=== PATIENT | male | born 1955 | race Caucasian/White ===

== ENCOUNTER 2016-06-17 19:45 | Emergency (ER) | payer BC, OTHER ==
[~2016-06-17] VITALS: Ht 172.7 cm; Wt 79.2 kg
[~2016-06-17 19:45] MED LIST: FENT25DI10 TP; FOLI1TAB7 PO; IBUP-103 PO; NXM/40 PO; OXYC1CAP5 PO; vitamin B12 INJ
[2016-06-17 19:53] VITALS: TEMP 36.6; Ht 172.7 cm; Wt 79.2 kg
[2016-06-17] MEDS ORDERED: PROMETHAZINE HCL INJ 25 MG/ML 1 ML VIAL IV STA (20:02)
[2016-06-17] MEDS ORDERED: SODIUM CHLORIDE 0.9% 1000ML 500 ML IV STA (20:02)
[2016-06-17] MEDS ORDERED: SODIUM CHLORIDE 0.9% 1000ML 1,000 ML IV STA (20:02)
[2016-06-17] MEDS ORDERED: ONDANSETRON 8 MG/54 ML D5W IV STA (20:02)
[2016-06-17] MEDS ORDERED: SENN8.6T36 PO (20:16)
[2016-06-17] MEDS ORDERED: DRGTP50 TD (20:16)
[2016-06-17] MEDS: MoRPHine SULFATE 4 MG/ML 1 ML CARP\\VIAL IV PRN ×2 (20:35→21:33)
[2016-06-17] MEDS ORDERED: FENTANYL CITRATE INJ 50 MCG/1 ML 2 ML VIAL IV PRN (20:45)
[2016-06-17 20:52] LABS: BUN/CREATININE RATIO 19.4 (10-20); CALCIUM 8.6 mg/dl (8.5-10.1); CREATININE 1.1 mg/dl (0.60-1.40); POTASSIUM 3.2 mmol/L (3.5-5.1)
[2016-06-17 20:54] LABS: ALB/GLOB RATIO 0.7 (0.9-2)
[2016-06-17 21:06] LABS: BASO % 0.1 %; BASO ABS # 0.01 K/uL (0-0.2); COMPLETE YES; DOHLE BODIES OCCASIONAL; EOS % 3.2 %; HYPERSEGMENTED POLYS 1+; IG% 0.3 %; LYMPH % 6.3 %; LYMPH ABS # 0.45 K/uL (1.2-3.4); MEAN CELL VOLUME 90.7 fL (80-100); MEAN CORPUSCULAR HGB CONC 34.2 g/dl (32-36); NEUT % 84.1 %; PLATELET COUNT 54 K/uL (130-400); PLT ESTIMATE DECREASED; RED BLOOD COUNT 4.19 M/uL (4.7-6.1); WHITE BLOOD COUNT 7.18 K/uL (4.8-10.8)
[2016-06-17] MEDS ORDERED: PROMETHAZINE HCL INJ 25 MG in SODIUM CHLORIDE 0.9% 50ML 50 ML IV STA (21:20)
--- NOTE | 2016-06-17 21:31 | DIAGNOSTIC IMAGING REPORT ---
ABDOMEN AND PELVIS CT WITHOUT CONTRAST CT DOSE: 432.92 mGy.cm HISTORY: Prostate cancer. Generalized abdominal pain. TECHNIQUE: Multiaxial CT images of the abdomen and pelvis were performed without contrast. COMPARISON STUDY: Abdomen and pelvis CT 10/29/2012. FINDINGS: Small left pleural effusion. Mild nodular thickening within the right pleural space. This may be due to a combination of postoperative change and pleural metastatic disease. There is a right basilar pleural catheter and a small right hydropneumothorax. Multiple bilateral pulmonary nodules identified which likely represents metastatic disease. There is a 4.3 cm round density within the base of the right lower lobe. This may represent a metastatic nodule rather than round atelectasis. No pneumoperitoneum. No pneumatosis. No suspicious lytic or blastic osseous lesions. There are right sixth through ninth lateral rib fractures. There are 2 stable hypodense lesions within the liver with the largest in the right hepatic lobe measuring 9 mm. These are technically too small to characterize but favor cysts. No new hepatic or splenic lesions. The gallbladder, pancreas, adrenal glands, and kidneys are unremarkable. No hydronephrosis. No retroperitoneal lymphadenopathy. The prostate gland is surgically absent. The latter is unremarkable. Suboptimal evaluation for bowel pathology due to the lack of intravenous and oral contrast. However, there is no definite bowel wall thickening or obstruction. Normal appendix. IMPRESSION: 1. No bowel wall thickening or obstruction. 2. Normal appendix. 3. Metastatic disease within the lung bases as described above. 3. There is a right basilar pleural catheter with a small right hydropneumothorax. 5. Small left pleural effusion. 6. Right lateral sixth through ninth rib fractures. Electronically signed by: Maximo Ely M.D. 06/17/2016 9:29 PM Dictated Date/Time: 06/17/2016 9:17 PM
--- NOTE | 2016-06-17 21:38 | EMERGENCY ROOM VISIT NOTE ---
History Report prepared by Kimmy: Sammy Hickey Under the Supervision of: Dr. Doyle Cutler M.D. First contact with patient: 19:59 Chief Complaint: ABDOMINAL PAIN Stated Complaint: PT DOES HAVE CANCER;VOMITING,ABD PAIN History of Present Illness The patient is a 60 year old male who presents to the Emergency Room with complaints of constant "sharp" RUQ abdominal pain beginning today. 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 His most recent chemotherapy treatment was a little over a week ago. The patient currently has a pleural effusion on the right side. He has a drain in place. The patient's notes that the patient has been constipated recently. She states that he is has been taking laxatives to help with the constipation. The patient has associated vomiting. He states that his constipation began first , followed by his abdominal pain, and then his vomiting. He has no history of abdominal surgeries besides a biopsy. Source of History: patient, spouse/significant other () Onset: Today Position: abdomen (RUQ) Quality: sharp Timing: constant Associated Symptoms: + vomiting Note: The patient has associated constipation. Review of Systems See HPI for pertinent positives & negatives. A total of 10 systems reviewed and were otherwise negative. Past Medical & Surgical Medical Problems: (1) Hx-Prostatic Malignancy (2) Lumbago (3) Reflux Esophagitis (4) Sarcomatoid carcinoma of lung Surgical Problems: (1) History of decompression of ulnar nerve (2) History of lumbosacral spine surgery (3) History of prostatectomy Family History No pertinent family history stated. Social History Smoking Status: Current Every Day Smoker Alcohol Use: occasionally Marital Status: Housing Status: lives with family Occupation Status: employed Current/Historical Medications Scheduled Esomeprazole Magnesium (Nexium), 40 MG PO Q2D Fentanyl (Fentanyl), 50 MCG TD [id number] Folic Acid (Folvite), 1 TAB PO DAILY Sennosides-Docusate Sodium (Docusate Sodium/Senna), 2 TAB PO DAILY [vitamin B12], INJ EVERY 90 DAYS Scheduled PRN Ibuprofen Tab (Advil), 200-600 MG PO Q4H PRN for Pain Oxycodone Hcl (Oxycodone Hcl), 5 MG PO Q6 PRN for Pain Promethazine Hcl (Phenergan), 25 MG PO Q6H PRN for Nausea Allergies Coded Allergies: Adhesives (Verified Allergy, Intermediate, rash blisters, 06/17/16) Hydromorphone (Unverified Adverse Reaction, Unknown, VOMITING, 06/17/16) HIS FAMILY DOES NOT WANT HIM TO GET DILAUDID BECAUSE IT MAKES HIM VOMIT Physical Exam Vital Signs Date Time Temp Pulse Resp B/P Pulse Ox O2 Delivery O2 Flow Rate FiO2 06/17/16 22:30 68 15 131/78 93 Room Air 06/17/16 21:38 56 16 137/84 95 Room Air 06/17/16 19:53 36.6 90 20 121/74 93 Room Air Physical Exam GENERAL: Patient is in no acute distress. HEENT: No acute trauma, normocephalic atraumatic, mucous membranes moist, no nasal congestion, no scleral icterus. NECK: No stridor, no adenopathy, no meningismus, trachea is midline. LUNGS: Decreased breath sounds on the right with some crackles on the left. No wheezing. HEART: Without murmurs gallops or rubs, regular rate and rhythm. CHEST: Bandage to the right lateral chest wall consistent with his pleural drain. ABDOMEN: Moderate RUQ tenderness to palpation. Soft, bowel sounds positive, no hernias, no peritonitis. EXTREMITIES: No cyanosis or edema, full range of motion of all the joints without pain or difficulty, no signs for acute trauma. NEUROLOGIC: Oriented x 3, no acute motor or sensory deficits, no focal weakness. SKIN: No rash, no jaundice, no diaphoresis. Medical Decision & Procedures ER Provider Diagnostic Interpretation: X ray results and stated below per my interpretation and radiologist interpretation. Other radiology results and stated below per my review and radiologist interpretation: ABDOMINAL ULTRASOUND, RIGHT UPPER QUADRANT FINDINGS: Pancreas: The pancreatic tail is obscured by overlying bowel gas. The remaining portions of the pancreas are within normal limits. Liver: No hepatic masses. Trace perihepatic fluid. Gallbladder: Gallbladder sludge. No gallbladder wall thickening. A few small gallbladder polyps are again noted. These are subcentimeter in size. CBD: 3 mm. Right kidney: No hydronephrosis. IMPRESSION: 1. Gallbladder sludge with a few subcentimeter gallbladder polyps. No gallbladder wall thickening. 2. Trace perihepatic fluid. Electronically signed by: Maximo Ely M.D. ABDOMEN AND PELVIS CT WITHOUT CONTRAST FINDINGS: Small left pleural effusion. Mild nodular thickening within the right pleural space. This may be due to a combination of postoperative change and pleural metastatic disease. There is a right basilar pleural catheter and a small right hydropneumothorax. Multiple bilateral pulmonary nodules identified which likely represents metastatic disease. There is a 4.3 cm round density within the base of the right lower lobe. This may represent a metastatic nodule rather than round atelectasis. No pneumoperitoneum. No pneumatosis. No suspicious lytic or blastic osseous lesions. There are right sixth through ninth lateral rib fractures. There are 2 stable hypodense lesions within the liver with the largest in the right hepatic lobe measuring 9 mm. These are technically too small to characterize but favor cysts. No new hepatic or splenic lesions. The gallbladder, pancreas, adrenal glands, and kidneys are unremarkable. No hydronephrosis. No retroperitoneal lymphadenopathy. The prostate gland is surgically absent. The latter is unremarkable. Suboptimal evaluation for bowel pathology due to the lack of intravenous and oral contrast. However, there is no definite bowel wall thickening or obstruction. Normal appendix. IMPRESSION: 1. No bowel wall thickening or obstruction. 2. Normal appendix. 3. Metastatic disease within the lung bases as described above. 3. There is a right basilar pleural catheter with a small right hydropneumothorax. 5. Small left pleural effusion. 6. Right lateral sixth through ninth rib fractures. Electronically signed by: Maximo Ely M.D. CHEST ONE VIEW PORTABLE FINDINGS: Left subclavian Port-A-Cath terminates in the distal SVC. Right basilar pleural catheter is not significant changed in position. There is again noted a right-sided hydropneumothorax. The fluid component remains the same. However, the pneumothorax component has progressed. This demonstrates a lateral pleural gap of 1.8 cm. Previously, this was no significant lateral pleural gap. Trace left pleural effusion. The heart is normal in size. Right pleural thickening is again noted. IMPRESSION: 1. There is again noted a right-sided hydropneumothorax. The pneumothorax component has increased in size in the interval. However, the right basilar chest tube is unchanged in position. 2. Trace left pleural effusion. 3. Right nodular pleural thickening persists. Electronically signed by: Maximo Ely M.D. Laboratory Results 06/17/16 20:23 Red Blood Count 4.19, Mean Corpuscular Volume 90.7, Mean Corpuscular Hemoglobin 31.0, Mean Corpuscular Hemoglobin Concent 34.2, Mean Platelet Volume 10.0, Neutrophils (%) (Auto) 84.1, Lymphocytes (%) (Auto) 6.3, Monocytes (%) (Auto) 6.0, Eosinophils (%) (Auto) 3.2, Basophils (%) (Auto) 0.1, Neutrophils # (Auto) 6.04, Lymphocytes # (Auto) 0.45, Monocytes # (Auto) 0.43, Eosinophils # (Auto) 0.23, Basophils # (Auto) 0.01 06/17/16 20:23 Test 06/17/16 20:23 White Blood Count 7.18 K/uL (4.8-10.8) Red Blood Count 4.19 M/uL (4.7-6.1) Hemoglobin 13.0 g/dL (14.0-18.0) Hematocrit 38.0 % (42-52) Mean Corpuscular Volume 90.7 fL (80-100) Mean Corpuscular Hemoglobin 31.0 pg (25-34) Mean Corpuscular Hemoglobin Concent 34.2 g/dl (32-36) Platelet Count 54 K/uL (130-400) Mean Platelet Volume 10.0 fL (7.4-10.4) Neutrophils (%) (Auto) 84.1 % Lymphocytes (%) (Auto) 6.3 % Monocytes (%) (Auto) 6.0 % Eosinophils (%) (Auto) 3.2 % Basophils (%) (Auto) 0.1 % Neutrophils # (Auto) 6.04 K/uL (1.4-6.5) Lymphocytes # (Auto) 0.45 K/uL (1.2-3.4) Monocytes # (Auto) 0.43 K/uL (0.11-0.59) Eosinophils # (Auto) 0.23 K/uL (0-0.5) Basophils # (Auto) 0.01 K/uL (0-0.2) RDW Standard Deviation 47.5 fL (36.4-46.3) RDW Coefficient of Variation 14.4 % (11.5-14.5) Immature Granulocyte % (Auto) 0.3 % Immature Granulocyte # (Auto) 0.02 K/uL (0.00-0.02) Hypersegmented Polys 1+ Dohle Bodies OCCASIONAL Platelet Estimate DECREASED Anion Gap 11.0 mmol/L (3-11) Est Creatinine Clear Calc Drug Dose 67.3 ml/min Estimated GFR () 82.9 Estimated GFR (Non- 71.6 BUN/Creatinine Ratio 19.4 (10-20) Calcium Level 8.6 mg/dl (8.5-10.1) Total Bilirubin 0.7 mg/dl (0.2-1) Aspartate Amino Transf (AST/SGOT) 13 U/L (15-37) Alanine Aminotransferase (ALT/SGPT) 26 U/L (12-78) Alkaline Phosphatase 105 U/L (45-117) Total Protein 7.2 gm/dl (6.4-8.2) Albumin 2.9 gm/dl (3.4-5.0) Globulin 4.3 gm/dl (2.5-4.0) Albumin/Globulin Ratio 0.7 (0.9-2) Lipase 79 U/L (73-393) Laboratory results reviewed by me. Medications Administered Medications (Trade) Dose Ordered Sig/Chao Route Start Time Stop Time Status Last Admin Dose Admin Sodium Chloride (Nss 1000ml) 500 ml @ 999 mls/hr Q31M STAT IV 06/17/16 20:02 06/17/16 20:32 DC 06/17/16 20:02 999 MLS/HR Promethazine HCl (Phenergan Inj) 6.25 mg NOW STAT IV 06/17/16 20:02 06/17/16 20:06 DC 06/17/16 20:34 6.25 MG Ondansetron HCl 8 mg 8 mg NOW STAT IV 06/17/16 20:02 06/17/16 20:06 DC 06/17/16 20:34 8 MG Sodium Chloride (Nss 1000ml) 1,000 ml @ 200 mls/hr Q5H STAT IV 06/17/16 20:02 06/18/16 01:01 06/17/16 20:36 200 MLS/HR Morphine Sulfate (MoRPHine SULFATE INJ) 4 mg Q30M PRN IV 06/17/16 20:15 07/01/16 20:14 06/17/16 21:33 4 MG Fentanyl Citrate (Fentanyl Inj) 100 mcg Q15M PRN IV 06/17/16 20:45 07/01/16 20:44 06/17/16 20:52 100 MCG ED Course 1958: The patient was evaluated in room C8. A complete history and physical exam was performed. 2001: Ordered NSS 1000 mL @ 200 mL/hr IV, Zofran 8 mg IV, Phenergan Inj 6.25 mg IV, NSS 500 mL @ 999 mL/hr IV. 2014: The patient would like something more for his pain. Ordered Morphine Sulfate 4 mg IV. 2044: Ordered Fentanyl Inj 100 mcg IV. 2116: I checked in on the patient. He just returned from CT, and is dry heaving. His pain has not improved. 2119: Ordered Promethazine HCl 25 mg/NSS 51 mL @ 204 mL/hr IV. 2208: I reassessed the patient. He is more comfortable. I updated him of his imaging results. He was previously unaware of the rib fractures. 2301: Reevaluated the patient. He would like to go home. Discussed results and discharge instructions: he verbalized understanding and agreement. Ordered Phenergan Supp 50 mg IN. The patient is ready for discharge. Medical Decision The patient is a 60 year old male who presents to the ED with complaints of RUQ abdominal pain. Differential diagnoses considered include viral illness, bowel obstruction, dehydration, bowel rupture, biliary colic, appendicitis, and pancreatitis. There is no leukocytosis or concerning anemia. No significant electrolyte abnormality, kidney failure, hepatitis or pancreatitis. Chest x-ray shows chronic findings on the right, there was no new pneumonia, no free air. Gallbladder ultrasound shows sludge, no acute cholecystitis. Abdominal and pelvis CT shows 3 rib fractures on the right, chronic findings of the right lung , there was no acute bowel obstruction. CT scan showed a normal appendix. The patient presents with vomiting, right upper quadrant abdominal pain. He has a known malignancy to the right lung. He is on chemotherapy. The patient received IV saline, IV morphine and IV Zofran. He required IV Phenergan and IV fentanyl for better symptom control. I talked the patient about staying in the hospital versus going home, he does not want to stay, his family does not want him to stay. I do think his pain appears to be from his right rib fractures. The fractures could be from his coughing. Certainly, a viral illness or biliary colic is also a consideration. The patient is going to be discharged with nausea medication, he already has Zofran and another type of nausea medication at home. I will add some Phenergan. He has pain medication to use as needed. He will rest and slowly advance his diet. If worsening, he will return. Impression Primary Impression: Vomiting Additional Impressions: Upper abdominal pain, Fracture of rib of right side Scribe Attestation The scribe's documentation has been prepared under my direction and personally reviewed by me in its entirety. I confirm that the note above accurately reflects all work, treatment, procedures, and medical decision making performed by me. Departure Information Dispostion Home / Self-Care Prescriptions Promethazine Hcl (Phenergan) 25 Mg Tab 25 MG PO Q6H Y for Nausea, #12 TAB Prov: Doyle Cutler M.D. 06/17/16 Referrals Leny Rehman M.D. (PCP) Forms HOME CARE DOCUMENTATION FORM, IMPORTANT VISIT INFORMATION, My [facility] Patient Instructions A Signature Page Additional Instructions phenergan 1 tab orally for nausea as needed may try phenergan suppositories also if needed bland diet--crackers, soup, toast, gatorade return if worsening see lian pimentel this week for a recheck continue the meds for constipation as before
--- NOTE | 2016-06-17 22:25 | DIAGNOSTIC IMAGING REPORT ---
ABDOMINAL ULTRASOUND, RIGHT UPPER QUADRANT HISTORY: Right upper quadrant abdominal pain.. COMPARISON: Abdominal ultrasound 06/17/2016. FINDINGS: Pancreas: The pancreatic tail is obscured by overlying bowel gas. The remaining portions of the pancreas are within normal limits. Liver: No hepatic masses. Trace perihepatic fluid. Gallbladder: Gallbladder sludge. No gallbladder wall thickening. A few small gallbladder polyps are again noted. These are subcentimeter in size. CBD: 3 mm. Right kidney: No hydronephrosis. IMPRESSION: 1. Gallbladder sludge with a few subcentimeter gallbladder polyps. No gallbladder wall thickening. 2. Trace perihepatic fluid. Electronically signed by: Maximo Ely M.D. 06/17/2016 10:24 PM Dictated Date/Time: 06/17/2016 10:21 PM
[2016-06-17] MEDS ORDERED: PROMETHAZINE HCL 25 MG SUPP PR STA (23:02)
[2016-06-17] MEDS ORDERED: PROM25TA9 PO (23:08)
[2016-06-17 23:20] VITALS: BP 131/78; PULSE 68; O2SAT 93
[2016-07-20] MEDS ORDERED: DRGTP100 TD (08:51)
[2016-07-20] MEDS ORDERED: MGNO400 PO (13:18)
[2016-07-27] MEDS ORDERED: ATV/1 PO (10:55)
[2016-07-27] MEDS ORDERED: DRGTP100 TOP (10:55)
== END 2016-06-17 23:20 | disposition home or self-care (01) ==
LOC: C.EDB 19:48 → C.EDC 23:20
DX: S22.41XA Multiple fractures of ribs, right side, initial encounter for closed fracture (principal); X58.XXXA Exposure to other specified factors, initial encounter; R10.10 Upper abdominal pain, unspecified; R11.2 Nausea with vomiting, unspecified; C34.91 Malignant neoplasm of unspecified part of right bronchus or lung; J90 Pleural effusion, not elsewhere classified; R91.8 Other nonspecific abnormal finding of lung field; J94.8 Other specified pleural conditions; K21.0 Gastro-esophageal reflux disease with esophagitis; F17.200 Nicotine dependence, unspecified, uncomplicated; Z85.118 Personal history of other malignant neoplasm of bronchus and lung; Z85.46 Personal history of malignant neoplasm of prostate; Z98.890 Other specified postprocedural states; Z79.899 Other long term (current) drug therapy; Z88.2 Allergy status to sulfonamides; Z91.09 Other allergy status, other than to drugs and biological substances

== ENCOUNTER → 2016-06-28 | Outpatient (CLI) | payer BC ==
[~2016-06-28] MED LIST changes: +ATRINS INH; +ATV/1 PO; +CYAN1DRO; +CYAN1KIT3 INJ; +DRGTP100 TD; +DRGTP100 TOP; +DRGTP12 TD; +DRGTP50 TD; -FENT25DI10 TP; +FENT75DI2 TD; +GUAI1TAB68 PO; +LDDP5 TD; +LEVO1TAB35 PO; +MGNO400 PO; +MRLP17X PO; +NCY50 PO; +NRN100 PO; +PRD10 PO; +PRD20 PO; +PROM25TA9 PO; +SENN8.6T36 PO; +XPNINS1255 INH
[2016-06-28 14:35] VITALS: BP 107/68; PULSE 109; TEMP 37.1; O2SAT 92
--- NOTE | 2016-06-28 16:03 | Radiation Oncology Follow-Up ---
Radiation Oncology Follow-Up Date of Visit Jun 28, 2016. 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 Biopsy - 04/07/2016 2 status post completion of radiation therapy 05/24/2016 received 4000 cGy 3. Systemic chemotherapy Last Edited By: Brenda Parra on Jun 28, 2016 15: 53 (Brenda Parra PA-C) History of Present Illness Mr. Johnston is a 60 year old male with a significant smoking history who recently complained of right-sided chest pain and increased shortness of breath over several week period. He did have a CT thorax completed in 03/13/2016 which revealed "IMPRESSION: 1. There is no evidence of pulmonary embolus in the main, lobar, or segmental pulmonary arteries. 2. Emphysema. 3. There is a 5.7 cm right lower lobe mass. This should be considered lung cancer until proven otherwise. 4. There is evidence of right-sided pleural metastatic disease within associated pleural effusion. 5. No left-sided pulmonary lesions are seen. 6. There are prominent right hilar lymph nodes, likely representing kareem involvement." The patient then subsequently went to [facility] for further workup and care. He was seen at the multidisciplinary prospective thoracic clinic at the [facility]. The patient had a bronchoscopy with EBUS guided biopsy as well as a diagnostic thoracentesis on 03/22/2016. Pathology was negative for malignancy and cytology of the pleural fluid as well as the biopsies of the mediastinal lymph node stations (pathology report unavailable at the time of consultation, as per patient). The patient subsequently had a PET/CT scan on 03/24/2016 which revealed "a intensely FDG avid right lower lobe necrotic mass measuring 5.4 cm in the greatest dimension with avid pleural thickening involving the right lung and mediastinal pleura. Additionally, there was an intensely FDG avid right axillary lymph node suspicious for metastatic disease. Also noted were mildly FDG mediastinal lymph nodes. Focal round intense FDG activity within the left erector spinae muscle posterior to the left posterior 11th rib without CT correlate concerning for intramuscular metastatic deposit. 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 Non-FDG avid loculated small right pleural effusion. 2 mm noncalcified nodule in the left upper lobe. Diffuse increased FDG uptake within the axial and proximal appendicular skeletal bone marrow which may represent reactive marrow." The patient subsequently underwent a right sided medial thoracoscopy, pleural biopsy, Pleurx catheter placement and talc pleurodesis by Dr. Giorgi Arizmendi ( Thoracic Surgery) and Dr. Grossman (interventional pulmonology). Pathology revealed sarcomatoid epithelial spindled neoplasm of the pleura. The pathology was sent down for second opinion consultation at [facility] which help to make a final diagnosis. Ultimately, the recommendation was made for no surgical intervention by Dr. Arizmendi. The patient was also seen by medical oncology during his course at [facility] by Dr. Mireles who recommended consideration for palliative radiation therapy for his areas of chest wall tenderness as well as full dose systemic chemotherapy with carboplatin and pemetrexed. We are now seeing the patient in consultation discussed the role of palliative radiation therapy. Currently, the patient is having significant chest wall tenderness and pain along the region of where his Pleurx catheter is. Otherwise, he has no significant complaints. Status post completion of radiation therapy at the right chest wall completed received 4000 cGy (Brenda Parra PA-C) Interim History He has had improvement in pain of the right anterior chest wall. He now gives us a pain level of 6. He has fentanyl patches and also uses oxycodone every 4 hours. Intermittently he'll use Advil. He now has started chemotherapy. He does have some side effects of nausea and vomiting. He does have some discomfort in the lower back. He has a discomfort of the anterior thighs. He does have a problem with anxiety. At times he'll feel short of breath and become anxious. After relaxing for 5 minutes this will resolve. His next treatment will be 06/29/2016. It is planned that he'll have 4 cycles before imaging. (Brenda Parra PA-C) Allergies Coded Allergies: Adhesives (Verified Allergy, Intermediate, rash blisters, 06/17/16) Hydromorphone (Unverified Adverse Reaction, Unknown, VOMITING, 06/17/16) HIS FAMILY DOES NOT WANT HIM TO GET DILAUDID BECAUSE IT MAKES HIM VOMIT Home Medications Scheduled Esomeprazole Magnesium (Nexium), 40 MG PO Q2D Fentanyl (Fentanyl), 50 MCG TD CQ72HR Folic Acid (Folvite), 1 TAB PO DAILY Oxycodone Hcl (Oxycodone Hcl), 5 MG PO Q4H Sennosides-Docusate Sodium (Docusate Sodium/Senna), 2 TAB PO DAILY [vitamin B12], INJ EVERY 90 DAYS Scheduled PRN Ibuprofen Tab (Advil), 200-600 MG PO Q4H PRN for Pain Promethazine Hcl (Phenergan), 25 MG PO Q6H PRN for Nausea Review of Systems Gastrointestinal: Symptoms: WNL GI Comments: Post chemo n/v Oral: Symptoms: Scant Saliva/Dry Mouth Other Oral Symptoms: Dry mouth Respiratory: Symptoms: WNL Sputum Character: productive cough at times of thick clear sputum Other Respiratory: MENDOZA, no worsening of SOB per patient Urinary: Symptoms: WNL Skin: Symptoms: No Problems Additional Notes: He completed a distress management report and answered "no" to all questions. (Brenda Parra PA-C) Physical Exam Vital Signs Date Time Temp Pulse Resp B/P Pulse Ox O2 Delivery O2 Flow Rate FiO2 06/28/16 14:35 37.1 109 20 107/68 92 Fatigue: Mild General Appearance: no apparent distress Eyes: normal inspection, EOMI ENT: normal ENT inspection, hearing grossly normal Respiratory/Chest: lungs clear, no respiratory distress, no accessory muscle use, + pertinent finding (dry desquamation in the right anterior, lateral, posterior thorax. Catheter in place.) Cardiovascular: regular rate, rhythm, no gallop, no murmur Extremities: no pedal edema Neurologic/Psychiatric: no motor/sensory deficits, alert, normal mood/affect Skin: warm/dry Lymphatic: no adenopathy (Brenda Parra PA-C) Laboratory Studies Test 04/25/16 16:12 06/17/16 20:23 Prostate Specific Antigen < 0.010 ng/ml (0.000-4.000) White Blood Count 7.18 K/uL (4.8-10.8) Red Blood Count 4.19 M/uL (4.7-6.1) Hemoglobin 13.0 g/dL (14.0-18.0) Hematocrit 38.0 % (42-52) Mean Corpuscular Volume 90.7 fL (80-100) Mean Corpuscular Hemoglobin 31.0 pg (25-34) Mean Corpuscular Hemoglobin Concent 34.2 g/dl (32-36) Platelet Count 54 K/uL (130-400) Mean Platelet Volume 10.0 fL (7.4-10.4) Neutrophils (%) (Auto) 84.1 % Lymphocytes (%) (Auto) 6.3 % Monocytes (%) (Auto) 6.0 % Eosinophils (%) (Auto) 3.2 % Basophils (%) (Auto) 0.1 % Neutrophils # (Auto) 6.04 K/uL (1.4-6.5) Lymphocytes # (Auto) 0.45 K/uL (1.2-3.4) Monocytes # (Auto) 0.43 K/uL (0.11-0.59) Eosinophils # (Auto) 0.23 K/uL (0-0.5) Basophils # (Auto) 0.01 K/uL (0-0.2) RDW Standard Deviation 47.5 fL (36.4-46.3) RDW Coefficient of Variation 14.4 % (11.5-14.5) Immature Granulocyte % (Auto) 0.3 % Immature Granulocyte # (Auto) 0.02 K/uL (0.00-0.02) Hypersegmented Polys 1+ Dohle Bodies OCCASIONAL Platelet Estimate DECREASED Sodium Level 136 mmol/L (136-145) Potassium Level 3.2 mmol/L (3.5-5.1) Chloride Level 95 mmol/L (98-107) Carbon Dioxide Level 30 mmol/L (21-32) Anion Gap 11.0 mmol/L (3-11) Blood Urea Nitrogen 21 mg/dl (7-18) Creatinine 1.10 mg/dl (0.60-1.40) Est Creatinine Clear Calc Drug Dose 67.3 ml/min Estimated GFR () 82.9 Estimated GFR (Non- 71.6 BUN/Creatinine Ratio 19.4 (10-20) Random Glucose 145 mg/dl (70-99) Calcium Level 8.6 mg/dl (8.5-10.1) Total Bilirubin 0.7 mg/dl (0.2-1) Aspartate Amino Transferase (AST) 13 U/L (15-37) Alanine Aminotransferase (ALT) 26 U/L (12-78) Alkaline Phosphatase 105 U/L (45-117) Total Protein 7.2 gm/dl (6.4-8.2) Albumin 2.9 gm/dl (3.4-5.0) Globulin 4.3 gm/dl (2.5-4.0) Albumin/Globulin Ratio 0.7 (0.9-2) Lipase 79 U/L (73-393) (Brenda Parra PA-C) Assessment & Plan Plan: Patient was also seen and examined by Dr. Jensen. His images were reviewed. He'll continue systemic chemotherapy. Dr. Castellano plans to reimage after 4 cycles per the patient. I've asked him to call Dr. Hernandez office in regards to the issue he has had with anxiety. He may benefit from a daily medication rather than something on a when necessary basis. A follow-up appointment with our office was not given. He may call if he has any questions or concerns we would be happy to see him. (Brenda Parra PA-C) I agree with note created by Brenda Parra PA-C. I reviewed the patient's chart and information with her. I have examined and evaluated the patient. I reviewed relevant clinical information and answered the patient's and/or family' s questions. (Veeral. Jensen MD) Total Time In Follow-Up I spent 15 minutes speaking to the patient and performing examination. I spent 15 minutes reviewing information and completing this note (Brenda Parra PA-C) I spent 15 minutes examining and counseling the patient. (Veeral. Jensen MD) Copy To Leny Rehman M.D.; Tuan Castellano MD Problem Qualifiers (1) Sarcomatoid carcinoma of lung: Laterality: right Qualified Codes: C34.91 - Malignant neoplasm of unspecified part of right bronchus or lung
== END | disposition home or self-care (01) ==
LOC: C.ONC 14:15
PROVIDERS: ATTEND Radiology Radiation Oncology
DX: Z08 Encounter for follow-up examination after completed treatment for malignant neoplasm (principal); Z92.3 Personal history of irradiation; Z85.118 Personal history of other malignant neoplasm of bronchus and lung

== ENCOUNTER 2016-07-18 08:55 | Inpatient (IN) | payer BC ==
[~2016-07-18] VITALS: Ht 172.7 cm; Wt 75.0 kg
[~2016-07-18 08:55] MED LIST changes: -ATRINS INH; -ATV/1 PO; -CYAN1DRO; -CYAN1KIT3 INJ; -DRGTP100 TD; -DRGTP100 TOP; -DRGTP12 TD; -FENT75DI2 TD; -GUAI1TAB68 PO; -LDDP5 TD; -LEVO1TAB35 PO; -MGNO400 PO; -MRLP17X PO; -NCY50 PO; -NRN100 PO; -PRD10 PO; -PRD20 PO; -XPNINS1255 INH
[2016-07-18] MEDS ORDERED: MRLP17X PO (09:32)
[2016-07-18] MEDS ORDERED: FENT75DI2 TD (09:32)
[2016-07-18] MEDS ORDERED: CYAN1DRO (09:32)
[2016-07-18] MEDS ORDERED: CYAN1KIT3 INJ (09:34)
--- NOTE | 2016-07-18 10:16 | EMERGENCY ROOM VISIT NOTE ---
History Report prepared by Kimmy: Jose Servin Under the Supervision of: Dr. Anahi Briceno M.D. First contact with patient: 09:48 Chief Complaint: PAIN (GENERALIZED) Stated Complaint: SEVERE PAIN FROM PLURAL TUBE/MESOTHELIOMA History of Present Illness The patient is a 60 year old male with a history of mesothelioma who presents to the Emergency Room with complaints of persistent pain associated with a right pleural tube for the past six days. The patient has had the pain since his last tube drainage. The pain is rated 6/10 in severity. The patient has the tube drained 1-2 times per week. The patient usually experiences pain when being drained, which typically resolves afterwards. The pain did not resolved since his last drainage. 75-100 ccs of clear-yellowish fluid is typically drained. The patient follows up with Oncology at [facility]. They called his Oncologist, who told them that he may need to have the tube removed. The patient takes Oxycodone and a 75 mcg Fentanyl patch for pain. The tube was placed this past March. The patient's notes that he is unable to sleep due to the pain. The patient denies any fevers. Source of History: patient, spouse/significant other Onset: six days Position: other (right pleural tube) Symptom Intensity: 6/10 Timing: other (persistent) Associated Symptoms: No fevers Review of Systems See HPI for pertinent positives & negatives. A total of 10 systems reviewed and were otherwise negative. Past Medical & Surgical Medical Problems: (1) Hx-Prostatic Malignancy (2) Hydropneumothorax (3) Lumbago (4) Mesothelioma (5) Reflux Esophagitis (6) Sarcomatoid carcinoma of lung Surgical Problems: (1) History of decompression of ulnar nerve (2) History of lumbosacral spine surgery (3) History of prostatectomy Family History Diabetes mellitus Gallbladder disease Social History Smoking Status: Never Smoker Alcohol Use: occasionally Marital Status: Housing Status: lives with family Occupation Status: employed Current/Historical Medications Scheduled Cyanocobalamin (B-12 Compliance Injection), 1,000 MCG INJ UD Esomeprazole Magnesium (Nexium), 40 MG PO DAILY Fentanyl (Fentanyl), 75 MCG TD CQ72HR Folic Acid (Folvite), 1 MG PO DAILY Oxycodone Hcl (Oxycodone Hcl), 10 MG PO Q4H Polyethylene (Miralax), 17 GM PO DAILY Sennosides-Docusate Sodium (Docusate Sodium/Senna), 2 TAB PO DAILY Scheduled PRN Ibuprofen Tab (Advil), 200-600 MG PO Q4H PRN for Pain Promethazine Hcl (Phenergan), 25 MG PO Q6H PRN for Nausea Allergies Coded Allergies: Adhesives (Verified Allergy, Intermediate, rash blisters, 07/18/16) Hydromorphone (Verified Adverse Reaction, Intermediate, Severe N/V, 07/19/16 ) HIS FAMILY DOES NOT WANT HIM TO GET DILAUDID BECAUSE IT MAKES HIM VOMIT Physical Exam Vital Signs Date Time Temp Pulse Resp B/P Pulse Ox O2 Delivery O2 Flow Rate FiO2 07/18/16 14:39 94 21 101/72 92 Room Air 07/18/16 13:30 94 13 106/74 98 Room Air 07/18/16 13:02 95 07/18/16 12:01 93 16 96/66 98 Nasal Cannula 1.0 07/18/16 11:15 95 Nasal Cannula 2.0 07/18/16 11:14 87 Room Air 07/18/16 11:05 95 18 98/71 92 Room Air 07/18/16 09:47 104 21 99/69 90 Room Air 07/18/16 09:15 105 24 106/69 90 07/18/16 09:13 102 07/18/16 09:13 90 Room Air 07/18/16 08:59 36.8 155 19 87/68 93 Room Air Physical Exam Vital signs reviewed. General: Chronically ill appearing, in no significant distress. HEENT: No scleral icterus, PERRLA, neck supple. Atraumatic. Cardiovascular: Regular rate and rhythm, no extra sounds. Pulmonary: Clear to auscultation bilaterally, normal work of breathing. Right pleural tube in place, no cellulitis, draining straw colored fluid. Abdomen: Soft, nontender, nondistended, positive bowel sounds. Musculoskeletal: Atraumatic, no peripheral edema. Neurologic: Patient awake alert and oriented x 3 Skin: Warm, dry, no rash Medical Decision & Procedures ER Provider Diagnostic Interpretation: X-ray results as stated below per interpretation by me and the radiologist: CHEST 2 VIEWS ROUTINE CLINICAL HISTORY: Wheezing ileum. Hydropneumothorax. COMPARISON STUDY: 06/17/2016 FINDINGS: There is a left-sided A-Port catheter present. There is a right-sided pleural drain present. There is a persistent small loculated right-sided hydropneumothorax. There is persistent right-sided pleural thickening. There is mild interstitial thickening right greater than left. There is no lobar consolidation. There is minor blunting of the left lateral costophrenic angle.[ IMPRESSION: Slight interval decrease in the size of the loculated right-sided hydropneumothorax. There is a right-sided pleural drain. There is persistent right-sided pleural thickening. Electronically signed by: Mati Merritt M.D. 07/18/2016 11:40 AM Dictated Date/Time: 07/18/2016 11:38 AM Laboratory Results Test 07/18/16 11:00 Immature Granulocyte % (Auto) 0.4 % White Blood Count 5.61 K/uL (4.8-10.8) Red Blood Count 2.87 M/uL (4.7-6.1) Hemoglobin 9.0 g/dL (14.0-18.0) Hematocrit 26.2 % (42-52) Mean Corpuscular Volume 91.3 fL (80-100) Mean Corpuscular Hemoglobin 31.4 pg (25-34) Mean Corpuscular Hemoglobin Concent 34.4 g/dl (32-36) Platelet Count 90 K/uL (130-400) Mean Platelet Volume 9.2 fL (7.4-10.4) Neutrophils (%) (Auto) 67.1 % Lymphocytes (%) (Auto) 4.3 % Monocytes (%) (Auto) 17.8 % Eosinophils (%) (Auto) 10.2 % Basophils (%) (Auto) 0.2 % Neutrophils # (Auto) 3.77 K/uL (1.4-6.5) Lymphocytes # (Auto) 0.24 K/uL (1.2-3.4) Monocytes # (Auto) 1.00 K/uL (0.11-0.59) Eosinophils # (Auto) 0.57 K/uL (0-0.5) Basophils # (Auto) 0.01 K/uL (0-0.2) Immature Granulocyte # (Auto) 0.02 K/uL (0.00-0.02) Dohle Bodies 1+ Platelet Estimate DECREASED Total Bilirubin 0.5 mg/dl (0.2-1) Direct Bilirubin 0.2 mg/dl (0-0.2) Aspartate Amino Transf (AST/SGOT) 13 U/L (15-37) Alanine Aminotransferase (ALT/SGPT) 16 U/L (12-78) Alkaline Phosphatase 111 U/L (45-117) Total Protein 6.6 gm/dl (6.4-8.2) Albumin 2.4 gm/dl (3.4-5.0) Laboratory results per my review. Medications Administered Medications (Trade) Dose Ordered Sig/Chao Route Start Time Stop Time Status Last Admin Dose Admin Sodium Chloride 500 ml @ 999 mls/hr Q31M STAT IV 07/18/16 10:38 07/18/16 11:08 DC 07/18/16 11:04 999 MLS/HR Sodium Chloride (Nss 1000ml) 1,000 ml @ 125 mls/hr Q8H STAT IV 07/18/16 10:38 07/18/16 18:37 DC 07/18/16 11:03 125 MLS/HR Fentanyl Citrate (Fentanyl Inj) 75 mcg NOW STAT IV 07/18/16 10:38 07/18/16 10:43 DC 07/18/16 11:04 75 MCG Tramadol HCl (Ultram Tab) 50 mg Q6H PRN PO 07/18/16 16:45 08/17/16 16:44 07/18/16 17:27 50 MG ECG Indication: chest pain Rate (beats per minute): 94 Rhythm: normal sinus Findings: no acute ischemic change, no ectopy ED Course 1010: Past medical records reviewed. The patient was evaluated in room A12b. A complete history and physical examination was performed. 1038: Fentanyl 75 mcg IV, NSS 1000 ml @ 125 mls/hr, NSS 500 ml @ 999 mls/hr. 1300 Discussed the case with Dr. Castellano (Oncologist). 1600: Discussed the case with Dr. Owen, [facility] Hospitalist. The patient will be evaluated. Medical Decision Differential diagnosis: Pleurisy, pleural effusion, pneumothorax, malignancy, radiculopathy, pneumonia, PE. This pt was evaluated and appeared to be in some discomfort. IV access was obtained and lab work was drawn. Pt was medicated with IV fentanyl and hydrated with NSS. CXR was performed and is read as above. Pt was discussed with the oncologist Dr Castellano who suggests evaluation by Dr Thompson of thoracic surgery for potential removal of the pleural catheter. Pt lab work is fairly unrevealing. He has a chronic anemia. Pt seems happy with plan for admission for pain control and thoracic surgery evaluation. The hospitalist was consulted. Consults Time Called: 1250 Consulting Physician: Dr. Castellano (Oncologist). Returned Call: 1300 1300: Discussed the case with Dr. Castellano (Oncologist). Additional Consults: Time Called: 1550 Consulted Physician: Dr. Owen, [facility] Hospitalist Returned Call: 1600 Additional Comments: 1600: Discussed the case with Dr. Owen [facility]. The patient will be evaluated. Impression Primary Impression: Pleuritic chest pain Additional Impression: Mesothelioma Scribe Attestation The scribe's documentation has been prepared under my direction and personally reviewed by me in its entirety. I confirm that the note above accurately reflects all work, treatment, procedures, and medical decision making performed by me. Departure Information Dispostion Being Evaluated By Hospitalist Referrals Leny Rehman M.D. (PCP) Patient Instructions My [facility] Problem Qualifiers
[2016-07-18] MEDS ORDERED: FENTANYL CITRATE INJ 50 MCG/1 ML 2 ML VIAL IV STA (10:38)
[2016-07-18] MEDS ORDERED: SODIUM CHLORIDE 0.9% 500ML 500 ML IV STA (10:38)
[2016-07-18] MEDS ORDERED: SODIUM CHLORIDE 0.9% 1000ML 1,000 ML IV STA (10:38)
[2016-07-18 11:29] LABS: HEMATOCRIT 26.2 % (42-52); MEAN CELL VOLUME 91.3 fL (80-100); MEAN CORPUSCULAR HEMOGLOBIN 31.4 pg (25-34); MEAN CORPUSCULAR HGB CONC 34.4 g/dl (32-36); RED BLOOD COUNT 2.87 M/uL (4.7-6.1); WHITE BLOOD COUNT 5.61 K/uL (4.8-10.8)
[2016-07-18 11:33] LABS: MEAN PLATELET VOLUME 9.2 fL (7.4-10.4); PLATELET COUNT 90 K/uL (130-400)
--- NOTE | 2016-07-18 11:41 | DIAGNOSTIC IMAGING REPORT ---
CHEST 2 VIEWS ROUTINE CLINICAL HISTORY: Wheezing ileum. Hydropneumothorax. COMPARISON STUDY: 06/17/2016 FINDINGS: There is a left-sided A-Port catheter present. There is a right-sided pleural drain present. There is a persistent small loculated right-sided hydropneumothorax. There is persistent right-sided pleural thickening. There is mild interstitial thickening right greater than left. There is no lobar consolidation. There is minor blunting of the left lateral costophrenic angle.[ IMPRESSION: Slight interval decrease in the size of the loculated right-sided hydropneumothorax. There is a right-sided pleural drain. There is persistent right-sided pleural thickening. Electronically signed by: Mati Merritt M.D. 07/18/2016 11:40 AM Dictated Date/Time: 07/18/2016 11:38 AM
[2016-07-18 11:46] LABS: BUN/CREATININE RATIO 15.3 (10-20); CALCIUM 8.7 mg/dl (8.5-10.1); CREATININE 0.81 mg/dl (0.60-1.40); POTASSIUM 3.9 mmol/L (3.5-5.1)
[2016-07-18 12:05] LABS: BASO % 0.2 %; BASO ABS # 0.01 K/uL (0-0.2); COMPLETE YES; DOHLE BODIES 1+; EOS % 10.2 %; IG% 0.4 %; LYMPH % 4.3 %; LYMPH ABS # 0.24 K/uL (1.2-3.4); MONO % 17.8 %; NEUT % 67.1 %; PLT ESTIMATE DECREASED
[2016-07-18] MEDS ORDERED: TRAMADOL HCL 50 MG TAB PO PRN (16:45)
[2016-07-18] MEDS ORDERED: ACETAMINOPHEN 325 MG TAB PO PRN (17:00)
[2016-07-18] MEDS ORDERED: MAGNESIUM HYDROXIDE SUSP 30 ML UDC PO PRN (17:00)
[2016-07-18] MEDS ORDERED: POLYETHYLENE (MIRALAX) 17 GM PACK PO PRN (17:00)
--- NOTE | 2016-07-18 17:02 | History and Physical ---
History & Physical Date & Time of Service: Jul 18, 2016 at 16:50 Chief Complaint: Severe Pain From Plural Tube/Mesothelioma Primary Care Physician: Leny Rehman M.D. History of Present Illness Source: patient 60 y/o M with PMH of mesothelioma , prostate cancer, GERD here with c/o right sided chest pain near his pleural drain which started about 6 days ago. the pain is intermittent, 6/10 and worse on deep breathing , radiates to front of the chest or back . denies any SOB/palpitations or respiratory distress. His pleural drain was placed in March 2016 and drains it 1-2 times/week. He is currently receiving chemotherapy under the care of Dr. Yip and is scheduled for another session tomorrow. 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 Biopsy - 04/07/2016 2 status post completion of radiation therapy 05/24/2016 received 4000 cGy 3. Systemic chemotherapy Status: Chronic Surgical Problems: (1) History of decompression of ulnar nerve Status: Resolved (2) History of lumbosacral spine surgery Status: Resolved (3) History of prostatectomy Status: Resolved Family History Diabetes mellitus Gallbladder disease Social History Smoking Status: Never Smoker Marital Status: Occupational Status: employed Multi-Drug Resistant Organisms History of MDRO: No Allergies Coded Allergies: Adhesives (Verified Allergy, Intermediate, rash blisters, 07/18/16) Hydromorphone (Unverified Adverse Reaction, Severe, Severe N/V, 07/18/16) HIS FAMILY DOES NOT WANT HIM TO GET DILAUDID BECAUSE IT MAKES HIM VOMIT Home Medications Scheduled Cyanocobalamin (B-12 Compliance Injection), 1,000 MCG INJ UD Esomeprazole Magnesium (Nexium), 40 MG PO DAILY Fentanyl (Fentanyl), 75 MCG TD [id number] Folic Acid (Folvite), 1 MG PO DAILY Oxycodone Hcl (Oxycodone Hcl), 10 MG PO Q4H Polyethylene (Miralax), 17 GM PO DAILY Sennosides-Docusate Sodium (Docusate Sodium/Senna), 2 TAB PO DAILY Scheduled PRN Ibuprofen Tab (Advil), 200-600 MG PO Q4H PRN for Pain Promethazine Hcl (Phenergan), 25 MG PO Q6H PRN for Nausea Review of Systems Constitutional: No chills, No fever Eyes: No worsening of vision ENT: No hearing loss Respiratory: No cough, No shortness of breath, No sputum Cardiovascular: + chest pain (Right sided chest pain near pleural drain) Abdomen: No nausea, No pain, No vomiting Musculoskeletal: No joint pain Genitourinary - Male: No dysuria, No hematuria Physical Exam Vital Signs Date Time Temp Pulse Resp B/P Pulse Ox O2 Delivery O2 Flow Rate FiO2 07/18/16 14:39 94 21 101/72 92 Room Air 07/18/16 13:30 94 13 106/74 98 Room Air 07/18/16 13:02 95 07/18/16 12:01 93 16 96/66 98 Nasal Cannula 1.0 07/18/16 11:15 95 Nasal Cannula 2.0 07/18/16 11:14 87 Room Air 07/18/16 11:05 95 18 98/71 92 Room Air 07/18/16 09:47 104 21 99/69 90 Room Air 07/18/16 09:15 105 24 106/69 90 07/18/16 09:13 102 07/18/16 09:13 90 Room Air 07/18/16 08:59 36.8 155 19 87/68 93 Room Air General Appearance: WD/WN, no apparent distress Head: normocephalic Eyes: normal inspection ENT: normal ENT inspection, hearing grossly normal Neck: supple Respiratory/Chest: chest non-tender, lungs clear, no respiratory distress, + decreased breath sounds Cardiovascular: regular rate, rhythm Abdomen/GI: normal bowel sounds, non tender, soft Extremities/Musculoskelatal: no pedal edema Neurologic/Psych: alert, normal mood/affect, oriented x 3 Diagnostics Laboratory Results Results Past 24 Hours Test 07/18/16 11:00 Range/Units White Blood Count 5.61 4.8-10.8 K/uL Red Blood Count 2.87 4.7-6.1 M/uL Hemoglobin 9.0 14.0-18.0 g/dL Hematocrit 26.2 42-52 % Mean Corpuscular Volume 91.3 80-100 fL Mean Corpuscular Hemoglobin 31.4 25-34 pg Mean Corpuscular Hemoglobin Concent 34.4 32-36 g/dl Platelet Count 90 130-400 K/uL Mean Platelet Volume 9.2 7.4-10.4 fL Neutrophils (%) (Auto) 67.1 % Lymphocytes (%) (Auto) 4.3 % Monocytes (%) (Auto) 17.8 % Eosinophils (%) (Auto) 10.2 % Basophils (%) (Auto) 0.2 % Neutrophils # (Auto) 3.77 1.4-6.5 K/uL Lymphocytes # (Auto) 0.24 1.2-3.4 K/uL Monocytes # (Auto) 1.00 0.11-0.59 K/uL Eosinophils # (Auto) 0.57 0-0.5 K/uL Basophils # (Auto) 0.01 0-0.2 K/uL RDW Standard Deviation 49.9 36.4-46.3 fL RDW Coefficient of Variation 16.2 11.5-14.5 % Immature Granulocyte % (Auto) 0.4 % Immature Granulocyte # (Auto) 0.02 0.00-0.02 K/uL Dohle Bodies 1+ Platelet Estimate DECREASED Sodium Level 136 136-145 mmol/L Potassium Level 3.9 3.5-5.1 mmol/L Chloride Level 94 98-107 mmol/L Carbon Dioxide Level 34 21-32 mmol/L Anion Gap 8.0 3-11 mmol/L Blood Urea Nitrogen 12 7-18 mg/dl Creatinine 0.81 0.60-1.40 mg/dl Est Creatinine Clear Calc Drug Dose 91.5 ml/min Estimated GFR () 110.4 Estimated GFR (Non- 95.3 BUN/Creatinine Ratio 15.3 10-20 Random Glucose 101 70-99 mg/dl Calcium Level 8.7 8.5-10.1 mg/dl Total Bilirubin 0.5 0.2-1 mg/dl Direct Bilirubin 0.2 0-0.2 mg/dl Aspartate Amino Transf (AST/SGOT) 13 15-37 U/L Alanine Aminotransferase (ALT/SGPT) 16 12-78 U/L Alkaline Phosphatase 111 45-117 U/L Total Protein 6.6 6.4-8.2 gm/dl Albumin 2.4 3.4-5.0 gm/dl Diagnostic Radiology [~ rep ct add3]] CHEST 2 VIEWS ROUTINE CLINICAL HISTORY: Wheezing ileum. Hydropneumothorax. COMPARISON STUDY: 06/17/2016 FINDINGS: There is a left-sided A-Port catheter present. There is a right-sided pleural drain present. There is a persistent small loculated right-sided hydropneumothorax. There is persistent right-sided pleural thickening. There is mild interstitial thickening right greater than left. There is no lobar consolidation. There is minor blunting of the left lateral costophrenic angle.[ IMPRESSION: Slight interval decrease in the size of the loculated right-sided hydropneumothorax. There is a right-sided pleural drain. There is persistent right-sided pleural thickening. EKG Normal sinus rhythm Normal ECG When compared with ECG of 13-MAR-2016 13:36, Impression Assessment and Plan 60 y/o M with PMH of mesothelioma , prostate cancer, GERD here with c/o right sided chest pain near his pleural drain which started about 6 days ago. Right sided Hydropneumothorax with pain at the pleural drain site : - No signs of infection locally - CXR: Slight interval decrease in the size of the loculated right-sided hydropneumothorax. There is a right-sided pleural drain. There is persistent right-sided pleural thickening. - Pain control with fentanyl patch 100 mcg and tramadol 50 mg q6h as needed - Consult thoracic surgery for possible pleurodesis - Consult Oncology Anemia and thrombocytopenia: Hgb at 9, platelets at 90 likely sec to BMS - monitor DVT prophylaxis: SCDs DNR Level of Care Med/Surg Advanced Directives Existing Living Will: Yes Resuscitation Status DO NOT RESUSCITATE VTE Prophylaxis VTE Risk Assessment Done? Y/N: Yes Risk Level: Moderate Given or contraindicated: SCD's Note Total Time: Critical Care 30 - 74 minutes Reviewed: Pt Seen/Exam by Me, RN Notes, HO Notes, Prior Records, Labs, RAD History Resident Physician Supervision Note: I was present with Dr. Albarado during the history and exam. I discussed the case with the resident and agree with the findings and plan as documented in the note. Any exceptions or clarifications are listed here: 60 y/o M with PMH of mesothelioma , prostate cancer, GERD here with c/o right sided chest pain near his pleural drain which started about 6 days ago. Documented By: Kush Owen Constitutional: denies: chills EENTM: denies: tearing Respiratory: positive: short of breath Cardiovascular: denies chest pain Genitourinary: negative discharge Neurological/Psych: negative: anxiety Hematologic/Lymphatic: negative: anemia General Appearance: WD/WN Eye Exam: bilateral eye PERRL, bilateral eye normal inspection Neck: full range of motion Respiratory: decreased breath sounds (right side), other (right side pleural catheter in place) Cardiovascular: normal peripheral pulses, no gallop Gastrointestinal: soft Extremities: non-tender Neurologic/Psychiatric: alert Assessment/Plan 60 y/o M with PMH of mesothelioma , prostate cancer, GERD here with c/o right sided chest pain near his pleural drain which started about 6 days ago. Right sided Hydropneumothorax with pain at the pleural drain site : CXR: Slight interval decrease in the size of the loculated right-sided hydropneumothorax. There is a right-sided pleural drain. There is persistent right-sided pleural thickening. Pain control with fentanyl patch 100 mcg and tramadol 50 mg q6h as needed Consult thoracic surgery for possible pleurodesis Consult Oncology Anemia and thrombocytopenia: Hgb at 9, platelets at 90 likely sec to BMS continue to monitor DVT prophylaxis: SCDs DNR time spent 50 min
[2016-07-18 17:45] VITALS: BP 148/77; PULSE 53; TEMP 36.4; O2SAT 97; Ht 172.7 cm; Wt 75.0 kg
[2016-07-18] MEDS ORDERED: FENTANYL PATCH REMOVE & WASTE SCH (17:59)
[2016-07-18] MEDS ORDERED: FENTANYL 100 MCG/HR TDSY TD SCH (18:00)
[2016-07-18] MEDS: ONDANSETRON INJ 2 MG/ML 2 ML VIAL IV PRN (19:28)
[2016-07-18 23:21] VITALS: BP 107/71; PULSE 102; TEMP 36.8; O2SAT 91
[2016-07-19] MEDS ORDERED: FENTANYL PATCH REMOVE & WASTE SCH
[2016-07-19] MEDS ORDERED: FENTANYL 100 MCG/HR TDSY TD SCH
[2016-07-19] MEDS: IBUPROFEN 200 MG TAB PO PRN (00:47)
[2016-07-19] MEDS: CHECK FENTANYL PATCH PLACEMENT SCH ×3 (00:56→16:13)
[2016-07-19 07:17] VITALS: BP 101/66; PULSE 83; TEMP 36.5; O2SAT 90
[2016-07-19 08:03] LABS: HEMATOCRIT 25.5 % (42-52); MEAN CELL VOLUME 91.7 fL (80-100); MEAN CORPUSCULAR HEMOGLOBIN 31.7 pg (25-34); MEAN CORPUSCULAR HGB CONC 34.5 g/dl (32-36); RED BLOOD COUNT 2.78 M/uL (4.7-6.1); WHITE BLOOD COUNT 5.02 K/uL (4.8-10.8)
[2016-07-19 08:33] LABS: BUN/CREATININE RATIO 15.1 (10-20); CALCIUM 8.6 mg/dl (8.5-10.1); CREATININE 0.74 mg/dl (0.60-1.40); POTASSIUM 3.4 mmol/L (3.5-5.1)
[2016-07-19] MEDS ORDERED: LIDOCAINE HCL 1% 20 ML VIAL ONE (08:53)
--- NOTE | 2016-07-19 08:55 | Progress Note ---
Subjective Date of Service: Jul 19, 2016. Subjective Pt evaluation today including: conversation w/ patient, conversation w/ family , physical exam, chart review, lab review, review of studies, conversation w/ information consultant, review of inpatient medication list Pain is better controlled in the right chest wall, no difficulty breathing, 4 days no bowel movement, Problem List Medical Problems: (1) Lumbago Status: Chronic (2) Mesothelioma Status: Chronic (3) Pleuritic chest pain Status: Acute (4) Reflux Esophagitis Status: Chronic (5) Right lower lobe lung mass Status: Acute Review of Systems Constitutional: + fatigue, + weakness, No chills, No fever, No problem reported , No sweats, No weight loss Eyes: No diplopia, No discharge, No eye pain, No redness, No worsening of vision ENT: No dental problems, No hearing loss, No nasal symptoms, No sore throat, No tinnitus, No trouble swallowing, No unusual epistaxis Respiratory: No cough, No dyspnea at rest, No dyspnea on exertion, No hemoptysis, No shortness of breath, No sputum, No wheezing Cardiac: + chest pain, No PND, No claudication, No edema, No orthopnea, No palpitations Abdomen: No constipation, No diarrhea, No nausea, No pain, No vomiting Musculoskeletal: No calf pain, No joint pain, No muscle pain, No swelling Male : No dysuria, No hematuria, No incontinence, No nocturia more than once/ night, No slowing stream, No urinary frequency Neurologic: No balance problems, No memory loss, No numbness/tingling, No paralysis, No vertigo, No weakness Psychiatric: No anhedonism, No anxiety, No depression symptoms, No insomnia, No substance abuse Heme: No abnormal bleeding/bruising, No clotting problems, No night sweats, No swollen lymph nodes Endo: No excessive thirst, No excessive urination, No fatigue Skin: No bleeding, No color change, No itch, No new/changing skin lesions, No rash Objective Vital Signs Date Time Temp Pulse Resp B/P Pulse Ox O2 Delivery O2 Flow Rate FiO2 07/19/16 07:17 36.5 83 16 101/66 90 Room Air 07/19/16 00:10 Room Air 07/18/16 23:21 36.8 102 16 107/71 91 Room Air 07/18/16 17:45 36.4 53 16 148/77 97 Room Air 07/18/16 17:17 112/65 07/18/16 17:15 102 16 91/62 99 Room Air 07/18/16 17:02 96 07/18/16 14:39 94 21 101/72 92 Room Air 07/18/16 13:30 94 13 106/74 98 Room Air 07/18/16 13:02 95 07/18/16 12:01 93 16 96/66 98 Nasal Cannula 1.0 07/18/16 11:15 95 Nasal Cannula 2.0 07/18/16 11:14 87 Room Air 07/18/16 11:05 95 18 98/71 92 Room Air 07/18/16 09:47 104 21 99/69 90 Room Air 07/18/16 09:15 105 24 106/69 90 07/18/16 09:13 102 07/18/16 09:13 90 Room Air 07/18/16 08:59 36.8 155 19 87/68 93 Room Air Physical Exam General Appearance: WD/WN, no apparent distress, + thin, + pertinent finding ( chronic ill-looking, frail) Eyes: normal inspection, PERRL, EOMI, sclerae normal ENT: normal ENT inspection, hearing grossly normal, pharynx normal Neck: supple, no adenopathy, thyroid normal, no JVD, no carotid bruits, trachea midline Respiratory/Chest: chest non-tender, normal breath sounds, no respiratory distress, no accessory muscle use, + decreased breath sounds, + pertinent finding (right chest has chest tube in place) Cardiovascular: regular rate, rhythm, no edema, no gallop, no JVD, no murmur Abdomen: normal bowel sounds, non tender, soft, no organomegaly, no pulsatile mass Extremities: normal range of motion, non-tender, normal inspection, no pedal edema, no calf tenderness, normal capillary refill, pelvis stable Neurologic/Psychiatric: [employer] sports [employer] II-XII nml as tested, no motor/sensory deficits, alert, normal mood/affect, oriented x 3 Skin: normal color, warm/dry, no rash Lymphatic: no adenopathy Laboratory Results Last 24 Hours Test 07/18/16 11:00 07/19/16 07:13 White Blood Count 5.61 K/uL 5.02 K/uL Red Blood Count 2.87 M/uL 2.78 M/uL Hemoglobin 9.0 g/dL 8.8 g/dL Hematocrit 26.2 % 25.5 % Mean Corpuscular Volume 91.3 fL 91.7 fL Mean Corpuscular Hemoglobin 31.4 pg 31.7 pg Mean Corpuscular Hemoglobin Concent 34.4 g/dl 34.5 g/dl Platelet Count 90 K/uL Mean Platelet Volume 9.2 fL Neutrophils (%) (Auto) 67.1 % Lymphocytes (%) (Auto) 4.3 % Monocytes (%) (Auto) 17.8 % Eosinophils (%) (Auto) 10.2 % Basophils (%) (Auto) 0.2 % Neutrophils # (Auto) 3.77 K/uL Lymphocytes # (Auto) 0.24 K/uL Monocytes # (Auto) 1.00 K/uL Eosinophils # (Auto) 0.57 K/uL Basophils # (Auto) 0.01 K/uL RDW Standard Deviation 49.9 fL 50.0 fL RDW Coefficient of Variation 16.2 % 16.4 % Immature Granulocyte % (Auto) 0.4 % Immature Granulocyte # (Auto) 0.02 K/uL Dohle Bodies 1+ Platelet Estimate DECREASED Sodium Level 136 mmol/L 137 mmol/L Potassium Level 3.9 mmol/L 3.4 mmol/L Chloride Level 94 mmol/L 96 mmol/L Carbon Dioxide Level 34 mmol/L 31 mmol/L Anion Gap 8.0 mmol/L 10.0 mmol/L Blood Urea Nitrogen 12 mg/dl 11 mg/dl Creatinine 0.81 mg/dl 0.74 mg/dl Est Creatinine Clear Calc Drug Dose 91.5 ml/min 100.1 ml/min Estimated GFR () 110.4 114.6 Estimated GFR (Non- 95.3 98.9 BUN/Creatinine Ratio 15.3 15.1 Random Glucose 101 mg/dl 83 mg/dl Calcium Level 8.7 mg/dl 8.6 mg/dl Total Bilirubin 0.5 mg/dl Direct Bilirubin 0.2 mg/dl Aspartate Amino Transf (AST/SGOT) 13 U/L Alanine Aminotransferase (ALT/SGPT) 16 U/L Alkaline Phosphatase 111 U/L Total Protein 6.6 gm/dl Albumin 2.4 gm/dl Assessment and Plan 60 y/o M with PMH of mesothelioma , prostate cancer, GERD admitted on 2016 with c/o right sided chest pain near his pleural drain which started about 6 days prior to admission, stable Right sided Hydropneumothorax with pain at the pleural drain site : Stable Sarcomatoid carcinoma of lung, had Biopsy - 04/07/2016, status post completion of radiation therapy 05/24/2016 received 4000 cGy, Systemic chemotherapy CXR: Slight interval decrease in the size of the loculated right-sided hydropneumothorax. There is a right-sided pleural drain. There is persistent right-sided pleural thickening. His pleural drain was placed in March 2016 and drains it 1-2 times/week. He is currently receiving chemotherapy under the care of Dr. Yip and is scheduled for another session today Right-sided chest pain from hydropneumothorax M chest tube control with fentanyl patch 100 mcg and tramadol 50 mg q6h as needed Anemia and thrombocytopenia: Hgb at 9, platelets at 90 likely sec to BMS continue to monitor Constipation continue Dulcolax and will give 1 dose of MOM today plan: As above Consulted thoracic surgery for possible pleurodesis Consulted Oncology DVT prophylaxis: SCDs DNR time spent 31 min include talked with the confirm he is do not resuscitation Continued [facility] stay due to: multiple IV medications needed Discharge planning: home
[2016-07-19 09:00] LABS: MEAN PLATELET VOLUME 9.9 fL (7.4-10.4); PLATELET COUNT 98 K/uL (130-400)
[2016-07-19] MEDS ORDERED: LIDOCAINE HCL 1% 20 ML VIAL INFIL ONE (09:00)
[2016-07-19] MEDS: PANTOprazole SOD 40 MG TAB PO SCH (09:05)
[2016-07-19] MEDS: DOCUSATE SODIUM/SENNA 50/8.6MG TAB PO SCH (09:06)
[2016-07-19] MEDS: ONDANSETRON INJ 2 MG/ML 2 ML VIAL IV PRN ×2 (09:11→18:45)
[2016-07-19] MEDS ORDERED: NURSING VERBAL MED ORDER ONE (09:45)
--- NOTE | 2016-07-19 09:56 | DIAGNOSTIC IMAGING REPORT ---
CT SCAN OF THE CHEST WITHOUT IV CONTRAST CLINICAL HISTORY: Hydropneumothorax. COMPARISON STUDY: Chest radiographs dated . Chest CT scan dated 03/13/2016. TECHNIQUE: CT scan of the thorax was performed from the thoracic inlet to the upper abdomen. Images are reviewed in the axial, sagittal, and coronal planes. IV contrast was not administered for this examination as per the referring clinician. CT DOSE: 297.24 mGy.cm FINDINGS: Thyroid: Atrophic. Thoracic aorta: There is mild atherosclerotic calcification of the thoracic aorta, which is normal in caliber and demonstrates standard 3-vessel arch anatomy. A left subclavian central venous infusion port is in place. Heart: The heart is normal in size and without pericardial effusion. The coronary arteries are densely calcified. Lungs and pleural spaces: Emphysema is again noted. A pleural drain is present the right lung base entering laterally between the fifth and sixth ribs. There are small bilateral pleural effusions with associated atelectasis. Hyperdense material and marked pleural thickening is seen at the right lung base and suggests previous pleurodesis. There is a small right-sided pneumothorax. No left pneumothorax is seen. There has been significant progression of multifocal pulmonary metastatic disease as compared to 03/13/2016. There are numerous (greater than 30) discrete pulmonary lesions identified. A mass lesion in the right lower lobe is difficult to delineate secondary to surrounding pleural effusion but measures at least 3.5 x 6.5 cm as seen on image #149 (previously measuring at least 5.5 cm). A right middle lobe lesion on image #172 measures 3.6 x 2.5 cm, and a right anterior pleural based lesion seen on image #136 extends in the mediastinum and measures 3.0 x 3.6 cm. Both of these lesions are new from previous. Additional pleural-based lesions are seen throughout the right lung and at the right apex. Secretions are present within the right mainstem bronchus. The trachea appears clear. Mediastinum: There are scattered subcentimeter mediastinal lymph nodes. These are not pathologically enlarged by size criteria. Mayr: Not well assessed without IV contrast. Axillae: There is no axillary lymphadenopathy. Upper abdomen: There is a 3.7 cm low-attenuation lesion in the dome of the liver identified on image #216. The appearance is highly concerning for metastatic disease. A 12 mm cyst is noted adjacent the IVC on image #259. The partially imaged kidneys demonstrate cortical atrophy. No adrenal lesion is identified. Skeletal structures: The skeletal structures are osteopenic. There are numerous osteolytic rib lesions. A large destructive lesion is seen posteriorly in the sixth rib with pathologic fracture. Numerous additional rib lesions are seen. There are additional healed right-sided rib fractures. IMPRESSION: 1. There is a pleural drain at the right lung base with evidence of previous right-sided pleurodesis. 2. Small right-sided hydropneumothorax as detailed above. 3. Small left pleural effusion. 4. A dominant mass lesion is again seen in the right lower lobe. 5. There is been marked progression of multifocal bilateral pulmonary and pleural-based metastatic disease as compared to 03/13/2016. 6. There are numerous osteolytic rib lesions identified with interval pathologic fractures on the right. These are new from 03/13/2016. 7. There is a 3.7 cm low-attenuation lesion seen in the dome of the liver consistent with hepatic metastatic disease. 8. There is no airspace consolidation typical for pneumonia. 9. Emphysema. 10. Additional findings as above. Electronically signed by: Doyle Ramires M.D. 07/19/2016 9:54 AM Dictated Date/Time: 07/19/2016 9:38 AM
[2016-07-19] MEDS ORDERED: PNEUMOCOCCAL POLYSACCHARIDES 25 MCG/0.5 ML VIAL/SYR IM. ONE (14:00)
[2016-07-19] MEDS ORDERED: PNEUMOCOCCAL ADMINISTRATION CHARGE ONE (14:00)
--- NOTE | 2016-07-19 15:45 | Oncology Consultation ---
Oncology/Heme Consultation Date of Consultation: Jul 19, 2016. Attending Physician: Stanislav Weber MD, PhD Reason for Consultation: Malignant mesothelioma History of Present Illness Mr. Johnston has been treated in our clinic for ligament mesothelioma with klamath- based therapy and pemetrexed on 2 occasions. He has had progressive refractory right chest discomfort. He has had up until today a Pleurx catheter that was just removed today. As I understand it really was not draining very much recently. He denies any fever or chills. Denies any nausea or vomiting. He denies worsening shortness of breath Past Medical/Surgical History Medical Problems: (1) Lumbago Status: Chronic (2) Mesothelioma Status: Chronic (3) Pleuritic chest pain Status: Acute (4) Reflux Esophagitis Status: Chronic (5) Right lower lobe lung mass Status: Acute Family History Diabetes mellitus Gallbladder disease Social History Smoking Status: Never Smoker Marital Status: Housing Status: lives with family Occupation Status: employed Allergies Coded Allergies: Adhesives (Verified Allergy, Intermediate, rash blisters, 07/18/16) Hydromorphone (Verified Adverse Reaction, Intermediate, Severe N/V, 07/19/16 ) HIS FAMILY DOES NOT WANT HIM TO GET DILAUDID BECAUSE IT MAKES HIM VOMIT Home Medications Scheduled Cyanocobalamin (B-12 Compliance Injection), 1,000 MCG INJ UD Esomeprazole Magnesium (Nexium), 40 MG PO DAILY Fentanyl (Fentanyl), 75 MCG TD CQ72HR Folic Acid (Folvite), 1 MG PO DAILY Oxycodone Hcl (Oxycodone Hcl), 10 MG PO Q4H Polyethylene (Miralax), 17 GM PO DAILY Sennosides-Docusate Sodium (Docusate Sodium/Senna), 2 TAB PO DAILY Scheduled PRN Ibuprofen Tab (Advil), 200-600 MG PO Q4H PRN for Pain Promethazine Hcl (Phenergan), 25 MG PO Q6H PRN for Nausea Current Inpatient Medications Current Inpatient Medications Medications (Trade) Dose Ordered Sig/Chao Route Start Time Stop Time Status Last Admin Dose Admin Miscellaneous Information (Check Fentanyl Patch Placement) 1 ea QS N/A 07/19/16 00:00 08/18/16 00:00 07/19/16 09:06 1 EA Tramadol HCl (Ultram Tab) 50 mg Q6H PRN PO 07/18/16 16:45 08/17/16 16:44 07/18/16 17:27 50 MG Acetaminophen (Tylenol Tab) 650 mg Q4H PRN PO 07/18/16 17:00 08/17/16 16:59 Magnesium Hydroxide (Milk Of Magnesia Susp) 30 ml Q6H PRN PO 07/18/16 17:00 08/17/16 16:59 07/19/16 09:05 30 ML Polyethylene (Miralax Powder Packet) 17 gm DAILY PRN PO 07/18/16 17:00 08/17/16 16:59 Ondansetron HCl (Zofran Inj) 4 mg Q6H PRN IV 07/18/16 17:00 08/17/16 16:59 07/19/16 09:11 4 MG Folic Acid (Folvite Tab) 1 mg DAILY PO 07/19/16 09:00 08/18/16 08:59 07/19/16 09:05 1 MG Ibuprofen (Advil Tab) 400 mg Q4H PRN PO 07/18/16 17:00 08/17/16 16:59 07/19/16 00:47 400 MG Senna/Docusate Sodium (Senokot S Tab) 2 tab DAILY PO 07/19/16 09:00 08/18/16 08:59 07/19/16 09:06 2 TAB Pantoprazole Sodium (Protonix Tab) 40 mg QAM PO 07/19/16 09:00 08/18/16 08:59 07/19/16 09:05 40 MG Ketorolac Tromethamine (Toradol Inj) 30 mg Q6H PRN IV 07/18/16 21:15 07/23/16 21:14 Heparin Sodium (Porcine) (Heparin 100 Unit/ml 5ml Flush) 5 ml PRN PRN IV 07/18/16 22:30 08/17/16 22:29 07/19/16 05:24 5 ML Fentanyl (Duragesic Patch) 100 mcg Q72H TD 07/19/16 00:00 08/02/16 00:00 07/19/16 00:56 100 MCG Miscellaneous (Fentanyl Patch Remove & Waste) 1 ea Q3D N/A 07/19/16 00:00 08/18/16 00:00 07/19/16 00:00 1 EA Review of Systems Constitutional: Negative for weight loss, night sweats, or fever Eyes: Negative for event change of vision ENT: Negative for epistaxis, nasal discharge, sore throat, or deafness Cardiovascular: Negative for palpitations, dizziness, diaphoresis Respiratory: Negative for new shortness of breath,hemoptysis, or purulent cough. He has had right lateral chest wall discomfort that has been rather significant. Gastrointestinal: Negative for diarrhea, hematemesis, melena, nausea, vomiting , or dyspepsia Integumentary (skin): Negative for rash or jaundice discoloration Genitourinary: Negative for urinary frequency, hematuria, or dysuria Neurological: Negative for weakness, seizure activity, headache, or dizziness Lymphatic/Hematologic: Negative for petechiae, bleeding or new adenopathy Musculoskeletal: Negative for new joint or back pain Allergic/Immunologic: Negative for unusual rash or pruritis. Physical Exam Date Time Temp Pulse Resp B/P Pulse Ox O2 Delivery O2 Flow Rate FiO2 07/19/16 07:30 Room Air 07/19/16 07:17 36.5 83 16 101/66 90 Room Air 07/19/16 00:10 Room Air 07/18/16 23:21 36.8 102 16 107/71 91 Room Air 07/18/16 17:45 36.4 53 16 148/77 97 Room Air 07/18/16 17:17 112/65 07/18/16 17:15 102 16 91/62 99 Room Air 07/18/16 17:02 96 Constitutional: vitals are stable. Eyes: Eyes are KENIA EOMI without conjuctival erythema or icterus. ENT: External examination was negative for masses. Neck: Negative for masses or palpable thyromegaly Respiratory: Lung sounds were decreased on the right. There is a bandage over the right chest wall. Cardiovascular: Heart was RRR without significant murmur, gallops aoe rubs Gastrointestinal: No palpable hepatic or splenomegaly. The abdomen was soft with normal bowel sounds. Lymphatic system: there was no palpable peripheral lymphadenopathy Musculoskeletal System: The musculoskeletal system seemed concordant with age. Skin: The skin was negative for jaundice. Neurologic exam: The exam was negative for any focal findings. Deep tendon reflexes were equal and symmetrical. Psychiatric exam: Was essentially negative with normal mood and effect. Extremities: Negative for edema or erythema Laboratory Results Last 24 Hours Test 07/19/16 07:13 White Blood Count 5.02 K/uL Red Blood Count 2.78 M/uL Hemoglobin 8.8 g/dL Hematocrit 25.5 % Mean Corpuscular Volume 91.7 fL Mean Corpuscular Hemoglobin 31.7 pg Mean Corpuscular Hemoglobin Concent 34.5 g/dl RDW Standard Deviation 50.0 fL RDW Coefficient of Variation 16.4 % Platelet Count 98 K/uL Mean Platelet Volume 9.9 fL Sodium Level 137 mmol/L Potassium Level 3.4 mmol/L Chloride Level 96 mmol/L Carbon Dioxide Level 31 mmol/L Anion Gap 10.0 mmol/L Blood Urea Nitrogen 11 mg/dl Creatinine 0.74 mg/dl Est Creatinine Clear Calc Drug Dose 100.1 ml/min Estimated GFR () 114.6 Estimated GFR (Non- 98.9 BUN/Creatinine Ratio 15.1 Random Glucose 83 mg/dl Calcium Level 8.6 mg/dl Assessment & Plan Ligament mesothelioma is now status post 2 cycles of chemotherapy. He has mild cytopenias that are residual from the last chemotherapy. Review of his CT scans that were just done of his chest do demonstrate areas that do appear to have progressive disease compared to April scan. His fentanyl patch has been increased in dose. He was to have therapy this week but this will be delayed until next week. He'll have a follow-up at that point. I have informed he and his of my concerns that his disease has progressed. We will discuss amongst ourselves in clinic but another treatment alternative could be radiation therapy to the right lung is for palliation as his therapy goes forward.
[2016-07-19 16:02] VITALS: BP 97/63; PULSE 104; TEMP 36.5; O2SAT 86
--- NOTE | 2016-07-19 16:13 | OPERATIVE REPORT ---
DATE OF OPERATION: 07/19/2016 PROCEDURE: Removal of right PleurX catheter. SURGEON: Dr. Thompson. PRODUCTION LINE WELDER: Azeem Payne PA-C. ANESTHESIA: Local. SPECIFICS OF PROCEDURE: At the patient's bedside, the PleurX catheter was inspected. It is not draining very much. He has a history of malignant mesothelioma. We prepped him with alcohol and anesthetized with a long 25-gauge needle. I then used a pair of scissors and forceps to go along the catheter until we got to the fibrous cuff which unfortunately was probably 4-5 cm away from the skin insertion site. Finally, dissected this out and removed the catheter without difficulty. We will check a chest x-ray on him tomorrow. I am much happier with him as he had less pain. I attest to the content of the Intraoperative Record and any orders documented therein. Any exceptio ns are noted below.
--- NOTE | 2016-07-19 16:27 | SURGICAL CONSULTATION ---
DATE OF CONSULTATION: 07/19/2016 REASON FOR CONSULTATION: Management of indwelling right pleural catheter for malignant pleural effusion. HISTORY OF PRESENT ILLNESS: Troy Johnston is an unfortunate 60-year-old male, who was diagnosed with a malignant mesothelioma 4 months ago. He was diagnosed via thoracoscopy with biopsy and talc pleurodesis at [facility]. He had a PleurX placed at that time and has been drained a large amount of fluid. The patient has an unknown amount of pain and about 5 days prior to admission his drained his PleurX catheter, which had been draining very little and he had a tremendous amount of pain, which did not virginie over a several-day period. He was admitted for pain control and I was asked to evaluate him. I actually spoke to him about him with Dr. Tuan Castellano. Dr. Castellano had arranged for the patient to see me in the office, however, he had such pain he had to be admitted. I had a long talk with the patient, his , his son and his daughter at the bedside this morning. They have a good understanding of mesothelioma. They understand what this diagnosis entails and expected course from this terminal malignancy. He is having a great deal of pain, although he states here in the hospital it has gotten a bit better. I was asked to comment on this tube and to help manage it. PAST MEDICAL HISTORY: 1. Malignant pleural mesothelioma, right hemithorax. 2. Reflux esophagitis. 3. History of prostate carcinoma. PAST SURGICAL HISTORY: 1. Right thoracoscopy. 2. History of lumbosacral spine surgery. 3. Prostatectomy. 4. Decompression of right ulnar nerve. MEDICATIONS: 1. Oxycodone. 2. MiraLax. 3. Senokot. 4. Folic acid. 5. Nexium. 6. Fentanyl patch. 7. B12 injections. ALLERGIES: 1. Adhesions causing an irritation. 2. Hydromorphone (nausea and vomiting). 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 He has never smoked cigarettes. He lives with his , who is extremely supportive. He was employed up until the time of this diagnosis. FAMILY MEDICAL HISTORY: Significant for cholelithiasis and diabetes mellitus (adult onset). REVIEW OF SYSTEMS: The patient has been complaining of pleuritic-type chest pain. He denies fevers, chills. He states he has been eating. He is moving his bowels. He has no difficulty with urination. He has had no skin breakdown except for the irritation around the tube from the tape. He denies any visual or auditory symptoms. He has had no neurologic symptoms. PHYSICAL EXAMINATION: GENERAL: This is a 5 feet 8 inch, 165 pound male who wears glasses. HEENT: His extraocular movements are intact. His pupils are equal, round and reactive. Sclerae anicteric. His teeth are in good repair. His tongue is midline. He has no oral mucosal lesions. NECK: Supple. I detect no supraclavicular or cervical lymphadenopathy, neck vein distention or thyromegaly. He has decreased breath sounds on the right. His PleurX site is clean. He has a well-healed right elbow incision at the site of his ulnar nerve transposition. He has regular rate and rhythm of his heart. ABDOMEN: Soft, nontender. No evidence of abdominal aortic aneurysm or ascites. EXTREMITIES: He has no peripheral edema. He has excellent peripheral pulses and no joint effusions. NEUROLOGIC: He is awake, alert and oriented, no focal deficits. ASSESSMENT AND PLAN: Indwelling right PleurX catheter with pain. I had a long discussion with the patient's family and explained that pain is a part of having mesothelioma and his pain may not be due to his PleurX catheter at all. Having said that, the fact it is really not draining is a reason to pull it anyway. I am going to check a CT scan on him without contrast this morning and make a determination about whether to proceed with removal or not. He is currently on room air and certainly he has no respiratory problems.
[2016-07-19] MEDS: KETOROLAC TROMETHAMINE 30 MG/ML VIAL IV PRN (19:32)
[2016-07-19 19:39] VITALS: O2SAT 94
[2016-07-19 23:38] VITALS: BP 112/70; PULSE 84; TEMP 36.5; O2SAT 93
[2016-07-20] MEDS: CHECK FENTANYL PATCH PLACEMENT SCH ×2 (00:07→08:12)
[2016-07-20] MEDS: KETOROLAC TROMETHAMINE 30 MG/ML VIAL IV PRN (06:29)
--- NOTE | 2016-07-20 07:19 | DIAGNOSTIC IMAGING REPORT ---
CHEST ONE VIEW PORTABLE CLINICAL HISTORY: pleural effusion catheter position COMPARISON STUDY: 07/18/2016 FINDINGS: Unchanging right basilar focal hydropneumothorax. Pulmonary vasculature remains prominent bilaterally. Central catheter remains this. Vena cava. Trace blunting left lateral costophrenic angles unchanged. IMPRESSION: Unchanged study radiographically. Small stable hydropneumothorax right base. Electronically signed by: Luigi Sesay M.D. 07/20/2016 7:18 AM Dictated Date/Time: 07/20/2016 7:17 AM
[2016-07-20 07:29] VITALS: BP 94/57; PULSE 106; TEMP 36.7; O2SAT 90
[2016-07-20] MEDS: ONDANSETRON INJ 2 MG/ML 2 ML VIAL IV PRN (07:38)
[2016-07-20 07:47] VITALS: BP 94/57; PULSE 106; TEMP 36.7; O2SAT 90
[2016-07-20 08:24] LABS: BUN/CREATININE RATIO 17.1 (10-20); CALCIUM 8.9 mg/dl (8.5-10.1); CREATININE 0.95 mg/dl (0.60-1.40); MAGNESIUM 1.7 mg/dl (1.8-2.4); POTASSIUM 3.6 mmol/L (3.5-5.1)
[2016-07-20] MEDS ORDERED: DRGTP100 TD (08:51)
--- NOTE | 2016-07-20 08:52 | SURGERY PROGRESS NOTE ---
DATE: 07/20/2016 DATE: 07/20/2016. Mr. Johnston was seen today. His x-ray is about the same. He had some drainage from his PleurX site after we pulled the catheter but then really none overnight. He is being discharged today. We will be glad to see him back in the office in 3 weeks with a chest x-ray. I have told the patient and his this morning that I will be glad to be of any service if they need it. Dr. Castellano will call if necessary.
--- NOTE | 2016-07-20 08:54 | Discharge Instructions ---
Discharge Instructions Admission Reason for Admission: Hydropneumothorax Discharge Discharge Diagnosis / Problem: Right sided Hydropneumothorax with pain Discharge Goals Goal(s): Decrease discomfort, Improve function, Increase independence, Improve disease control, Improve nutritional status, Learn about illness, Diagnostic testing, Therapeutic intervention, Prevent Disease Progression, Specific goals Activity Recommendations Activity Limitations: resume your previous activity Lifting Limitations: none Exercise/Sports Limitations: none May Resume Sexual Activity: when tolerated Shower/Bathe: no limitations Driving or Machine Use: no limitations . 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 Owens as instructed you need to follow up with Dr. Pedro as instructed - you need to follow up with your primary care physician in 1 week, - take medication as instructed, never overdose or any misuse, or take with alcohol, because misuse of medicine may cause organ damage or , call your primary care physician if have questions of medicaitons. - call your primary care physician OR go to local emergency room if has any fever/chill, chest pain, shortness of breathing, nausea/vomiting/abdominal pain , facial droop/slurry speech/local weakness, or if has any questions. - fall precaution - diet as instructed - you need to follow up with your subspecialists - you should understand that it is important to follow up the above instruction , and "not following the above instruction" may cause delayed or missed care of your medical conditions which may cause permanent organ damage and even . Current Hospital Diet Patient's current hospital diet: Regular Diet Discharge Diet Recommended Diet: Regular Diet Pending Studies Studies pending at discharge: no Medical Emergencies . Who to Call and When: Medical Emergencies: If at any time you feel your situation is an emergency, please call 911 immediately. . Non-Emergent Contact Non-Emergency issues call your: Primary Care Provider, Oncologist, Surgeon . Past History Medical & Surgical History: (1) Hydropneumothorax (2) Mesothelioma (3) Sarcomatoid carcinoma of lung . "Provider Documentation" section prepared by Stanislav Weber. VTE Core Measure Inpt VTE Proph given/why not?: SCD's
[2016-07-20] MEDS: DOCUSATE SODIUM/SENNA 50/8.6MG TAB PO SCH (09:00)
[2016-07-20] MEDS: PANTOprazole SOD 40 MG TAB PO SCH (09:00)
[2016-07-20] MEDS: IBUPROFEN 200 MG TAB PO PRN (10:32)
[2016-07-20 10:34] VITALS: BP 94/57; PULSE 106; TEMP 36.7; O2SAT 90
--- NOTE | 2016-07-20 13:16 | Discharge Summary ---
Discharge Summary Admission Date: Jul 18, 2016 at 16:49 Discharge Date: Jul 20, 2016 Discharge Disposition: Home Principal Diagnosis: Right sided Hydropneumothorax Problems/Secondary Diagnoses: Sarcomatoid carcinoma of lung, (1) Lumbago Status: Chronic (2) Mesothelioma Status: Chronic (3) Reflux Esophagitis Status: Chronic Procedures: Removal of pleural chest tube Consultations: Oncologist and chest surgeon Medication Reconciliation New Medications: Fentanyl (Fentanyl) 100 Mcg Tdsy 100 MCG TD Q72H for 12 Days, #4 Continued Medications: Cyanocobalamin (B-12 Compliance Injection) 1,000 Mcg/Ml Kit 1000 MCG INJ UD GETS EVERY 90 DAYS Esomeprazole Magnesium (Nexium) 40 Mg Capcr 40 MG PO DAILY, CAP Folic Acid (Folvite) 1 Mg Tab 1 MG PO DAILY Ibuprofen Tab (Advil) 200 Mg Tab 200-600 MG PO Q4H PRN for Pain, TAB Oxycodone Hcl (Oxycodone Hcl) 5 Mg Cap 10 MG PO Q4H Polyethylene (Miralax) 17 Gm Pow 17 GM PO DAILY Promethazine Hcl (Phenergan) 25 Mg Tab 25 MG PO Q6H PRN for Nausea, #12 TAB Sennosides-Docusate Sodium (Docusate Sodium/Senna) 1 Tab Tab 2 TAB PO DAILY Discontinued Medications: Fentanyl (Fentanyl) 75 Mcg/Hr Dis 75 MCG TD CQ72HR Discharge Exam Out of bed to chair, smiling conversational, pain in the right chest fair control Review of Systems: Constitutional: No chills, No fatigue, No fever, No problem reported, No sweats, No weakness, No weight loss Eyes: No diplopia, No discharge, No eye pain, No problem reported, No redness, No worsening of vision ENT: No dental problems, No hearing loss, No nasal symptoms, No problem reported, No sore throat, No tinnitus, No trouble swallowing, No unusual epistaxis Respiratory: + cough, + dyspnea on exertion, + shortness of breath Cardiovascular: No PND, No chest pain, No claudication, No edema, No orthopnea, No palpitations, No problem reported Abdomen: No GI bleeding, No constipation, No diarrhea, No nausea, No pain, No problem reported, No vomiting Musculoskeletal: No calf pain, No joint pain, No muscle pain, No problem reported, No swelling Genitourinary - Male: No dysuria, No hematuria, No impotence, No lesions, No penile discharge, No problem reported, No urinary frequency, No urinary hesitancy, No urinary incontinence, No urinary retention, No urinary urgency Neurologic: No balance problems, No memory loss, No numbness/tingling, No paralysis, No problem reported, No vertigo, No weakness Psychiatric: No anhedonism, No anxiety, No depression symptoms, No insomnia , No problem reported, No substance abuse Endocrine: No excessive thirst, No excessive urination, No fatigue, No problem reported Integumentary: No bleeding, No color change, No itch, No new/changing skin lesions, No problem reported, No rash Physical Exam: General Appearance: no apparent distress, + cachetic, + thin, + pertinent finding (chronic ill-looking, out of bed to the chair) Eyes: normal inspection, PERRL, EOMI ENT: normal ENT inspection, hearing grossly normal, TMs normal Neck: supple, no adenopathy, thyroid normal Respiratory/Chest: chest non-tender, normal breath sounds, no respiratory distress, no accessory muscle use, + decreased breath sounds Cardiovascular: regular rate, rhythm, no edema, no gallop, no JVD Abdomen / GI: normal bowel sounds, non tender, soft, no organomegaly, no pulsatile mass Extremities: normal inspection, no calf tenderness, normal capillary refill Neurologic/Psychiatric: tire setter II-XII nml as tested, no motor/sensory deficits , alert, normal mood/affect, normal reflexes, oriented x 3 Skin: normal color, warm/dry, no rash Hospital Course 60 y/o M with PMH of mesothelioma , prostate cancer, GERD admitted on 2016 with c/o right sided chest pain near his pleural drain which started about 6 days prior to admission, stable Right sided Hydropneumothorax with pain at the pleural drain site upon admission Pleural fluid drainage tube removed by chest surgeon, repeated chest x-ray patient is stable Chest surgeon feels he can go home 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 There is a right-sided pleural drain. There is persistent right-sided pleural thickening. His pleural drain was placed in March 2016 and drains it 1-2 times/week. He is currently receiving chemotherapy under the care of Dr. Yip and is scheduled for another session today Right-sided chest pain from hydropneumothorax M chest tube control with fentanyl patch 100 mcg and tramadol 50 mg q6h as needed Anemia and thrombocytopenia: Hgb at 9 to 8.8 today minimal decreased, I told patient and to follow-up with PCP, platelets at 90 to 98 today, which is stable likely sec to BMS continue to monitor Magnesium 1.7, will replace Constipation continue Dulcolax and will give 1 dose of MOM today plan: As above Okay to discharge home with instruction in below Magnesium is low, mag oxide prescription was faxed to his pharmacy, has called to patient, he was notified DVT prophylaxis: SCDs DNR time spent 35 min include talked with the confirm he is do not resuscitation Instructions / Follow-Up you have Right sided Hydropneumothorax with pain at the pleural drain site : 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 Owens as instructed you need to follow up with Dr. Pedro as instructed - you need to follow up with your primary care physician in 1 week, - take medication as instructed, never overdose or any misuse, or take with alcohol, because misuse of medicine may cause organ damage or , call your primary care physician if have questions of medicaitons. - call your primary care physician OR go to local emergency room if has any fever/chill, chest pain, shortness of breathing, nausea/vomiting/abdominal pain , facial droop/slurry speech/local weakness, or if has any questions. - fall precaution - diet as instructed - you need to follow up with your subspecialists - you should understand that it is important to follow up the above instruction , and "not following the above instruction" may cause delayed or missed care of your medical conditions which may cause permanent organ damage and even . Total Time Spent: Greater than 30 minutes This includes examination of the patient, discharge planning, medication reconciliation, and communication with other providers. Discharge Instructions Please refer to the electronic Patient Visit Report (Discharge Instructions) for additional information. Additional Copies To Leny Rehman M.D.; Tuan Castellano MD; Mariann Pedro, DO
[2016-07-20] MEDS ORDERED: MGNO400 PO (13:18)
[2016-07-27] MEDS ORDERED: DRGTP100 TOP (10:55)
[2016-07-27] MEDS ORDERED: ATV/1 PO (10:55)
[2016-08-07] MEDS ORDERED: DRGTP50 TD (11:49)
[2016-08-07] MEDS ORDERED: ATRINS INH (11:49)
[2016-08-07] MEDS ORDERED: NCY50 PO (11:49)
[2016-08-07] MEDS ORDERED: GUAI1TAB68 PO (11:49)
[2016-08-07] MEDS ORDERED: PRD10 PO (11:49)
[2016-08-07] MEDS ORDERED: PRD20 PO (11:49)
[2016-08-07] MEDS ORDERED: NRN100 PO (11:49)
[2016-08-07] MEDS ORDERED: XPNINS1255 INH (11:49)
[2016-08-07] MEDS ORDERED: DRGTP100 TD (11:49)
[2016-08-07] MEDS ORDERED: DRGTP12 TD (11:49)
[2016-08-07] MEDS ORDERED: LDDP5 TD (12:00)
[2016-08-07] MEDS ORDERED: LEVO1TAB35 PO (12:00)
== END 2016-07-20 11:07 | disposition home health service (06) | DRG 187 ==
LOC: ENRESERVTM → ENRESERVDT → C.EDB 08:56 → C.MSN 16:49
PROVIDERS: ADMIT Family Medicine; ATTEND Hospitalist
PROC: 0WP9X0Z Removal of Drainage Device from Right Pleural Cavity, External Approach (ICD-10-PCS; principal; 2016-07-19)
DX: J94.8 Other specified pleural conditions (principal); C78.7 Secondary malignant neoplasm of liver and intrahepatic bile duct; J91.0 Malignant pleural effusion; C45.7 Mesothelioma of other sites; Z85.46 Personal history of malignant neoplasm of prostate; Z83.3 Family history of diabetes mellitus; K21.9 Gastro-esophageal reflux disease without esophagitis; Z92.3 Personal history of irradiation; D64.9 Anemia, unspecified; M54.5 Low back pain; D69.6 Thrombocytopenia, unspecified; Z66 Do not resuscitate; K59.00 Constipation, unspecified

== ENCOUNTER 2016-07-30 13:59 | Inpatient (IN) | payer BC ==
[~2016-07-30] VITALS: Ht 172.7 cm; Wt 73.3 kg
[~2016-07-30 13:59] MED LIST changes: +ATV/1 PO; +CYAN1KIT3 INJ; +DRGTP100 TD; +DRGTP100 TOP; -DRGTP50 TD; +MGNO400 PO; +MRLP17X PO; -vitamin B12 INJ
[2016-07-30 15:05] LABS: BASO % 0.2 %; BASO ABS # 0.03 K/uL (0-0.2); EOS % 4.3 %; HEMATOCRIT 28.5 % (42-52); IG% 0.5 %; LYMPH % 6.9 %; LYMPH ABS # 1.26 K/uL (1.2-3.4); MEAN CELL VOLUME 94.1 fL (80-100); MEAN CORPUSCULAR HEMOGLOBIN 32.3 pg (25-34); MEAN CORPUSCULAR HGB CONC 34.4 g/dl (32-36); MEAN PLATELET VOLUME 9.9 fL (7.4-10.4); MONO % 10.1 %; PLATELET COUNT 239 K/uL (130-400); RED BLOOD COUNT 3.03 M/uL (4.7-6.1); WHITE BLOOD COUNT 18.22 K/uL (4.8-10.8)
[2016-07-30] MEDS ORDERED: LEVALBUTEROL 1.25MG/3ML NEB INH STA (15:05)
[2016-07-30] MEDS ORDERED: FENTANYL CITRATE INJ 50 MCG/1 ML 2 ML VIAL IV STA ×2 (15:05→18:35)
[2016-07-30 15:26] LABS: ANISOCYTOSIS PRESENT; COMPLETE YES
[2016-07-30 15:29] LABS: MANUAL MICROSCOPIC REQUIRED? NO; REVIEW REQ? NO; URINE APPEARANCE CLEAR (CLEAR); URINE BILIRUBIN NEG (NEG); URINE COLOR DK YELLOW; URINE EPITHELIAL CELL AUTO >30 /lpf (0-5); URINE NITRITE NEG (NEG); URINE SPECIFIC GRAVITY 1.021 (1.000-1.030); UROBILINOGEN NEG (NEG)
[2016-07-30 15:32] LABS: ALB/GLOB RATIO 0.4 (0.9-2); ALKALINE PHOSPHATASE 115 U/L (45-117); ALT/SGPT 23 U/L (12-78); BLOOD UREA NITROGEN 18 mg/dl (7-18); CALCIUM 8.7 mg/dl (8.5-10.1); CARBON DIOXIDE 29 mmol/L (21-32); CHLORIDE 94 mmol/L (98-107); CREATININE 0.92 mg/dl (0.60-1.40); GLUCOSE 105 mg/dl (70-99); SODIUM 133 mmol/L (136-145)
--- NOTE | 2016-07-30 15:32 | DIAGNOSTIC IMAGING REPORT ---
CHEST ONE VIEW PORTABLE CLINICAL HISTORY: EVALUATE RESPIRATORY DISTRESS. DYSPNEA COMPARISON STUDY: 07/20/2016 FINDINGS: Congestive heart failure superimposed upon pre-existing chronic change. Interval development of small bilateral pleural effusions. Central catheter in the superior vena cava the juncture with the right atrium. IMPRESSION: Congestive failure superimposed upon chronic and postoperative change Electronically signed by: Luigi Sesay M.D. 07/30/2016 3:30 PM Dictated Date/Time: 07/30/2016 3:30 PM
[2016-07-30 15:43] VITALS: PULSE 112; O2SAT 95
[2016-07-30] MEDS ORDERED: VANCOMYCIN INJ 1,500 MG in SODIUM CHLORIDE 0.9% 500ML 500 ML IV STA (16:18)
[2016-07-30] MEDS ORDERED: LEVAQUIN 750MG / 150ML D5W IV STA (16:18)
[2016-07-30] MEDS ORDERED: PIPERACILLIN/TAZOBACTAM 4.5 GM/100ML D5W IV STA (16:18)
[2016-07-30 16:40] LABS: POTASSIUM 4.2 mmol/L (3.5-5.1)
[2016-07-30 16:42] LABS: INR 1.2 (0.9-1.1); PARTIAL THROMBOPLASTIN RATIO 1.1; PROTHROMBIN TIME (PATIENT) 12.8 SECONDS (9.0-12.0)
[2016-07-30] MEDS ORDERED: OPTIRAY 320 IV PRN (16:45)
[2016-07-30] MEDS ORDERED: SODIUM CHLORIDE 0.9% 1000ML 1,000 ML IV STA (17:23)
[2016-07-30] MEDS ORDERED: SODIUM CHLORIDE 0.9% 500ML 500 ML IV STA (17:23)
--- NOTE | 2016-07-30 17:51 | DIAGNOSTIC IMAGING REPORT ---
CHEST CTA for PULMONARY ARTERIES CT DOSE: 303.86 mGy.cm HISTORY: Chest pain metastatic disease TECHNIQUE: Multiaxial CT images of the chest were performed following the intravenous administration of contrast to evaluate the pulmonary arteries. Maximal intensity projection images were also obtained. COMPARISON STUDY: 07/19/2016 FINDINGS: The right basilar drainage catheter has been removed. Small residual hydropneumothorax. Somewhat progressive right pleural effusion. Some of progressive left pleural effusion. Masslike changes in the lung bases with multiple chest wall lesions. These lesions involve associated soft tissue components. Pathologic fracture with at least one posterior rib. This has been present previously and is not an acute finding. Multiple parenchymal nodules are again noted. It is similar to perhaps slightly progressive. Anterior mediastinal mass extending to the anterior chest wall and right parasternal region is similar. Thoracic aorta is unremarkable with minimal atherosclerotic change. There is calcification of the coronary arterial vasculature. Note is made of a transverse fracture of the mid sternum. IMPRESSION: 1. Moderately progressive bilateral pleural effusions. 2. Slight decrease in volume of right-sided hydropneumothorax. 3. Slightly progressive metastatic disease involving both hemithoraces, chest wall regions bilaterally, as well as anterior right parasternal lesion. 4. Pathologic fracture of a least one posterior rib and the right which is unchanged. 5. Slightly progressive pulmonary nodularity. 6. The study is considered negative for major pulmonary embolus Electronically signed by: Liugi Sesay M.D. 07/30/2016 5:49 PM Dictated Date/Time: 07/30/2016 5:43 PM
[2016-07-30] MEDS ORDERED: VANCOMYCIN INJ 1,000 MG in SODIUM CHLORIDE 0.9% 250ML 250 ML IV STA (18:47)
[2016-07-30] MEDS ORDERED: ACETAMINOPHEN 325 MG TAB PO PRN (19:00)
[2016-07-30] MEDS ORDERED: ZOLPIDEM TARTRATE 5 MG TAB PO PRN (19:00)
[2016-07-30] MEDS ORDERED: PROMETHAZINE HCL INJ 12.5 MG in SODIUM CHLORIDE 0.9% 50ML 50 ML IV PRN (19:00)
[2016-07-30] MEDS ORDERED: PROMETHAZINE HCL 25 MG TAB PO PRN (19:00)
[2016-07-30] MEDS ORDERED: ALUMINUM/MAGNESIUM/SIMETH (MAALOX MAX) 30 ML UDC PO PRN (19:00)
[2016-07-30] MEDS ORDERED: OXYCODONE HCL IR 5 MG TAB (IMMEDIATE RELEASE) PO PRN ×2 (19:00→23:00)
[2016-07-30] MEDS ORDERED: ONDANSETRON INJ 2 MG/ML 2 ML VIAL IV PRN (19:00)
[2016-07-30] MEDS ORDERED: DiphenhydrAMINE HCL 50 MG/ML VIAL IV PRN (19:00)
[2016-07-30] MEDS ORDERED: MAGNESIUM HYDROXIDE SUSP 30 ML UDC PO PRN (19:00)
[2016-07-30] MEDS ORDERED: LORAZEPAM 2 MG/ML 1 ML VIAL IV PRN (19:00)
[2016-07-30 20:00] VITALS: Ht 172.7 cm; Wt 73.3 kg
--- NOTE | 2016-07-30 20:48 | EMERGENCY ROOM VISIT NOTE ---
History Report prepared by Cindiibe: Jacque Azar Under the Supervision of: Dr. Clif Almazan M.D. First contact with patient: 14:53 Chief Complaint: SHORTNESS OF BREATH Stated Complaint: SHORTNESS OF BREATH Nursing Triage Summary: Patient arrived via ALS with complains of SOB from home. EMS arrived and O2 sats were in 80's, ems placed 4L O2 and increased to 97% NC. Patient has PMH of mesothelioma. Had pleurx drain removed last week. Patient is having ongoing rib pain on right side, describes as "tight" feeling. EMS noticed that old pain patch that was on right ribcage area that fell off on way to ER. History of Present Illness The patient is a 60 year old male who presents to the Emergency Room with complaints of worsening shortness of breath for the past 1 week. He was brought to the ED via ALS from home and is accompanied by his . His Oxygen saturation in the field was in the 80s, so EMS placed him on 4 Liters of Oxygen , which provided good relief. The patient has a history of mesothelioma. He recent had a "Pleurx" drain removed, approximately 1 week ago, by Dr. Thompson of [facility] [place] [facility]. His states the drain was removed because he was having increasing pain, and the drain had been in place for approximately "3 months". The patient currently complains of feeling increasingly short of breath and states he has been experiencing back pain and right sided rib pain, but his states "he always complains about this". He last had Oxycodone around 0930 this morning. His also states his heart rate has been elevated and she noticed his legs were swollen this morning. She notes "he also seems to be "totally out of it". The patient denies LOC, headache, fevers, chills, diaphoresis, visual changes, neck pain, chest pain, nausea, vomiting, abdominal pain, melena, hematochezia, urinary symptoms, numbness, weakness, lymphadenopathy, rash, or other complaints. Source of History: patient, spouse/significant other () Onset: 1 week SPECIAL SERVICES DIRECT[employer] Position: chest Timing: worsening Modifying Factors (Relieving): oxygen Associated Symptoms: + back pain, + fatigue, + weakness Review of Systems See HPI for pertinent positives and negatives. A total of ten systems were reviewed and were otherwise negative. 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 Surgical Problems: (1) H/O lumbar discectomy (2) History of decompression of ulnar nerve (3) History of lumbosacral spine surgery (4) History of prostatectomy Family History Diabetes mellitus Gallbladder disease Social History Smoking Status: Former Smoker Alcohol Use: occasionally Drug Use: none Marital Status: Housing Status: lives with family Occupation Status: retired Current/Historical Medications Scheduled Cyanocobalamin (B-12 Compliance Injection), 1,000 MCG INJ UD Esomeprazole Magnesium (Nexium), 40 MG PO DAILY Fentanyl (Fentanyl), 100 MCG TD Q72H Folic Acid (Folvite), 1 MG PO DAILY Lorazepam (Ativan), 1 MG PO HS Magnesium Oxide (Magnesium-Oxide), 400 MG PO Q12 Oxycodone Hcl (Oxycodone Hcl), 10 MG PO Q4H Polyethylene (Miralax), 17 GM PO DAILY Sennosides-Docusate Sodium (Docusate Sodium/Senna), 2 TAB PO DAILY Scheduled PRN Ibuprofen Tab (Advil), 200-600 MG PO Q4H PRN for Pain Promethazine Hcl (Phenergan), 25 MG PO Q6H PRN for Nausea Allergies Coded Allergies: Adhesives (Verified Allergy, Intermediate, rash blisters, 07/30/16) Hydromorphone (Verified Adverse Reaction, Intermediate, Severe N/V, ) HIS FAMILY DOES NOT WANT HIM TO GET DILAUDID BECAUSE IT MAKES HIM VOMIT Physical Exam Vital Signs Date Time Temp Pulse Resp B/P Pulse Ox O2 Delivery O2 Flow Rate FiO2 07/30/16 18:36 112 20 93/60 94 Nasal Cannula 4.0 07/30/16 17:02 117 18 102/66 97 Nasal Cannula 4.0 07/30/16 15:43 112 20 95 Nasal Cannula 4.0 07/30/16 15:30 109 20 114/73 99 Nasal Cannula 4.0 07/30/16 14:56 99 Nasal Cannula 4.0 07/30/16 14:23 95 Nasal Cannula 4.0 07/30/16 14:12 95 Nasal Cannula 4.0 07/30/16 14:12 95 Nasal Cannula 4.0 07/30/16 14:12 37.0 116 22 101/68 85 Room Air Physical Exam GENERAL: Awake, alert, well-appearing, in no distress HENT: Normocephalic, atraumatic. Oropharynx unremarkable. EYES: Normal conjunctiva. Sclera non-icteric. NECK: Supple. No nuchal rigidity. FROM. No JVD. RESPIRATORY: Clear to auscultation. CARDIAC: Regular rate, normal rhythm. Extremities warm and well perfused. Pulses equal. ABDOMEN: Soft, non-distended. No tenderness to palpation. No rebound or guarding. No masses. RECTAL: Deferred. MUSCULOSKELETAL: Some right posterior axillary line rib tenderness. The back is symmetrical on inspection without obvious abnormality. There is no CVA tenderness to palpation. No joint edema. LOWER EXTREMITIES: Calves are equal size bilaterally and non-tender. 1+ edema on the right. No discoloration. NEURO: Normal sensorium. No sensory or motor deficits noted. SKIN: No rash or jaundice noted. Medical Decision & Procedures ER Provider Diagnostic Interpretation: This X-Ray was reviewed and interpreted by myself and the radiologist. CHEST ONE VIEW PORTABLE CLINICAL HISTORY: EVALUATE RESPIRATORY DISTRESS. DYSPNEA COMPARISON STUDY: 07/20/2016 FINDINGS: Congestive heart failure superimposed upon pre-existing chronic change. Interval development of small bilateral pleural effusions. Central catheter in the superior vena cava the juncture with the right atrium. IMPRESSION: Congestive failure superimposed upon chronic and postoperative change Electronically signed by: Luigi Sesay M.D. 07/30/2016 3:[address] scan was reviewed and interpreted by the radiologist and reviewed by myself. CHEST CTA for PULMONARY ARTERIES CT DOSE: 303.86 mGy.cm HISTORY: Chest pain metastatic disease TECHNIQUE: Multiaxial CT images of the chest were performed following the intravenous administration of contrast to evaluate the pulmonary arteries. Maximal intensity projection images were also obtained. COMPARISON STUDY: 07/19/2016 FINDINGS: The right basilar drainage catheter has been removed. Small residual hydropneumothorax. Somewhat progressive right pleural effusion. Some of progressive left pleural effusion. Masslike changes in the lung bases with multiple chest wall lesions. These lesions involve associated soft tissue components. Pathologic fracture with at least one posterior rib. This has been present previously and is not an acute finding. Multiple parenchymal nodules are again noted. It is similar to perhaps slightly progressive. Anterior mediastinal mass extending to the anterior chest wall and right parasternal region is similar. Thoracic aorta is unremarkable with minimal atherosclerotic change. There is calcification of the coronary arterial vasculature. Note is made of a transverse fracture of the mid sternum. IMPRESSION: 1. Moderately progressive bilateral pleural effusions. 2. Slight decrease in volume of right-sided hydropneumothorax. 3. Slightly progressive metastatic disease involving both hemithoraces, chest wall regions bilaterally, as well as anterior right parasternal lesion. 4. Pathologic fracture of a least one posterior rib and the right which is unchanged. 5. Slightly progressive pulmonary nodularity. 6. The study is considered negative for major pulmonary embolus Electronically signed by: Luigi Sesay M.D. 07/30/2016 5:49 PM Laboratory Results 07/30/16 14:26 Red Blood Count 3.03, Mean Corpuscular Volume 94.1, Mean Corpuscular Hemoglobin 32.3, Mean Corpuscular Hemoglobin Concent 34.4, Mean Platelet Volume 9.9, Neutrophils (%) (Auto) 78.0, Lymphocytes (%) (Auto) 6.9, Monocytes (%) (Auto) 10.1, Eosinophils (%) (Auto) 4.3, Basophils (%) (Auto) 0.2, Neutrophils # (Auto ) 14.20, Lymphocytes # (Auto) 1.26, Monocytes # (Auto) 1.84, Eosinophils # (Auto ) 0.79, Basophils # (Auto) 0.03 07/30/16 14:26 07/30/16 16:11 Test 07/30/16 14:26 07/30/16 14:57 07/30/16 15:15 07/30/16 16:06 White Blood Count 18.22 K/uL (4.8-10.8) Red Blood Count 3.03 M/uL (4.7-6.1) Hemoglobin 9.8 g/dL (14.0-18.0) Hematocrit 28.5 % (42-52) Mean Corpuscular Volume 94.1 fL (80-100) Mean Corpuscular Hemoglobin 32.3 pg (25-34) Mean Corpuscular Hemoglobin Concent 34.4 g/dl (32-36) Platelet Count 239 K/uL (130-400) Mean Platelet Volume 9.9 fL (7.4-10.4) Neutrophils (%) (Auto) 78.0 % Lymphocytes (%) (Auto) 6.9 % Monocytes (%) (Auto) 10.1 % Eosinophils (%) (Auto) 4.3 % Basophils (%) (Auto) 0.2 % Neutrophils # (Auto) 14.20 K/uL (1.4-6.5) Lymphocytes # (Auto) 1.26 K/uL (1.2-3.4) Monocytes # (Auto) 1.84 K/uL (0.11-0.59) Eosinophils # (Auto) 0.79 K/uL (0-0.5) Basophils # (Auto) 0.03 K/uL (0-0.2) RDW Standard Deviation 68.4 fL (36.4-46.3) RDW Coefficient of Variation 20.6 % (11.5-14.5) Immature Granulocyte % (Auto) 0.5 % Immature Granulocyte # (Auto) 0.10 K/uL (0.00-0.02) Anisocytosis PRESENT Anion Gap 10.0 mmol/L (3-11) Est Creatinine Clear Calc Drug Dose 80.5 ml/min Estimated GFR () 102.9 Estimated GFR (Non- 88.8 BUN/Creatinine Ratio 19.0 (10-20) Calcium Level 8.7 mg/dl (8.5-10.1) Total Bilirubin 0.6 mg/dl (0.2-1) Alanine Aminotransferase (ALT/SGPT) 23 U/L (12-78) Alkaline Phosphatase 115 U/L (45-117) Creatine Kinase MB 1.8 ng/ml (0.5-3.6) Creatine Kinase MB Ratio (0-3.0) Troponin I 0.026 ng/ml (0-0.045) Pro-B-Type Natriuretic Peptide 931 pg/ml (0-900) Total Protein 7.2 gm/dl (6.4-8.2) Albumin 2.2 gm/dl (3.4-5.0) Globulin 5.0 gm/dl (2.5-4.0) Albumin/Globulin Ratio 0.4 (0.9-2) Influenza Type A Antigen Neg for Influ A (NEG) Influenza Type B Antigen Neg for Influ B (NEG) Urine Color DK YELLOW Urine Appearance CLEAR (CLEAR) Urine pH 5.0 (4.5-7.5) Urine Specific Alexis 1.021 (1.000-1.030) Urine Protein TRACE (NEG) Urine Glucose (UA) NEG (NEG) Urine Ketones TRACE (NEG) Urine Occult Blood NEG (NEG) Urine Nitrite NEG (NEG) Urine Bilirubin NEG (NEG) Urine Urobilinogen NEG (NEG) Urine Leukocyte Esterase NEG (NEG) Urine WBC (Auto) 1-5 /hpf (0-5) Urine RBC (Auto) 0-4 /hpf (0-4) Urine Hyaline Casts (Auto) 1-5 /lpf (0-5) Urine Epithelial Cells (Auto) >30 /lpf (0-5) Urine Bacteria (Auto) NEG (NEG) Bedside Lactic Acid Venous 3.62 mmol/L (0.90-1.70) Test 07/30/16 16:11 Prothrombin Time 12.8 SECONDS (9.0-12.0) Prothromb Time International Ratio 1.2 (0.9-1.1) Activated Partial Thromboplast Time 27.5 SECONDS (21.0-31.0) Partial Thromboplastin Ratio 1.1 Aspartate Amino Transf (AST/SGOT) 19 U/L (15-37) Total Creatine Kinase 177 U/L (39-308) Laboratory results reviewed by me Medications Administered Medications (Trade) Dose Ordered Sig/Chao Route Start Time Stop Time Status Last Admin Dose Admin Fentanyl Citrate (Fentanyl Inj) 50 mcg NOW STAT IV 07/30/16 15:05 07/30/16 15:07 DC 07/30/16 15:29 50 MCG Levalbuterol (Xopenex 1.25MG/ 3ML Neb) 1.25 mg NOW STAT INH 07/30/16 15:05 07/30/16 15:07 DC 07/30/16 15:05 1.25 MG Piperacillin Sod/ Tazobactam Sod 4.5 gm 4.5 gm NOW STAT IV 07/30/16 16:18 07/30/16 16:22 DC 07/30/16 17:00 4.5 GM Vancomycin HCl/ Sodium Chloride (Vancomycin Inj/ Nss 500ml) 530 ml @ 200 mls/hr ONE STAT IV 07/30/16 16:18 07/30/16 18:56 DC 07/30/16 17:45 200 MLS/HR Levofloxacin 750 mg 750 mg NOW STAT IV 07/30/16 16:18 07/30/16 16:22 DC 07/30/16 17:45 750 MG Sodium Chloride 1,000 ml @ 125 mls/hr Q8H STAT IV 07/30/16 17:23 07/31/16 01:22 07/30/16 18:49 125 MLS/HR Sodium Chloride (Nss 500ml) 500 ml @ 999 mls/hr Q31M STAT IV 07/30/16 17:23 07/30/16 17:53 DC 07/30/16 18:04 999 MLS/HR Fentanyl Citrate (Fentanyl Inj) 50 mcg NOW STAT IV 07/30/16 18:35 07/30/16 18:37 DC 07/30/16 18:49 50 MCG ECG Indication: SOB/dyspnea Rate (beats per minute): 111 Rhythm: sinus tachycardia Findings: no acute ischemic change, no ectopy ED Course 1459: The patient was evaluated in room A2. A complete history and physical exam was performed. 1505: Levalbuterol 1.25 mg INH, Fentanyl Citrate 50 mcg IV. 1618: Levaquin 750 mg IV, Vancomycin HCl 1500 mg/NSS 530 ml @ 200 mls/hr IV, Zosyn 4.5 gm IV. 1723: NSS 500 ml @ 999 mls/hr IV, NSS 1000 ml @ 125 mls/hr IV. 1751: I discussed the patients case with Dr. Beckwith, [facility] Hospitalist. The patient will be further evaluated. 1800: I reevaluated the patient. I had a long talk with the patient and discussed my recommendation that he remain in the hospital for further evaluation and management. He and his verbalized complete understanding and agreement. Medical Decision Triage Nursing notes reviewed. The patient's presentation and history were concerning for hypoxia and history of mesothelioma. Etiologies such as pneumonia, COPD, reactive airway disease, CHF, cardiac ischemia, pulmonary embolism, pneumothorax, musculoskeletal, infections, gastrointestinal, as well as others were entertained. The patient was evaluated. He required supplemental oxygen. He was in some pain on the right side where his catheter was and was given fentanyl 50 mg IV. The patient was also given a Xopenex neb treatment. On reassessment he was doing somewhat better. The patient still had some slight confusion. CBC was concerning for significant leukocytosis of 18,000. He had mild anemia present. Urinalysis, cardiac troponin, chemistry panel, LFTs, and flu test was negative. The patient's BNP was borderline. Chest x-ray was concerning as above. Patient had an elevated lactate. This was concerning for infection from a pulmonary source. The patient was treated with Zosyn, Levaquin, and IV vancomycin. He was given gentle fluid hydration. The patient underwent CT imaging of the chest after antibiotics were administered. Findings as above. The patient had some increased pain in the area of the pathologic rib fractures and was given an additional dose of IV fentanyl. Due to the multiple issues the patient will need further evaluation and management in the hospital. I did discuss the case with Dr. Catrachito Beckwith of internal medicine. He evaluated the patient in the Emergency Room and admitted him for further treatment. The chart was completed utilizing [employer] Speech voice recognition software. Grammatical errors, random word insertions, pronoun errors, and incomplete sentences are an occasional consequence of this system due to software limitations, ambient noise, and hardware issues. Any formal questions or concerns about the content, text, or information contained within the body of this dictation should be directly addressed to the physician for clarification. Consults Time Called: 1746 Consulting Physician: Dr. Beckwith [facility] Hospitalist Returned Call: [phone] I discussed the patients case with Dr. Beckwith [facility] Hospitalist. The patient will be further evaluated. Impression Primary Impression: Hypoxia Additional Impressions: Sepsis Mesothelioma Fracture of rib of right side Critical Care I have personally spent greater than 30 minutes of critical care time in the direct management of this patient. This includes bedside care, interpretation of diagnostic studies, and testing, discussion with consultants, patient, and family members, and other required patient management activities. This 30 minutes is in excess of all separately billable procedures. Scribe Attestation The scribe's documentation has been prepared under my direction and personally reviewed by me in its entirety. I confirm that the note above accurately reflects all work, treatment, procedures, and medical decision making performed by me. Departure Information Dispostion Being Evaluated By Hospitalist Referrals Leny Rehman M.D. (PCP) Patient Instructions My [facility] Problem Qualifiers
[2016-07-30] MEDS ORDERED: LEVALBUTEROL/IPRATROPIUM NEB INH SCH (21:00)
[2016-07-30] MEDS ORDERED: FENTANYL 100 MCG/HR TDSY TD SCH ×3 (21:00→23:45)
[2016-07-30] MEDS: MoRPHine SULFATE 4 MG/ML 1 ML CARP\\VIAL IV PRN (21:03)
[2016-07-30] MEDS: LORAZEPAM 1 MG TAB PO SCH (21:03)
[2016-07-30] MEDS: ONDANSETRON INJ 2 MG/ML 2 ML VIAL IV PRN (21:03)
[2016-07-30] MEDS: SODIUM CHLORIDE 0.9% 1000ML 1,000 ML IV SCH (21:04)
[2016-07-30] MEDS ORDERED: PIPERACILL/TAZOBAC CONSULT ACTIVE PRN (21:15)
[2016-07-30] MEDS ORDERED: IPRATROPIUM BROMIDE NEB SOLN 0.02% 2.5 ML VIAL INH PRN (21:15)
[2016-07-30] MEDS ORDERED: LEVALBUTEROL 1.25MG/0.5ML NEB INH PRN (21:15)
--- NOTE | 2016-07-30 21:26 | History and Physical ---
History & Physical Date & Time of Service: Jul 30, 2016 at 21:13 Chief Complaint: Bilateral Pneumonia,Hypoxia Primary Care Physician: Leny Rehman M.D. History of Present Illness Source: patient, family, spouse The patient is a 60-year-old male, diagnosed with mesothelioma April 2016, and referred by Dr. Grossman for worsening chest pain. He was recently treated for a hydropneumothorax with chest tube, which was removed last week. He is presently undergoing chemotherapy. His pain is managed with fentanyl patch 100 g per hour, which he feels is effective, but his breakthrough medication of oxycodone 5 mg by mouth every 4-6 hours is not as effective. His oncologist is Dr. Bermudez, and and to this point has undergone 21 rounds of chemotherapy and 10 radiation treatments. He is scheduled to see a mesothelioma specialist in [place] on Sunday in 5 days. His son reports that he's had 3 previous rib fractures. He also reports that his father has become more disoriented over the past week, and at times becomes more difficult to deal with. The son also attributes this to worsening pain and worsening anxiety. 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 Biopsy - 04/07/2016 2 status post completion of radiation therapy 05/24/2016 received 4000 cGy 3. Systemic chemotherapy Status: Chronic Surgical Problems: (1) History of decompression of ulnar nerve Status: Resolved (2) History of lumbosacral spine surgery Status: Resolved (3) History of prostatectomy Status: Resolved Family History Diabetes mellitus Gallbladder disease Social History Smoking Status: Former Smoker Drug Use: none Marital Status: Occupational Status: retired Multi-Drug Resistant Organisms History of MDRO: Yes Type of MDRO: MRSA Allergies Coded Allergies: Adhesives (Verified Allergy, Intermediate, rash blisters, 07/30/16) Hydromorphone (Verified Adverse Reaction, Intermediate, Severe N/V, ) HIS FAMILY DOES NOT WANT HIM TO GET DILAUDID BECAUSE IT MAKES HIM VOMIT Home Medications Scheduled Cyanocobalamin (B-12 Compliance Injection), 1,000 MCG INJ UD Esomeprazole Magnesium (Nexium), 40 MG PO DAILY Fentanyl (Fentanyl), 100 MCG TD Q72H Folic Acid (Folvite), 1 MG PO DAILY Lorazepam (Ativan), 1 MG PO HS Magnesium Oxide (Magnesium-Oxide), 400 MG PO Q12 Oxycodone Hcl (Oxycodone Hcl), 10 MG PO Q4H Polyethylene (Miralax), 17 GM PO DAILY Sennosides-Docusate Sodium (Docusate Sodium/Senna), 2 TAB PO DAILY Scheduled PRN Ibuprofen Tab (Advil), 200-600 MG PO Q4H PRN for Pain Promethazine Hcl (Phenergan), 25 MG PO Q6H PRN for Nausea Review of Systems His and son both report that with patient's disorientation, whatever he says in communication, cannot be relied upon. His review of systems is otherwise as noted above, which has been supplemented by both his and son Physical Exam Vital Signs Date Time Temp Pulse Resp B/P Pulse Ox O2 Delivery O2 Flow Rate FiO2 07/30/16 19:51 115 18 97/57 100 07/30/16 18:36 112 20 93/60 94 Nasal Cannula 4.0 07/30/16 17:02 117 18 102/66 97 Nasal Cannula 4.0 07/30/16 15:43 112 20 95 Nasal Cannula 4.0 07/30/16 15:30 109 20 114/73 99 Nasal Cannula 4.0 07/30/16 14:56 99 Nasal Cannula 4.0 07/30/16 14:23 95 Nasal Cannula 4.0 07/30/16 14:12 95 Nasal Cannula 4.0 07/30/16 14:12 95 Nasal Cannula 4.0 07/30/16 14:12 37.0 116 22 101/68 85 Room Air The patient is awake, alert and oriented 3,, appears cachectic and debilitated , lying in bed and in mild acute respiratory distress. HEENT--PERRL, EOMI, mucous membranes and oropharynx dry. Neck--supple, no JVD or bruits, thyroid normal, trachea midline, no adenopathy. Heart--normal S1 and S2, no extra beats, no murmurs, rubs or gallops. Lungs--decreased breath sounds throughout, with mild respiratory distress and accessory muscle use. Abdomen--normal bowel sounds and soft, nontender and nondistended, no hernias or masses, no organomegaly. Extremities--no cyanosis, clubbing or edema. There are good distal pulses b/l. Dermatologic--normal skin turgor, normal color, warm and dry, no abnormal lymph nodes, no rash. Neurologic--cranial nerves II through XII grossly intact, motor and sensory examination normal. Psychiatric--appears anxious and disoriented. Diagnostics Laboratory Results Results Past 24 Hours Test 07/30/16 14:26 07/30/16 14:57 07/30/16 15:15 07/30/16 16:06 Range/Units White Blood Count 18.22 4.8-10.8 K/uL Red Blood Count 3.03 4.7-6.1 M/uL Hemoglobin 9.8 14.0-18.0 g/dL Hematocrit 28.5 42-52 % Mean Corpuscular Volume 94.1 80-100 fL Mean Corpuscular Hemoglobin 32.3 25-34 pg Mean Corpuscular Hemoglobin Concent 34.4 32-36 g/dl Platelet Count 239 130-400 K/uL Mean Platelet Volume 9.9 7.4-10.4 fL Neutrophils (%) (Auto) 78.0 % Lymphocytes (%) (Auto) 6.9 % Monocytes (%) (Auto) 10.1 % Eosinophils (%) (Auto) 4.3 % Basophils (%) (Auto) 0.2 % Neutrophils # (Auto) 14.20 1.4-6.5 K/uL Lymphocytes # (Auto) 1.26 1.2-3.4 K/uL Monocytes # (Auto) 1.84 0.11-0.59 K/uL Eosinophils # (Auto) 0.79 0-0.5 K/uL Basophils # (Auto) 0.03 0-0.2 K/uL RDW Standard Deviation 68.4 36.4-46.3 fL RDW Coefficient of Variation 20.6 11.5-14.5 % Immature Granulocyte % (Auto) 0.5 % Immature Granulocyte # (Auto) 0.10 0.00-0.02 K/uL Anisocytosis PRESENT Sodium Level 133 136-145 mmol/L Potassium Level 3.5-5.1 mmol/L Chloride Level 94 98-107 mmol/L Carbon Dioxide Level 29 21-32 mmol/L Anion Gap 10.0 3-11 mmol/L Blood Urea Nitrogen 18 7-18 mg/dl Creatinine 0.92 0.60-1.40 mg/dl Est Creatinine Clear Calc Drug Dose 80.5 ml/min Estimated GFR () 102.9 Estimated GFR (Non- 88.8 BUN/Creatinine Ratio 19.0 10-20 Random Glucose 105 70-99 mg/dl Calcium Level 8.7 8.5-10.1 mg/dl Total Bilirubin 0.6 0.2-1 mg/dl Aspartate Amino Transf (AST/SGOT) 15-37 U/L Alanine Aminotransferase (ALT/SGPT) 23 12-78 U/L Alkaline Phosphatase 115 45-117 U/L Total Creatine Kinase 39-308 U/L Creatine Kinase MB 1.8 0.5-3.6 ng/ml Creatine Kinase MB Ratio 0-3.0 Troponin I 0.026 0-0.045 ng/ml Pro-B-Type Natriuretic Peptide 931 0-900 pg/ml Total Protein 7.2 6.4-8.2 gm/dl Albumin 2.2 3.4-5.0 gm/dl Globulin 5.0 2.5-4.0 gm/dl Albumin/Globulin Ratio 0.4 0.9-2 Influenza Type A Antigen Neg for Influ A NEG Influenza Type B Antigen Neg for Influ B NEG Urine Color DK YELLOW Urine Appearance CLEAR CLEAR Urine pH 5.0 4.5-7.5 Urine Specific [place] 1.021 1.000-1.030 Urine Protein TRACE NEG Urine Glucose (UA) NEG NEG Urine Ketones TRACE NEG Urine Occult Blood NEG NEG Urine Nitrite NEG NEG Urine Bilirubin NEG NEG Urine Urobilinogen NEG NEG Urine Leukocyte Esterase NEG NEG Urine WBC (Auto) 1-5 0-5 /hpf Urine RBC (Auto) 0-4 0-4 /hpf Urine Hyaline Casts (Auto) 1-5 0-5 /lpf Urine Epithelial Cells (Auto) >30 0-5 /lpf Urine Bacteria (Auto) NEG NEG Bedside Lactic Acid Venous 3.62 0.90-1.70 mmol/L Test 07/30/16 16:11 Range/Units Prothrombin Time 12.8 9.0-12.0 SECONDS Prothromb Time International Ratio 1.2 0.9-1.1 Activated Partial Thromboplast Time 27.5 21.0-31.0 SECONDS Partial Thromboplastin Ratio 1.1 Potassium Level 4.2 3.5-5.1 mmol/L Aspartate Amino Transf (AST/SGOT) 19 15-37 U/L Total Creatine Kinase 177 39-308 U/L Microbiology Results 07/30/16 Blood Culture, Received Pending 07/30/16 Blood Culture, Received Pending Diagnostic Radiology Patient Name: ROXIE MONOEY Unit Number: [id number] Dictated: 07/30/161529 Transcribed: 07/30/16 1530 MS Printed Date/Time: [~ rep prt dt]/[~ rep prt tm] [~ rep ct labl] - [~ rep ct ivnm] [facility] [place] [address] Dictated: 07/30/161529 Transcribed: 07/30/16 1530 MS Printed Date/Time: [~ rep prt dt]/[~ rep prt tm] [~ rep ct labl] - [~ rep ct ivnm] [~ rep ct add3]] CHEST ONE VIEW PORTABLE CLINICAL HISTORY: EVALUATE RESPIRATORY DISTRESS. DYSPNEA COMPARISON STUDY: 07/20/2016 FINDINGS: Congestive heart failure superimposed upon pre-existing chronic change. Interval development of small bilateral pleural effusions. Central catheter in the superior vena cava the juncture with the right atrium. IMPRESSION: Congestive failure superimposed upon chronic and postoperative change Electronically signed by: Luigi Sesay M.D. 07/30/2016 3:30 PM Dictated Date/Time: 07/30/2016 3:30 PM The status of this report is Signed. Draft = Not yet reviewed or approved by Radiologist. Signed = Reviewed and approved by Radiologist. <AttendingPhy></AttendingPhy> <FamilyPhy>Leny Rehman M.D.</FamilyPhy> < PrimaryPhy>Leny Rehman M.D.</PrimaryPhy> <UnitNumber>[id number]</UnitNumber> < VisitNumber>[id number]</VisitNumber> <PatientName>ROXIE MOONEY</PatientName> < DateOfBirth>1955</DateOfBirth> <Location>[facility]</Location> <ServiceDate></ServiceDate> <MNE>ESINDI</MNE> <OrderingPhy>Clif Almazan MD</ OrderingPhy> <OrderingPhyMNE>f rep ord dr rodriguez</OrderingPhyMNE> <DictatingPhyMNE> f rep dict dr rodriguez</DictatingPhyMNE> <CCListMNE>f rep ct mne</CCListMNE> < AdmittingPhyMNE>f pt admit dr rodriguez</AdmittingPhyMNE> <AttendingPhyMNE>f pt attend dr rodriguez</AttendingPhyMNE> <ConsultingPhyMNE>f pt consult dr rodriguez</ConsultingPhyMNE> <FamilyPhyMNE>f pt fam dr rodriguez</FamilyPhyMNE> <OtherPhyMNE>f pt other dr rodriguez</OtherPhyMNE> < PrimaryPhyMNE>f pt prim care dr rodriguez</PrimaryPhyMNE> <ReferringPhyMNE>f pt referring dr rodriguez</ReferringPhyMNE> Patient Name: ROXIE MOONEY Unit Number: [id number] Dictated: 07/30/161742 Transcribed: 07/30/161742 MS Printed Date/Time: [~ rep prt dt]/[~ rep prt tm] [~ rep ct labl] - [~ rep ct ivnm] [facility] [place] [place] [address] Dictated: 07/30/161742 Transcribed: 07/30/161742 MS Printed Date/Time: [~ rep prt dt]/[~ rep prt tm] [~ rep ct labl] - [~ rep ct ivnm] [~ rep ct add3]] CHEST CTA for PULMONARY ARTERIES CT DOSE: 303.86 mGy.cm HISTORY: Chest pain metastatic disease TECHNIQUE: Multiaxial CT images of the chest were performed following the intravenous administration of contrast to evaluate the pulmonary arteries. Maximal intensity projection images were also obtained. COMPARISON STUDY: 07/19/2016 FINDINGS: The right basilar drainage catheter has been removed. Small residual hydropneumothorax. Somewhat progressive right pleural effusion. Some of progressive left pleural effusion. Masslike changes in the lung bases with multiple chest wall lesions. These lesions involve associated soft tissue components. Pathologic fracture with at least one posterior rib. This has been present previously and is not an acute finding. Multiple parenchymal nodules are again noted. It is similar to perhaps slightly progressive. Anterior mediastinal mass extending to the anterior chest wall and right parasternal region is similar. Thoracic aorta is unremarkable with minimal atherosclerotic change. There is calcification of the coronary arterial vasculature. Note is made of a transverse fracture of the mid sternum. IMPRESSION: 1. Moderately progressive bilateral pleural effusions. 2. Slight decrease in volume of right-sided hydropneumothorax. 3. Slightly progressive metastatic disease involving both hemithoraces, chest wall regions bilaterally, as well as anterior right parasternal lesion. 4. Pathologic fracture of a least one posterior rib and the right which is unchanged. 5. Slightly progressive pulmonary nodularity. 6. The study is considered negative for major pulmonary embolus Electronically signed by: Luigi Sesay M.D. 07/30/2016 5:49 PM Dictated Date/Time: 07/30/2016 5:43 PM The status of this report is Signed. Draft = Not yet reviewed or approved by Radiologist. Signed = Reviewed and approved by Radiologist. <AttendingPhy></AttendingPhy> <FamilyPhy>Leny Rehman M.D.</FamilyPhy> < PrimaryPhy>Leny Rehman M.D.</PrimaryPhy> <UnitNumber>[id number]</UnitNumber> < VisitNumber>[id number]</VisitNumber> <PatientName>ROXIE MOONEY</PatientName> < DateOfBirth>1955</DateOfBirth> <Location>[facility]</Location> <ServiceDate></ServiceDate> <MNE>ESINDI</MNE> <OrderingPhy>Clif Almazan MD</ OrderingPhy> <OrderingPhyMNE>f rep ord dr rodriguez</OrderingPhyMNE> <DictatingPhyMNE> f rep dict dr rodriguez</DictatingPhyMNE> <CCListMNE>f rep ct abbye</CCListMNE> < AdmittingPhyMNE>f pt admit dr rodriguez</AdmittingPhyMNE> <AttendingPhyMNE>f pt attend dr rodriguez</AttendingPhyMNE> <ConsultingPhyMNE>f pt consult dr rodriguez</ConsultingPhyMNE> <FamilyPhyMNE>f pt fam dr rodriguez</FamilyPhyMNE> <OtherPhyMNE>f pt other dr rodriguez</OtherPhyMNE> < PrimaryPhyMNE>f pt prim care dr rodriguez</PrimaryPhyMNE> <ReferringPhyMNE>f pt referring dr rodriguez</ReferringPhyMNE> EKG EKG shows sinus tachycardia at 111 bpm, with no acute ST-T changes. Impression Assessment and Plan Malignant mesothelioma with bilateral pneumonia, pleural effusions, pathologic rib fractures--the patient will be admitted to the oncology unit. We'll place on Solu-Medrol 60 mg IV every 6 hours, vancomycin IV per renal dosing, levofloxacin 500 mg IV every 24 hours, guaifenesin extended release 600 mg by mouth twice a day, and Xopenex with Atrovent nebulizer to use every 6 hours while awake and every 2 hours when necessary. Chronic pain syndrome with acute worsening secondary to pathologic rib fractures --we will increase from fentanyl patch 100 to 150g every 72 hours, and continue oxycodone at 10 mg by mouth increase from every 4 to every 2 hours when necessary. We'll also have available morphine sulfate 2-4 mg IV every 2 hours when necessary Anxiety increase lorazepam 1 mg by mouth at bedtime to 1 mg by mouth every 4 hours when necessary. GERD--change Nexium 40 mg by mouth daily to pantoprazole 40 mg by mouth daily. Constipation continue Senokot 2 tablets by mouth daily and MiraLAX 17 g by mouth daily. Consults palliative care regarding possible home hospice Level of Care Med/Surg Advanced Directives Existing Advance Directive: No Existing Living Will: No Existing Power of Gas Shovel Operator: No Resuscitation Status FULL RESUSCITATION VTE Prophylaxis VTE Risk Assessment Done? Y/N: Yes Risk Level: Moderate Given or contraindicated: SCD's Social Service Consult Cancer Patient Under [place]
[2016-07-30 21:28] VITALS: BP 136/78; PULSE 107; TEMP 36.5; O2SAT 96
[2016-07-30] MEDS ORDERED: VANCOMYCIN CONSULT ACTIVE PRN (21:30)
[2016-07-30] MEDS: METHYLPREDNISOLONE IV 60 MG in SYRINGE 0 ML IV SCH (21:43)
[2016-07-30] MEDS: MAGNESIUM OXIDE 400 MG TAB PO SCH (21:44)
[2016-07-30] MEDS: GUAIFENESIN 200 MG TAB PO SCH (21:44)
[2016-07-30] MEDS ORDERED: PIPERACILL/TAZOBAC IV 3.375 GM in DEXTROSE 5% 100ML 100 ML IV SCH (22:00)
[2016-07-30] MEDS ORDERED: LORAZEPAM 2 MG/ML 1 ML VIAL PO PRN (23:00)
[2016-07-30 23:28] VITALS: BP 98/63; PULSE 104; TEMP 36.3; O2SAT 94
[2016-07-30] MEDS: VANCOMYCIN INJ 1,200 MG in SODIUM CHLORIDE 0.9% 250ML 250 ML IV SCH (23:47)
[2016-07-30] MEDS: CHECK FENTANYL PATCH PLACEMENT SCH (23:47)
[2016-07-30] MEDS: PIPERACILL/TAZOBAC IV 3.375 GM in DEXTROSE 5% 100ML IV SCH (23:48)
[2016-07-31] VITALS (8 sets, daily range): BP systolic 97–112; BP diastolic 68–73; PULSE 92–115; TEMP 36.3–36.5; O2SAT 95–98
[2016-07-31] MEDS: FENTANYL 50 MCG/HR TDSY TD SCH (00:05)
[2016-07-31] MEDS: IPRATROPIUM BROMIDE NEB SOLN 0.02% 2.5 ML VIAL INH SCH ×4 (02:14→21:00)
[2016-07-31] MEDS: LEVALBUTEROL 1.25MG/0.5ML NEB INH SCH ×4 (02:14→21:00)
[2016-07-31] MEDS: LORAZEPAM INJ 1 MG in SYRINGE 0.5 ML IV PRN (02:18)
[2016-07-31] MEDS: METHYLPREDNISOLONE IV 60 MG in SYRINGE 0 ML IV SCH ×4 (03:45→20:34)
[2016-07-31] MEDS: SODIUM CHLORIDE 0.9% 1000ML 1,000 ML IV SCH ×3 (03:45→20:33)
[2016-07-31] MEDS: MAGNESIUM OXIDE 400 MG TAB PO SCH ×2 (08:34→20:34)
[2016-07-31] MEDS: PIPERACILL/TAZOBAC IV 3.375 GM in DEXTROSE 5% 100ML IV SCH ×3 (08:34→23:35)
[2016-07-31] MEDS: PANTOprazole SOD 40 MG TAB PO SCH (08:35)
[2016-07-31] MEDS: POLYETHYLENE (MIRALAX) 17 GM PACK PO SCH (08:35)
[2016-07-31] MEDS: DOCUSATE SODIUM/SENNA 50/8.6MG TAB PO SCH (08:35)
[2016-07-31] MEDS: GUAIFENESIN 200 MG TAB PO SCH ×2 (08:35→20:34)
[2016-07-31] MEDS: CHECK FENTANYL PATCH PLACEMENT SCH ×6 (08:44→23:35)
[2016-07-31] MEDS ORDERED: FENTANYL PATCH REMOVE & WASTE ONE (09:00)
[2016-07-31 09:02] LABS: BASO % 0.1 %; BASO ABS # 0.01 K/uL (0-0.2); EOS % 0.2 %; HEMATOCRIT 28.7 % (42-52); IG% 0.4 %; LYMPH ABS # 0.27 K/uL (1.2-3.4); MEAN CELL VOLUME 94.7 fL (80-100); MEAN CORPUSCULAR HEMOGLOBIN 31.7 pg (25-34); MEAN CORPUSCULAR HGB CONC 33.4 g/dl (32-36); MEAN PLATELET VOLUME 9.5 fL (7.4-10.4); MONO % 1.7 %; NEUT % 95.6 %; PLATELET COUNT 223 K/uL (130-400); RED BLOOD COUNT 3.03 M/uL (4.7-6.1); WHITE BLOOD COUNT 13.84 K/uL (4.8-10.8)
[2016-07-31 09:11] LABS: INR 1.2 (0.9-1.1); PROTHROMBIN TIME (PATIENT) 12.9 SECONDS (9.0-12.0)
[2016-07-31 09:24] LABS: ANISOCYTOSIS PRESENT; COMPLETE YES; OVALOCYTES 1+; POLYCHROMASIA 1+
[2016-07-31 09:39] LABS: BUN/CREATININE RATIO 18.1 (10-20); CALCIUM 8.3 mg/dl (8.5-10.1); CREATININE 0.78 mg/dl (0.60-1.40); MAGNESIUM 2.1 mg/dl (1.8-2.4)
[2016-07-31] MEDS: VANCOMYCIN INJ 1,200 MG in SODIUM CHLORIDE 0.9% 250ML 250 ML IV SCH (10:53)
--- NOTE | 2016-07-31 10:58 | Medical Student: [facility] ---
Med Student History & Physical Date & Time of Service: Jul 31, 2016 at 10:46 Chief Complaint: Bilateral Pneumonia,Hypoxia Primary Care Physician: Leny Rehman M.D. History of Present Illness This is a 60 y/o male who presented to the ED last night following increasing shortness of breath and worsening back pain. Patient has a past medical history significant for recently diagnosed invasive mesothelioma, sarcomatoid type. He was diagnosed in April [address] Bermudez. At this time he has undergone 21 rounds of chemotherapy and 10 radiation treatments. He was scheduled to see a mesothelioma specialist in [place] on Sunday, but his is cancelling the appointment. He recently had a chest tube removed by Dr. Thompson that had initially been placed for a hydropneumothorax. He has struggled with pain control since diagnosis, and has had several pathologic fractures to date. Per , the patient has become increasingly confused and disoriented over the last week. She has not noted any significant increase in coughing, but his pain has worsened over the week. During interview he is oriented to person but not to time or place. He is not complaining of pain or any other symptoms. He is laying in no apparent discomfort and dazes off intermittently during interview. Past Medical/Surgical History Medical Problems: (1) Fracture of rib of right side Status: Acute (2) Hx-Prostatic Malignancy Status: Resolved (3) Lumbago Status: Chronic (4) Mesothelioma Status: Chronic (5) Pleuritic chest pain Status: Acute (6) Reflux Esophagitis Status: Chronic (7) Right lower lobe lung mass Status: Acute (8) Sepsis Status: Acute Surgical Problems: (1) History of decompression of ulnar nerve Status: Resolved (2) History of lumbosacral spine surgery Status: Resolved (3) History of prostatectomy Status: Resolved Family History FHX of diabetes mellitus and hypertension Social History Worked in [employer] for 15 years back in 70s and 80s. 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 Smoking Status: Never Smoker Drug Use: none Marital Status: Housing status: lives with family Occupational Status: retired Allergies Coded Allergies: Adhesives (Verified Allergy, Intermediate, rash blisters, 07/30/16) Hydromorphone (Verified Adverse Reaction, Intermediate, Severe N/V, ) HIS FAMILY DOES NOT WANT HIM TO GET DILAUDID BECAUSE IT MAKES HIM VOMIT Medications Cyanocobalamin (B-12 Compliance Injection), 1,000 MCG INJ UD Esomeprazole Magnesium (Nexium), 40 MG PO DAILY Fentanyl (Fentanyl), 100 MCG TD Q72H Folic Acid (Folvite), 1 MG PO DAILY Ibuprofen Tab (Advil), 200-600 MG PO Q4H PRN for Pain Lorazepam (Ativan), 1 MG PO HS Magnesium Oxide (Magnesium-Oxide), 400 MG PO Q12 Oxycodone Hcl (Oxycodone Hcl), 10 MG PO Q4H Polyethylene (Miralax), 17 GM PO DAILY Promethazine Hcl (Phenergan), 25 MG PO Q6H PRN for Nausea Sennosides-Docusate Sodium (Docusate Sodium/Senna), 2 TAB PO DAILY Review of Systems Unable to be obtained due to patient's mental status. Physical Exam Vital Signs (24 Hours) Date Time Temp Pulse Resp B/P Pulse Ox O2 Delivery O2 Flow Rate FiO2 07/31/16 08:12 106 20 95 Nasal Cannula 4.0 07/31/16 08:03 36.3 92 20 97/68 96 Nasal Cannula 4.0 07/31/16 00:00 Nasal Cannula 4.0 07/30/16 23:28 36.3 104 18 98/63 94 Nasal Cannula 4.0 07/30/16 21:28 36.5 107 18 136/78 96 Nasal Cannula 4.0 07/30/16 20:00 Nasal Cannula 4.0 07/30/16 20:00 Nasal Cannula 4.0 07/30/16 19:51 115 18 97/57 100 07/30/16 18:36 112 20 93/60 94 Nasal Cannula 4.0 07/30/16 17:02 117 18 102/66 97 Nasal Cannula 4.0 07/30/16 15:43 112 20 95 Nasal Cannula 4.0 07/30/16 15:30 109 20 114/73 99 Nasal Cannula 4.0 07/30/16 14:56 99 Nasal Cannula 4.0 07/30/16 14:23 95 Nasal Cannula 4.0 07/30/16 14:12 95 Nasal Cannula 4.0 07/30/16 14:12 95 Nasal Cannula 4.0 07/30/16 14:12 37.0 116 22 101/68 85 Room Air General Appearance: WD/WN, no apparent distress Head: normocephalic, atraumatic Eyes: + pertinent finding (Right sided miosis and ptosis, consistent with potential Katrin's Syndrome ) Neck: supple, no adenopathy, thyroid normal, no JVD Respiratory/Chest: chest non-tender, no respiratory distress, no accessory muscle use, + decreased breath sounds Cardiovascular: regular rate, rhythm, no gallop, no JVD, no murmur, normal peripheral pulses, + pertinent finding (b/l leg swelling per 's comparison to his baseline. Right leg worse than left.) Abdomen/GI: normal bowel sounds, non tender, soft, no organomegaly, no pulsatile mass Back: normal inspection, no CVA tenderness, no muscle spasm Extremities/Musculoskelatal: normal inspection, no calf tenderness, normal capillary refill, normal range of motion, + pedal edema Neurologic/Psych: normal mood/affect, + disoriented, + pertinent finding ( right ptosis, miosis ) Skin: normal color, warm/dry, no rash Diagnostics Laboratory Results Results Past 24 Hours Test 07/30/16 14:26 07/30/16 14:57 07/30/16 15:15 07/30/16 16:06 Range/Units White Blood Count 18.22 4.8-10.8 K/uL Red Blood Count 3.03 4.7-6.1 M/uL Hemoglobin 9.8 14.0-18.0 g/dL Hematocrit 28.5 42-52 % Mean Corpuscular Volume 94.1 80-100 fL Mean Corpuscular Hemoglobin 32.3 25-34 pg Mean Corpuscular Hemoglobin Concent 34.4 32-36 g/dl Platelet Count 239 130-400 K/uL Mean Platelet Volume 9.9 7.4-10.4 fL Neutrophils (%) (Auto) 78.0 % Lymphocytes (%) (Auto) 6.9 % Monocytes (%) (Auto) 10.1 % Eosinophils (%) (Auto) 4.3 % Basophils (%) (Auto) 0.2 % Neutrophils # (Auto) 14.20 1.4-6.5 K/uL Lymphocytes # (Auto) 1.26 1.2-3.4 K/uL Monocytes # (Auto) 1.84 0.11-0.59 K/uL Eosinophils # (Auto) 0.79 0-0.5 K/uL Basophils # (Auto) 0.03 0-0.2 K/uL RDW Standard Deviation 68.4 36.4-46.3 fL RDW Coefficient of Variation 20.6 11.5-14.5 % Immature Granulocyte % (Auto) 0.5 % Immature Granulocyte # (Auto) 0.10 0.00-0.02 K/uL Anisocytosis PRESENT Sodium Level 133 136-145 mmol/L Potassium Level 3.5-5.1 mmol/L Chloride Level 94 98-107 mmol/L Carbon Dioxide Level 29 21-32 mmol/L Anion Gap 10.0 3-11 mmol/L Blood Urea Nitrogen 18 7-18 mg/dl Creatinine 0.92 0.60-1.40 mg/dl Est Creatinine Clear Calc Drug Dose 80.5 ml/min Estimated GFR () 102.9 Estimated GFR (Non- 88.8 BUN/Creatinine Ratio 19.0 10-20 Random Glucose 105 70-99 mg/dl Calcium Level 8.7 8.5-10.1 mg/dl Total Bilirubin 0.6 0.2-1 mg/dl Aspartate Amino Transf (AST/SGOT) 15-37 U/L Alanine Aminotransferase (ALT/SGPT) 23 12-78 U/L Alkaline Phosphatase 115 45-117 U/L Total Creatine Kinase 39-308 U/L Creatine Kinase MB 1.8 0.5-3.6 ng/ml Creatine Kinase MB Ratio 0-3.0 Troponin I 0.026 0-0.045 ng/ml Pro-B-Type Natriuretic Peptide 931 0-900 pg/ml Total Protein 7.2 6.4-8.2 gm/dl Albumin 2.2 3.4-5.0 gm/dl Globulin 5.0 2.5-4.0 gm/dl Albumin/Globulin Ratio 0.4 0.9-2 Influenza Type A Antigen Neg for Influ A NEG Influenza Type B Antigen Neg for Influ B NEG Urine Color DK YELLOW Urine Appearance CLEAR CLEAR Urine pH 5.0 4.5-7.5 Urine Specific [place] 1.021 1.000-1.030 Urine Protein TRACE NEG Urine Glucose (UA) NEG NEG Urine Ketones TRACE NEG Urine Occult Blood NEG NEG Urine Nitrite NEG NEG Urine Bilirubin NEG NEG Urine Urobilinogen NEG NEG Urine Leukocyte Esterase NEG NEG Urine WBC (Auto) 1-5 0-5 /hpf Urine RBC (Auto) 0-4 0-4 /hpf Urine Hyaline Casts (Auto) 1-5 0-5 /lpf Urine Epithelial Cells (Auto) >30 0-5 /lpf Urine Bacteria (Auto) NEG NEG Bedside Lactic Acid Venous 3.62 0.90-1.70 mmol/L Test 07/30/16 16:11 07/30/16 22:55 07/31/16 08:49 Range/Units Prothrombin Time 12.8 12.9 9.0-12.0 SECONDS Prothromb Time International Ratio 1.2 1.2 0.9-1.1 Activated Partial Thromboplast Time 27.5 26.6 21.0-31.0 SECONDS Partial Thromboplastin Ratio 1.1 1.0 Potassium Level 4.2 4.0 3.5-5.1 mmol/L Aspartate Amino Transf (AST/SGOT) 19 17 15-37 U/L Total Creatine Kinase 177 39-308 U/L Lactic Acid Level 1.3 0.4-2.0 mmol/L White Blood Count 13.84 4.8-10.8 K/uL Red Blood Count 3.03 4.7-6.1 M/uL Hemoglobin 9.6 14.0-18.0 g/dL Hematocrit 28.7 42-52 % Mean Corpuscular Volume 94.7 80-100 fL Mean Corpuscular Hemoglobin 31.7 25-34 pg Mean Corpuscular Hemoglobin Concent 33.4 32-36 g/dl Platelet Count 223 130-400 K/uL Mean Platelet Volume 9.5 7.4-10.4 fL Neutrophils (%) (Auto) 95.6 % Lymphocytes (%) (Auto) 2.0 % Monocytes (%) (Auto) 1.7 % Eosinophils (%) (Auto) 0.2 % Basophils (%) (Auto) 0.1 % Neutrophils # (Auto) 13.24 1.4-6.5 K/uL Lymphocytes # (Auto) 0.27 1.2-3.4 K/uL Monocytes # (Auto) 0.24 0.11-0.59 K/uL Eosinophils # (Auto) 0.03 0-0.5 K/uL Basophils # (Auto) 0.01 0-0.2 K/uL RDW Standard Deviation 71.0 36.4-46.3 fL RDW Coefficient of Variation 21.1 11.5-14.5 % Immature Granulocyte % (Auto) 0.4 % Immature Granulocyte # (Auto) 0.05 0.00-0.02 K/uL Polychromasia 1+ Basophilic Stippling 1+ Anisocytosis PRESENT Ovalocytes 1+ Sodium Level 139 136-145 mmol/L Chloride Level 100 98-107 mmol/L Carbon Dioxide Level 26 21-32 mmol/L Anion Gap 13.0 3-11 mmol/L Blood Urea Nitrogen 14 7-18 mg/dl Creatinine 0.78 0.60-1.40 mg/dl Est Creatinine Clear Calc Drug Dose 95.0 ml/min Estimated GFR () 112.1 Estimated GFR (Non- 96.7 BUN/Creatinine Ratio 18.1 10-20 Random Glucose 137 70-99 mg/dl Calcium Level 8.3 8.5-10.1 mg/dl Magnesium Level 2.1 1.8-2.4 mg/dl Total Bilirubin 0.5 0.2-1 mg/dl Direct Bilirubin 0.1 0-0.2 mg/dl Alanine Aminotransferase (ALT/SGPT) 20 12-78 U/L Alkaline Phosphatase 105 45-117 U/L Total Protein 6.8 6.4-8.2 gm/dl Albumin 2.2 3.4-5.0 gm/dl Microbiology Results 07/30/16 Blood Culture, Received Pending 07/30/16 Blood Culture, Received Pending 07/30/16 MRSA DNA Surveillance Screen - Final, Complete Specimen Negative for MRSA by DNA Probe Diagnostic Radiology Chest CT IMPRESSION: 1. Moderately progressive bilateral pleural effusions. 2. Slight decrease in volume of right-sided hydropneumothorax. 3. Slightly progressive metastatic disease involving both hemithoraces, chest wall regions bilaterally, as well as anterior right parasternal lesion. 4. Pathologic fracture of a least one posterior rib and the right which is unchanged. 5. Slightly progressive pulmonary nodularity. 6. The study is considered negative for major pulmonary embolus EKG EKG shows sinus tachycardia at 111 bpm, with no acute ST-T changes. Impression Assessment and Plan Assessment: This is a 60 year old male with altered mental status and b/l pleural effusions in the context of malignant mesothelioma. Patienthas elevated white blood cell count and b/l pleural effusions which is consistent with likely pneumonia. Of note, patient is presenting with signs/symptoms of Katrin Syndrome, including ptosis and miosis, which is newly onset according to . Plan: Malignant mesothelioma with bilateral pneumonia, pleural effusions, pathologic rib fractures -Solu-Medrol 60 mg IV every 6 hours -vancomycin IV per renal dosing -levofloxacin 500 mg IV every 24 hours -Zosyn IV -guaifenesin extended release 600 mg by mouth twice a day -Xopenex with Atrovent nebulizer to use every 6 hours while awake and every 2 hours when necessary. Chronic pain syndrome with acute worsening secondary to pathologic rib fractures -pain currently controlled adequately -fentanyl patch 100 to 150g every 72 hours -continue oxycodone at 10 mg by mouth increase from every 4 to every 2 hours when necessary. -morphine sulfate 2-4 mg IV every 2 hours when necessary Anxiety -lorazepam 1 mg by mouth at bedtime to 1 mg by mouth every 4 hours when necessary. GERD -pantoprazole 40 mg by mouth daily. Constipation -Senokot 2 tablets by mouth daily and MiraLAX 17 g by mouth daily. Consult palliative care Level of Care Oncology Advanced Directives Existing Advance Directive: No Existing Living Will: No Existing Power of Carpet Measurer: No DVT Prophylaxis SCDs Social Service Consult Cancer Patient Under [place]
[2016-07-31] MEDS ORDERED: LEVOFLOXACIN / D5W 500 MG in PREMIXED IN D5W 100 ML IV SCH (14:00)
[2016-07-31] MEDS: LEVOFLOXACIN 500MG / D5W IV SCH (14:01)
--- NOTE | 2016-07-31 17:46 | Pulmonary Consultation ---
History General Date of Service: Jul 31, 2016. Stated Complaint: Bilateral Pneumonia,Hypoxia HPI The patient is a 60 year old male who presents to [facility] with complaints of Bilateral Pneumonia,Hypoxia. The patient's primary care provider is Leny Rehman M.D.. 60-year-old male initially diagnosed with sarcomatoid mesothelioma April 2016 at [facility]. At that time he underwent thoracoscopy with IPC placement. The patient then transferred care to [facility] and underwent chemoradiation with Dr. Chappell. He was recently admitted with notable chest pain and Dr. Potts of the thoracic surgery Department removed as IPC at that time as the drainage was minimal. He's had progression of the signs and symptoms over the last 3 weeks with continued pleurisy bilaterally now and progressive shortness of breath now requiring oxygen support. During our conversation the patient is confused but he notes: Fever, pleurisy, dyspnea at rest as well as exertion and weight loss. WBC: [id number] BUN: 14 Plt: 223 INR: 1.2 Influenza A and B negative Microbiology history: No notable growth MRSA DNA probe: Negative CT angiogram PE protocol (): Compared to 07/19/2016 Pathological rib fracture Progressive pulmonary nodules Possible progressive metastatic disease involving the pleural hemithoraces No signs of central pulmonary embolisms Increased left-sided pleural effusion Right-sided pleural effusion with rounded atelectasis Historian: patient, family, EMS Review of Systems Constitutional: reports: malaise, weakness Eyes: reports: no symptoms ENT: reports: no symptoms Cardiovascular: reports: chest pain, chest tightness Respiratory: reports: MENDOZA, shortness of breath Gastrointestinal: reports: other (right upper quadrant discomfort) Genitourinary - Male: reports: no symptoms Musculoskeletal: reports: muscle spasms, myalgias Integumentary: reports: other (right hemithoracic post radiation skin changes) Neurologic: reports: dizziness, lethargy Psychiatric: reports: anxiety Endocrine: no symptoms Hematologic / Lymphatic: no symptoms Allergic / Immunologic: no symptoms Past Medical History Past Medical History: #1 mesothelioma/sarcomatoid-liver metastasis Diagnosed May 08, 2016 Systemic chemotherapy/XRT with Dr. 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 Hx Tobacco Use In Past Year?: No Smoking Status: Never Smoker Marital status: Housing status: lives with family Occupational Status: retired History of MDRO History of MDRO: Yes Type of MDRO: MRSA Allergies Coded Allergies: Adhesives (Verified Allergy, Intermediate, rash blisters, 07/30/16) Hydromorphone (Verified Adverse Reaction, Intermediate, Severe N/V, ) HIS FAMILY DOES NOT WANT HIM TO GET DILAUDID BECAUSE IT MAKES HIM VOMIT Current Medications Reported Home Medications Medications Dose Route/Sig Max Daily Dose Days Date Category Dose Instructions Ativan (Lorazepam) 1 Mg Tab 1 Mg PO HS 07/27/16 Reported Magnesium-Oxide (Magnesium Oxide) 400 Mg Tab 400 Mg PO Q12 7 07/20/16 Rx Fentanyl 100 Mcg Tdsy 100 Mcg TD Q72H 12 07/20/16 Rx B-12 Compliance Injection (Cyanocobalamin) 1,000 Mcg/Ml Kit 1,000 Mcg INJ UD 07/18/16 Reported GETS EVERY 90 DAYS Miralax (Polyethylene) 17 Gm Pow 17 Gm PO DAILY 07/18/16 Reported Phenergan (Promethazine HCl) 25 Mg Tab 25 Mg PO Q6H PRN 06/17/16 Rx Docusate Sodium/Senna (Sennosides-Docusate Sodium) 1 Tab Tab 2 Tab PO DAILY 06/17/16 Reported Folvite (Folic Acid) 1 Mg Tab 1 Mg PO DAILY 05/08/16 Reported Oxycodone Hcl 5 Mg Cap 10 Mg PO Q4H 05/08/16 Reported Nexium (Esomeprazole Magnesium) 40 Mg Capcr 40 Mg PO DAILY 05/13/15 Reported Advil (Ibuprofen) 200 Mg Tab 200-600 Mg PO Q4H PRN 07/28/13 Reported Physical Physical Exam Vital Signs: Date Time Temp Pulse Resp B/P Pulse Ox O2 Delivery O2 Flow Rate FiO2 07/31/16 16:30 97 Nasal Cannula 4.0 07/31/16 15:32 36.5 115 18 112/73 97 Nasal Cannula 4.0 07/31/16 13:59 106 20 96 Nasal Cannula 4.0 07/31/16 12:26 96 Nasal Cannula 4.0 07/31/16 08:12 106 20 95 Nasal Cannula 4.0 07/31/16 08:03 36.3 92 20 97/68 96 Nasal Cannula 4.0 07/31/16 00:00 Nasal Cannula 4.0 07/30/16 23:28 36.3 104 18 98/63 94 Nasal Cannula 4.0 07/30/16 21:28 36.5 107 18 136/78 96 Nasal Cannula 4.0 07/30/16 20:00 Nasal Cannula 4.0 07/30/16 20:00 Nasal Cannula 4.0 07/30/16 19:51 115 18 97/57 100 07/30/16 18:36 112 20 93/60 94 Nasal Cannula 4.0 General Appearance: severe distress, cachetic Head: NORMOCEPHALIC Eyes: PERRLA, NO DISCHARGE, EOMI ENT: NORMAL EAR EXAM, NORMAL NASAL EXAM, other (dry mucous membranes) Neck: NORMAL RANGE OF MOTION, NO TENDERNESS, TRACHEA MIDLINE, NO STRIDOR Respiratory: other (decreased breath sounds bilaterally at the basis right greater than left with decrease rest sounds throughout the right hemithoraces as well) Cardiovasular: REGULAR RATE/RHYTHM, NO M/G/R Abdomen: other (right upper quadrant discomfort but positive bowel sounds no rebound noted) Genitourinary - Male: EXTERNAL GENITALIA NORMAL Back: NORMAL INSPECTION, NO MIDLINE TENDERNESS, other (post radiation changes along the right hemithorax) Upper Extremities: NO EDEMA, NO DEFORMITY Lower Extremities: NO EDEMA, NO DEFORMITY, NORMAL ROM Pulses: carotid (R) (2+), carotid (L) (2+), dorsalis pedis (R) (1+), dorsalis pedis (L) (1+) Neuro: disoriented, confused Reflexes: biceps (R) (2+), bicpes (L) (2+), patellar (L) (2+), achilles (R) (2+ ) Babinski Testing: right (downgoing), left (downgoing) Psychiatric: anxious Diagnostics Labs Results Past 24 Hours Test 07/30/16 22:55 07/31/16 08:49 Range/Units Lactic Acid Level 1.3 0.4-2.0 mmol/L White Blood Count 13.84 4.8-10.8 K/uL Red Blood Count 3.03 4.7-6.1 M/uL Hemoglobin 9.6 14.0-18.0 g/dL Hematocrit 28.7 42-52 % Mean Corpuscular Volume 94.7 80-100 fL Mean Corpuscular Hemoglobin 31.7 25-34 pg Mean Corpuscular Hemoglobin Concent 33.4 32-36 g/dl Platelet Count 223 130-400 K/uL Mean Platelet Volume 9.5 7.4-10.4 fL Neutrophils (%) (Auto) 95.6 % Lymphocytes (%) (Auto) 2.0 % Monocytes (%) (Auto) 1.7 % Eosinophils (%) (Auto) 0.2 % Basophils (%) (Auto) 0.1 % Neutrophils # (Auto) 13.24 1.4-6.5 K/uL Lymphocytes # (Auto) 0.27 1.2-3.4 K/uL Monocytes # (Auto) 0.24 0.11-0.59 K/uL Eosinophils # (Auto) 0.03 0-0.5 K/uL Basophils # (Auto) 0.01 0-0.2 K/uL RDW Standard Deviation 71.0 36.4-46.3 fL RDW Coefficient of Variation 21.1 11.5-14.5 % Immature Granulocyte % (Auto) 0.4 % Immature Granulocyte # (Auto) 0.05 0.00-0.02 K/uL Polychromasia 1+ Basophilic Stippling 1+ Anisocytosis PRESENT Ovalocytes 1+ Prothrombin Time 12.9 9.0-12.0 SECONDS Prothromb Time International Ratio 1.2 0.9-1.1 Activated Partial Thromboplast Time 26.6 21.0-31.0 SECONDS Partial Thromboplastin Ratio 1.0 Sodium Level 139 136-145 mmol/L Potassium Level 4.0 3.5-5.1 mmol/L Chloride Level 100 98-107 mmol/L Carbon Dioxide Level 26 21-32 mmol/L Anion Gap 13.0 3-11 mmol/L Blood Urea Nitrogen 14 7-18 mg/dl Creatinine 0.78 0.60-1.40 mg/dl Est Creatinine Clear Calc Drug Dose 95.0 ml/min Estimated GFR () 112.1 Estimated GFR (Non- 96.7 BUN/Creatinine Ratio 18.1 10-20 Random Glucose 137 70-99 mg/dl Calcium Level 8.3 8.5-10.1 mg/dl Magnesium Level 2.1 1.8-2.4 mg/dl Total Bilirubin 0.5 0.2-1 mg/dl Direct Bilirubin 0.1 0-0.2 mg/dl Aspartate Amino Transf (AST/SGOT) 17 15-37 U/L Alanine Aminotransferase (ALT/SGPT) 20 12-78 U/L Alkaline Phosphatase 105 45-117 U/L Total Protein 6.8 6.4-8.2 gm/dl Albumin 2.2 3.4-5.0 gm/dl Microbiology Results 07/30/16 MRSA DNA Surveillance Screen - Final, Complete Specimen Negative for MRSA by DNA Probe Diagnostic Radiology CT angiogram PE protocol (): Compared to 07/19/2016 Pathological rib fracture Progressive pulmonary nodules Possible progressive metastatic disease involving the pleural hemithoraces No signs of central pulmonary embolisms Increased left-sided pleural effusion Right-sided pleural effusion with rounded atelectasis EKG EKG 07/30/2016 sinus tachycardia Impression Assessment and Plan 60-year-old gentleman with sarcomatoid mesothelioma, pleurisy and progressive dyspnea: #1 mesothelioma: Patient is currently under the care of Dr. Jensen and Tuan Henderson for systemic chemotherapy in radiation. It does appear the family is going to interview a new physician at [facility] #2 pleurisy: We'll initiate Toradol every 6 hours as Toradol as noted have good effect versus pleurisy and has worked for this patient in the past. We'll have to monitor his renal function and GI possible side effects. #3 dyspnea: Will month prior patient did not require oxygen but is currently using 3-4 L to maintain proper SaO2. I discussed the possibility of thoracentesis with the patient and his family and also demonstrated the change from his thoracic CAT scan on 07/19/2016 to . #3 ID: Agree with current antibiotic choices for hospital associated infections. We'll also follow-up on cultures as severe pain and progressive disease can initiate/cause leukocytosis.
[2016-07-31] MEDS ORDERED: KETOROLAC TROMETHAMINE 30 MG/ML VIAL IV STA (17:52)
[2016-07-31] MEDS ORDERED: VANCOMYCIN TROUGH ONE (19:30)
[2016-07-31] MEDS: LORAZEPAM 1 MG TAB PO SCH (20:33)
--- NOTE | 2016-07-31 21:45 | Progress Note ---
Subjective Subjective Date of Service: Jul 31, 2016. Pt evaluation today including: conversation w/ patient, conversation w/ family , physical exam, chart review, review of studies, review of inpatient medication list Problem List Medical Problems: (1) Fracture of rib of right side Status: Acute (2) Lumbago Status: Chronic (3) Mesothelioma Status: Chronic (4) Pleuritic chest pain Status: Acute (5) Reflux Esophagitis Status: Chronic (6) Right lower lobe lung mass Status: Acute (7) Sepsis Status: Acute Review of Systems Constitutional: No fever ENT: No hearing loss Respiratory: + cough, + dyspnea on exertion Abdomen: No pain Musculoskeletal: No joint pain Male : No urinary frequency Neurologic: No memory loss Psychiatric: No depression symptoms Endo: + fatigue Physical Exam Vital Signs Vital Signs Past 24 Hours: Date Time Temp Pulse Resp B/P Pulse Ox O2 Delivery O2 Flow Rate FiO2 07/31/16 20:00 Nasal Cannula 4.0 07/31/16 19:55 100 18 96 Nasal Cannula 4.0 07/31/16 16:30 97 Nasal Cannula 4.0 07/31/16 15:32 36.5 115 18 112/73 97 Nasal Cannula 4.0 07/31/16 13:59 106 20 96 Nasal Cannula 4.0 07/31/16 12:26 96 Nasal Cannula 4.0 07/31/16 08:12 106 20 95 Nasal Cannula 4.0 07/31/16 08:03 36.3 92 20 97/68 96 Nasal Cannula 4.0 07/31/16 00:00 Nasal Cannula 4.0 07/30/16 23:28 36.3 104 18 98/63 94 Nasal Cannula 4.0 Physical Exam: General Appearance: WD/WN, no apparent distress Eyes: bilateral eyes normal inspection ENT: hearing grossly normal, pharynx normal Neck: supple, no JVD Respiratory/Chest: + decreased breath sounds, + crackles Cardiovascular: no edema, no murmur Abdomen: non tender, no organomegaly Extremities: non-tender Neurologic/Psychiatric: alert Skin: warm/dry Medications Medications: Current Inpatient Medications Medications (Trade) Dose Ordered Sig/Chao Route Start Time Stop Time Status Last Admin Dose Admin Ioversol (Optiray 320) 125 ml UD PRN IV 07/30/16 16:45 08/03/16 16:44 Folic Acid (Folvite Tab) 1 mg DAILY PO 07/31/16 08:00 08/30/16 08:59 07/31/16 08:35 1 MG Lorazepam (Ativan Tab) 1 mg HS PO 07/30/16 21:00 08/29/16 20:59 07/31/16 20:33 1 MG Magnesium Oxide (Mag-Ox Tab) 400 mg Q12 PO 07/30/16 21:00 08/29/16 20:59 07/31/16 20:34 400 MG Polyethylene (Miralax Powder Packet) 17 gm DAILY PO 07/31/16 08:00 08/30/16 08:59 07/31/16 08:35 17 GM Promethazine HCl (Phenergan Tab) 25 mg Q6H PRN PO 07/30/16 19:00 08/29/16 18:59 Senna/Docusate Sodium (Senokot S Tab) 2 tab DAILY PO 07/31/16 08:00 08/30/16 08:59 07/31/16 08:35 2 TAB Pantoprazole Sodium (Protonix Tab) 40 mg QAM PO 07/31/16 08:00 08/30/16 08:59 07/31/16 08:35 40 MG Miscellaneous (Fentanyl Patch Remove & Waste) 1 ea Q3D N/A 08/02/16 21:00 09/01/16 20:59 Miscellaneous Information (Check Fentanyl Patch Placement) 1 ea QS N/A 07/31/16 00:00 08/30/16 00:00 07/31/16 16:44 1 EA Acetaminophen (Tylenol Tab) 650 mg Q4H PRN PO 07/30/16 19:00 08/29/16 18:59 Magnesium Hydroxide (Milk Of Magnesia Susp) 30 ml Q6H PRN PO 07/30/16 19:00 08/29/16 18:59 Diphenhydramine HCl (Benadryl Inj) 25 mg Q4H PRN IV 07/30/16 19:00 08/29/16 18:59 Al Hydrox/Mg Hydrox/ Simethicone 15 ml 15 ml Q4H PRN PO 07/30/16 19:00 08/29/16 18:59 Promethazine HCl/ Sodium Chloride (Phenergan Inj/ Nss 50ml) 50.5 ml @ 202 mls/hr Q4H PRN IV 07/30/16 19:00 08/29/16 18:59 Zolpidem Tartrate (Ambien Tab) 5 mg HSZ PRN PO 07/30/16 19:00 08/29/16 18:59 Ondansetron HCl (Zofran Inj) 4 mg Q6H PRN IV 07/30/16 19:00 08/29/16 18:59 07/30/16 21:03 4 MG Morphine Sulfate (MoRPHine SULFATE INJ) 2 mg Q2H PRN IV 07/30/16 19:00 08/13/16 18:59 Morphine Sulfate 4 mg 4 mg Q2H PRN IV 07/30/16 19:00 08/13/16 18:59 07/30/16 21:03 4 MG Methylprednisolone Sodium Succinate/ Syringe (Solu-Medrol IV/ Syringe) 0.96 ml @ 1.5 mls/min Q6H IV 07/30/16 22:00 08/29/16 21:59 07/31/16 20:34 1.5 MLS/MIN Guaifenesin 600 mg 600 mg BID PO 07/30/16 20:34 08/29/16 20:59 07/31/16 20:34 600 MG Sodium Chloride (Nss 1000ml) 1,000 ml @ 125 mls/hr Q8H IV 07/30/16 21:15 08/29/16 17:22 07/31/16 20:33 125 MLS/HR Ipratropium [place] (Atrovent 0.02% 0.5MG/2.5ML Neb) 0.5 mg Q6R INH 07/31/16 03:00 08/30/16 02:59 07/31/16 21:00 0.5 MG Levalbuterol (Xopenex 1.25MG/ 0.5ML Neb) 1.25 mg Q6R INH 07/31/16 03:00 08/30/16 02:59 07/31/16 21:00 1.25 MG Ipratropium [place] (Atrovent 0.02% 0.5MG/2.5ML Neb) 0.5 mg Q2H PRN INH 07/30/16 21:15 08/29/16 21:14 Levalbuterol 1.25 mg 1.25 mg Q2H PRN INH 07/30/16 21:15 08/29/16 21:14 Piperacillin Sod/ Tazobactam Sod/ Dextrose (Zosyn Iv/D5 100ml) 115 ml @ 28.75 mls/ hr Q8H IV 07/31/16 00:00 08/07/16 00:00 07/31/16 16:43 28.75 MLS/HR Piperacillin Sod/ Tazobactam Sod 1 ea 1 ea UD PRN N/A 07/30/16 21:15 08/29/16 21:14 Levofloxacin 500 mg/Prmx 100 ml @ 100 mls/hr DAILY@1400 IV 07/31/16 14:00 08/07/16 13:59 07/31/16 14:01 100 MLS/HR Lorazepam/Syringe (Ativan Inj/ Syringe) 1 ml @ 1 mls/min Q4H PRN IV 07/30/16 23:00 08/29/16 22:59 07/31/16 02:18 1 MLS/MIN Fentanyl (Duragesic Patch) 50 mcg Q3D@2100 TD 07/30/16 23:50 08/13/16 23:49 07/31/16 00:05 50 MCG Miscellaneous (Fentanyl Patch Remove & Waste) 1 ea Q3D@2059 N/A 08/02/16 20:59 09/01/16 20:58 Miscellaneous Information (Check Fentanyl Patch Placement) 1 ea QS N/A 07/31/16 08:00 08/30/16 07:59 07/31/16 16:44 1 EA Fentanyl (Duragesic Patch) 100 mcg Q3D@2100 TD 08/02/16 21:00 08/16/16 20:59 Ketorolac Tromethamine (Toradol Inj) 15 mg Q6H PRN IV 08/01/16 00:00 08/03/16 00:00 Laboratory Data Labs: Last 24 Hours Test 07/30/16 22:55 07/31/16 08:49 Lactic Acid Level 1.3 mmol/L White Blood Count 13.84 K/uL Red Blood Count 3.03 M/uL Hemoglobin 9.6 g/dL Hematocrit 28.7 % Mean Corpuscular Volume 94.7 fL Mean Corpuscular Hemoglobin 31.7 pg Mean Corpuscular Hemoglobin Concent 33.4 g/dl Platelet Count 223 K/uL Mean Platelet Volume 9.5 fL Neutrophils (%) (Auto) 95.6 % Lymphocytes (%) (Auto) 2.0 % Monocytes (%) (Auto) 1.7 % Eosinophils (%) (Auto) 0.2 % Basophils (%) (Auto) 0.1 % Neutrophils # (Auto) 13.24 K/uL Lymphocytes # (Auto) 0.27 K/uL Monocytes # (Auto) 0.24 K/uL Eosinophils # (Auto) 0.03 K/uL Basophils # (Auto) 0.01 K/uL RDW Standard Deviation 71.0 fL RDW Coefficient of Variation 21.1 % Immature Granulocyte % (Auto) 0.4 % Immature Granulocyte # (Auto) 0.05 K/uL Polychromasia 1+ Basophilic Stippling 1+ Anisocytosis PRESENT Ovalocytes 1+ Prothrombin Time 12.9 SECONDS Prothromb Time International Ratio 1.2 Activated Partial Thromboplast Time 26.6 SECONDS Partial Thromboplastin Ratio 1.0 Sodium Level 139 mmol/L Potassium Level 4.0 mmol/L Chloride Level 100 mmol/L Carbon Dioxide Level 26 mmol/L Anion Gap 13.0 mmol/L Blood Urea Nitrogen 14 mg/dl Creatinine 0.78 mg/dl Est Creatinine Clear Calc Drug Dose 95.0 ml/min Estimated GFR () 112.1 Estimated GFR (Non- 96.7 BUN/Creatinine Ratio 18.1 Random Glucose 137 mg/dl Calcium Level 8.3 mg/dl Magnesium Level 2.1 mg/dl Total Bilirubin 0.5 mg/dl Direct Bilirubin 0.1 mg/dl Aspartate Amino Transf (AST/SGOT) 17 U/L Alanine Aminotransferase (ALT/SGPT) 20 U/L Alkaline Phosphatase 105 U/L Total Protein 6.8 gm/dl Albumin 2.2 gm/dl Assessment and Plan A 60 yo male comes with Malignant mesothelioma with bilateral pneumonia, pleural effusions, pathologic rib fractures--the patient will be admitted to the oncology unit. continue Solu-Medrol 60 mg IV every 6 hours, vancomycin IV per renal dosing, levofloxacin 500 mg IV every 24 hours, guaifenesin extended release 600 mg by mouth twice a day, and Xopenex with Atrovent nebulizer to use every 6 hours while awake and every 2 hours when necessary. Known to Dr Jensen and Dr Landin, has appt at [facility], no chemoTx now due to pneumonia Pleural effusion, parapneumonic vs malignant effusion sec to mesothelioma, consulted pulmonary for possible thoracentesis Chronic pain syndrome with acute worsening secondary to pathologic rib fractures continue fentanyl patch 100 to 150g every 72 hours, and continue oxycodone at 10 mg by mouth increase from every 4 to every 2 hours when necessary. morphine sulfate 2-4 mg IV every 2 hours when necessary Anxiety lorazepam 1 mg by mouth at bedtime to 1 mg by mouth every 4 hours when necessary. GERD pantoprazole 40 mg by mouth daily. Constipation continue Senokot 2 tablets by mouth daily and MiraLAX 17 g by mouth daily. will consider palliative care consult regarding possible home hospice will need to address code status
[2016-08-01] VITALS (9 sets, daily range): BP systolic 100–111; BP diastolic 64–70; PULSE 87–103; TEMP 36.2–36.5; O2SAT 91–96
[2016-08-01] MEDS: IPRATROPIUM BROMIDE NEB SOLN 0.02% 2.5 ML VIAL INH SCH ×4 (01:55→19:21)
[2016-08-01] MEDS: LEVALBUTEROL 1.25MG/0.5ML NEB INH SCH ×4 (01:55→19:21)
[2016-08-01] MEDS: LORAZEPAM INJ 1 MG in SYRINGE 0.5 ML IV PRN ×3 (03:32→23:12)
[2016-08-01] MEDS: METHYLPREDNISOLONE IV 60 MG in SYRINGE 0 ML IV SCH ×4 (03:32→20:13)
[2016-08-01] MEDS: SODIUM CHLORIDE 0.9% 1000ML 1,000 ML IV SCH ×3 (05:14→20:14)
[2016-08-01 05:41] LABS: EOS % 0.1 %; HEMATOCRIT 22.9 % (42-52); IG% 0.3 %; LYMPH ABS # 0.46 K/uL (1.2-3.4); MEAN CELL VOLUME 95.8 fL (80-100); MEAN CORPUSCULAR HEMOGLOBIN 32.2 pg (25-34); MEAN CORPUSCULAR HGB CONC 33.6 g/dl (32-36); MEAN PLATELET VOLUME 9.4 fL (7.4-10.4); MONO % 4.1 %; NEUT % 92.5 %; PLATELET COUNT 201 K/uL (130-400); RED BLOOD COUNT 2.39 M/uL (4.7-6.1); WHITE BLOOD COUNT 15.23 K/uL (4.8-10.8)
[2016-08-01 05:52] LABS: INR 1.3 (0.9-1.1); PARTIAL THROMBOPLASTIN RATIO 1.1; PROTHROMBIN TIME (PATIENT) 14.2 SECONDS (9.0-12.0)
[2016-08-01 06:21] LABS: ANISOCYTOSIS PRESENT; COMPLETE YES; POLYCHROMASIA 1+
[2016-08-01 06:23] LABS: CREATININE 0.82 mg/dl (0.60-1.40); MAGNESIUM 2.2 mg/dl (1.8-2.4); POTASSIUM 3.4 mmol/L (3.5-5.1)
[2016-08-01 06:24] LABS: CALCIUM 7.7 mg/dl (8.5-10.1)
[2016-08-01] MEDS: CHECK FENTANYL PATCH PLACEMENT SCH ×6 (07:48→23:13)
[2016-08-01] MEDS: POLYETHYLENE (MIRALAX) 17 GM PACK PO SCH ×2 (08:00→09:01)
[2016-08-01] MEDS: DOCUSATE SODIUM/SENNA 50/8.6MG TAB PO SCH ×2 (08:00→09:02)
[2016-08-01] MEDS: PANTOprazole SOD 40 MG TAB PO SCH ×2 (08:00→09:02)
[2016-08-01] MEDS: GUAIFENESIN 200 MG TAB PO SCH ×3 (08:00→20:13)
[2016-08-01] MEDS: PIPERACILL/TAZOBAC IV 3.375 GM in DEXTROSE 5% 100ML IV SCH ×3 (09:00→23:13)
[2016-08-01] MEDS: MAGNESIUM OXIDE 400 MG TAB PO SCH ×3 (09:00→20:14)
--- NOTE | 2016-08-01 10:16 | Medical Student: [facility] ---
Med Student Progress Note Date of Service Aug 01, 2016. Subjective This is a 60 y/o male with history of malignant sarcomatoid type mesothelioma who presents with continuing altered mental status and b/l pleural effusions. Patient is currently sleeping, recently given ativan due to agitation and stress when asked to do breathing treatment earlier today. He refused treatment and got upset. He continues to be confused per 's report. He knows who he is and who she is, but does not understand where he is, and was heard to be saying 'I want this dream to be over.' He is sleeping most of the day, but says that that is pretty normal for him. The confusion is worse than she has ever seen though. She also notes that his legs seem more swollen and that he is more yellow than usual. He does appear yellow on exam, with some possible mild scleral icterus. However, liver enzymes are not elevated and no hepatomegaly is detected on exam. Also of note, patient has not had a bowel movement since Sunday, which is unusual for him. Cultures to date have not grown anything. WBC elevated today, from 13 to 15.23. We discussed thoracocentesis and is agreeable to having this performed. Review of Systems Notes: Review of systems cannot be completed as patient is sleeping. Objective Vital Signs Date Time Temp Pulse Resp B/P Pulse Ox O2 Delivery O2 Flow Rate FiO2 08/01/16 08:02 36.4 93 18 111/70 93 Nasal Cannula 4.0 08/01/16 07:18 87 18 96 Nasal Cannula 4.0 08/01/16 01:55 102 14 94 Nasal Cannula 4.0 08/01/16 00:00 Nasal Cannula 4.0 07/31/16 23:44 36.3 107 18 111/72 98 Nasal Cannula 3.5 07/31/16 20:00 Nasal Cannula 4.0 07/31/16 19:55 100 18 96 Nasal Cannula 4.0 07/31/16 16:30 97 Nasal Cannula 4.0 07/31/16 15:32 36.5 115 18 112/73 97 Nasal Cannula 4.0 07/31/16 13:59 106 20 96 Nasal Cannula 4.0 07/31/16 12:26 96 Nasal Cannula 4.0 Physical Exam General Appearance: WD/WN, no apparent distress Eyes: right eye pertinent finding (ptosis ) Respiratory/Chest: chest non-tender, no respiratory distress, no accessory muscle use, + decreased breath sounds, + crackles (right > left) Cardiovascular: regular rate, rhythm, no gallop, no JVD, no murmur, + pertinent finding (pedal edema b/l) Abdomen: non tender, soft, no organomegaly, no pulsatile mass, + pertinent finding (hypoactive bowel sounds) Extremities: non-tender, normal inspection, + pedal edema Neurologic/Psychiatric: + disoriented Skin: normal color, warm/dry, no rash Lymphatic: no adenopathy Laboratory Results Last 24 Hours Test 08/01/16 05:22 White Blood Count 15.23 K/uL Red Blood Count 2.39 M/uL Hemoglobin 7.7 g/dL Hematocrit 22.9 % Mean Corpuscular Volume 95.8 fL Mean Corpuscular Hemoglobin 32.2 pg Mean Corpuscular Hemoglobin Concent 33.6 g/dl Platelet Count 201 K/uL Mean Platelet Volume 9.4 fL Neutrophils (%) (Auto) 92.5 % Lymphocytes (%) (Auto) 3.0 % Monocytes (%) (Auto) 4.1 % Eosinophils (%) (Auto) 0.1 % Basophils (%) (Auto) 0.0 % Neutrophils # (Auto) 14.08 K/uL Lymphocytes # (Auto) 0.46 K/uL Monocytes # (Auto) 0.63 K/uL Eosinophils # (Auto) 0.01 K/uL Basophils # (Auto) 0.00 K/uL RDW Standard Deviation 74.2 fL RDW Coefficient of Variation 21.4 % Immature Granulocyte % (Auto) 0.3 % Immature Granulocyte # (Auto) 0.05 K/uL Polychromasia 1+ Anisocytosis PRESENT Prothrombin Time 14.2 SECONDS Prothromb Time International Ratio 1.3 Activated Partial Thromboplast Time 27.8 SECONDS Partial Thromboplastin Ratio 1.1 Sodium Level 142 mmol/L Potassium Level 3.4 mmol/L Chloride Level 104 mmol/L Carbon Dioxide Level 29 mmol/L Anion Gap 9.0 mmol/L Blood Urea Nitrogen 18 mg/dl Creatinine 0.82 mg/dl Est Creatinine Clear Calc Drug Dose 90.3 ml/min Estimated GFR () 109.8 Estimated GFR (Non- 94.8 BUN/Creatinine Ratio 22.0 Random Glucose 147 mg/dl Calcium Level 7.7 mg/dl Magnesium Level 2.2 mg/dl Total Bilirubin 0.3 mg/dl Direct Bilirubin 0.1 mg/dl Aspartate Amino Transf (AST/SGOT) 14 U/L Alanine Aminotransferase (ALT/SGPT) 16 U/L Alkaline Phosphatase 78 U/L Total Protein 5.6 gm/dl Albumin 1.9 gm/dl Medications Medications Administered Medications (Trade) Dose Ordered Sig/[place] Route Start Time Stop Time Status Last Admin Dose Admin Fentanyl Citrate (Fentanyl Inj) 50 mcg NOW STAT IV 07/30/16 15:05 07/30/16 15:07 DC 07/30/16 15:29 50 MCG Levalbuterol (Xopenex 1.25MG/ 3ML Neb) 1.25 mg NOW STAT INH 07/30/16 15:05 07/30/16 15:07 DC 07/30/16 15:05 1.25 MG Piperacillin Sod/ Tazobactam Sod 4.5 gm 4.5 gm NOW STAT IV 07/30/16 16:18 07/30/16 16:22 DC 07/30/16 17:00 4.5 GM Vancomycin HCl/ Sodium Chloride (Vancomycin Inj/ Nss 500ml) 530 ml @ 200 mls/hr ONE STAT IV 07/30/16 16:18 07/30/16 18:56 DC 07/30/16 17:45 200 MLS/HR Levofloxacin 750 mg 750 mg NOW STAT IV 07/30/16 16:18 07/30/16 16:22 DC 07/30/16 17:45 750 MG Sodium Chloride 1,000 ml @ 125 mls/hr Q8H STAT IV 07/30/16 17:23 07/30/16 21:02 DC 07/30/16 18:49 125 MLS/HR Sodium Chloride (Nss 500ml) 500 ml @ 999 mls/hr Q31M STAT IV 07/30/16 17:23 07/30/16 17:53 DC 07/30/16 18:04 999 MLS/HR Fentanyl Citrate (Fentanyl Inj) 50 mcg NOW STAT IV 07/30/16 18:35 07/30/16 18:37 DC 07/30/16 18:49 50 MCG Fentanyl (Duragesic Patch) 100 mcg Q72H TD 07/30/16 21:00 07/30/16 21:33 DC 2/19/17 21:05 100 MCG Folic Acid (Folvite Tab) 1 mg DAILY PO 07/31/16 08:00 08/30/16 08:59 08/01/16 09:01 1 MG Lorazepam (Ativan Tab) 1 mg HS PO 07/30/16 21:00 08/29/16 20:59 07/31/16 20:33 1 MG Magnesium Oxide (Mag-Ox Tab) 400 mg Q12 PO 07/30/16 21:00 08/29/16 20:59 08/01/16 09:03 400 MG Polyethylene (Miralax Powder Packet) 17 gm DAILY PO 07/31/16 08:00 08/30/16 08:59 08/01/16 09:01 17 GM Senna/Docusate Sodium (Senokot S Tab) 2 tab DAILY PO 07/31/16 08:00 08/30/16 08:59 08/01/16 09:02 2 TAB Pantoprazole Sodium (Protonix Tab) 40 mg QAM PO 07/31/16 08:00 08/30/16 08:59 08/01/16 09:02 40 MG Miscellaneous Information (Check Fentanyl Patch Placement) 1 ea QS N/A 07/31/16 00:00 08/30/16 00:00 08/01/16 07:48 1 EA Ondansetron HCl (Zofran Inj) 4 mg Q6H PRN IV 07/30/16 19:00 08/29/16 18:59 07/30/16 21:03 4 MG Morphine Sulfate 4 mg 4 mg Q2H PRN IV 07/30/16 19:00 08/13/16 18:59 07/30/16 21:03 4 MG Methylprednisolone Sodium Succinate/ Syringe (Solu-Medrol IV/ Syringe) 0.96 ml @ 1.5 mls/min Q6H IV 07/30/16 22:00 08/29/16 21:59 08/01/16 03:32 1.5 MLS/MIN Guaifenesin 600 mg 600 mg BID PO 07/30/16 20:34 08/29/16 20:59 08/01/16 09:02 600 MG Sodium Chloride (Nss 1000ml) 1,000 ml @ 125 mls/hr Q8H IV 07/30/16 21:15 08/29/16 17:22 08/01/16 05:14 125 MLS/HR Ipratropium [place] (Atrovent 0.02% 0.5MG/2.5ML Neb) 0.5 mg Q6R INH 07/31/16 03:00 08/30/16 02:59 08/01/16 01:55 0.5 MG Levalbuterol 1.25 mg 1.25 mg Q6R INH 07/31/16 03:00 08/30/16 02:59 08/01/16 01:55 1.25 MG Piperacillin Sod/ Tazobactam Sod 3.375 gm/Dextrose 115 ml @ 28.75 mls/ hr Q8H IV 07/31/16 00:00 08/07/16 00:00 08/01/16 09:00 28.75 MLS/HR Levofloxacin 500 mg/Prmx 100 ml @ 100 mls/hr DAILY@1400 IV 07/31/16 14:00 08/07/16 13:59 07/31/16 14:01 100 MLS/HR Vancomycin HCl 1200 mg/Sodium Chloride 274 ml @ 125 mls/hr Q10H IV 07/31/16 00:00 07/31/16 17:13 DC 07/31/16 10:53 125 MLS/HR Lorazepam/Syringe (Ativan Inj/ Syringe) 1 ml @ 1 mls/min Q4H PRN IV 07/30/16 23:00 08/29/16 22:59 08/01/16 07:46 1 MLS/MIN Fentanyl (Duragesic Patch) 50 mcg Q3D@2100 TD 07/30/16 23:50 08/13/16 23:49 07/31/16 00:05 50 MCG Miscellaneous Information (Check Fentanyl Patch Placement) 1 ea QS N/A 07/31/16 08:00 08/30/16 07:59 08/01/16 07:48 1 EA Miscellaneous (Fentanyl Patch Remove & Waste) 1 ea NOW ONCE N/A 07/31/16 09:00 07/31/16 09:01 DC 07/31/16 10:52 1 EA Ketorolac Tromethamine (Toradol Inj) 30 mg NOW STAT IV 07/31/16 17:52 07/31/16 17:58 DC 07/31/16 18:45 30 MG Assessment and Plan Assessment and Plan: This is a 60 year old male with bilateral pleural effusions and altered mental status in the context of malignant mesothelioma. Continuing leukocytosis and altered mental status could be due to either pneumonia or malignancy. Thus far, cultures have not grown anything. Cultures of thoracocentesis may be able to distinguish cause of changes. Malignant mesothelioma with bilateral pleural effusions, pathologic rib fractures -leukocytosis & pleural effusion caused by pneumonia vs. malignancy -Solu-Medrol 60 mg IV every 6 hours -vancomycin IV per renal dosing -levofloxacin 500 mg IV every 24 hours -Zosyn IV -guaifenesin extended release 600 mg by mouth twice a day -Xopenex with Atrovent nebulizer to use every 6 hours while awake and every 2 hours when necessary. -family agreeable to continue with thoracocentesis. Chronic pain syndrome with acute worsening secondary to pathologic rib fractures -pain currently controlled adequately -fentanyl patch 100 to 150g every 72 hours -continue oxycodone at 10 mg by mouth increase from every 4 to every 2 hours when necessary. -morphine sulfate 2-4 mg IV every 2 hours when necessary Constipation -no bm since Sunday -may consider KUB to r/o obstruction -continue miralax, sennakot Possible Jaundice -monitor AST, ALT, alk phos, albumin, INR, bilirubin Anxiety -lorazepam 1 mg by mouth at bedtime to 1 mg by mouth every 4 hours when necessary. GERD -pantoprazole 40 mg by mouth daily. Constipation -Senokot 2 tablets by mouth daily and MiraLAX 17 g by mouth daily.
[2016-08-01] MEDS: LEVOFLOXACIN 500MG / D5W IV SCH (13:47)
--- NOTE | 2016-08-01 15:45 | Pulmonology Progress Note ---
Pulmonary Progress Note Date of Service Aug 01, 2016. Attending Polo Yanez I was able to speak to the patient and his today. Wet a long discussion about his mesothelioma as well as the left-sided pleural effusion. The patient today is having difficulty concentrating but describes no acute changes in his shortness of breath or chest pain. Objective Patient able to complete full sentences showing no signs of increased work of breathing. He was also able to perform multiple maneuvers in the bed and not limited by pain. Vital signs: Stable on 4 L nasal cannula Respiratory: Decreased breath sounds bilaterally greatest on the right hemithorax with dullness a progression of the left lower lobe posterior subsegment Cardiac: Distant heart sounds with S1-S2 Abdomen: Positive bowel sounds soft nontender minimal tenderness right upper quadrant palpation Assessment & Plan 60-year-old gentleman with mesothelioma now increasing left-sided pleural effusion: #1 shortness of breath: At this time the patient is very anxious and not willing to proceed forward with thoracentesis. We did discuss the option of performing a thoracentesis either as an and/or an outpatient. #2 leukocytosis: Patient continues to have leukocytosis on broad-spectrum antibiotics. At this time I will increase his Levaquin to 750 mg for better atypical coverage such as Mycobacterium. Also discussed with the patient and his family about hidden infections within the pleura itself but they continue to one to hold off on any active intervention such as thoracentesis at this time. #3 pleurisy: Patient's pleurisy has not change of the last 24 hours will continue Toradol at this time. Also discussed pleurisy with the patient and his and they note that the Duragesic fentanyl patch as well as ibuprofen have been the best sources of pain relief for the patient. Data Medications: Current Inpatient Medications Medications (Trade) Dose Ordered Sig/Chao Route Start Time Stop Time Status Last Admin Dose Admin Ioversol (Optiray 320) 125 ml UD PRN IV 07/30/16 16:45 08/03/16 16:44 Folic Acid (Folvite Tab) 1 mg DAILY PO 07/31/16 08:00 08/30/16 08:59 07/31/16 08:35 1 MG Lorazepam (Ativan Tab) 1 mg HS PO 07/30/16 21:00 08/29/16 20:59 07/31/16 20:33 1 MG Magnesium Oxide (Mag-Ox Tab) 400 mg Q12 PO 07/30/16 21:00 08/29/16 20:59 07/31/16 20:34 400 MG Polyethylene (Miralax Powder Packet) 17 gm DAILY PO 07/31/16 08:00 08/30/16 08:59 07/31/16 08:35 17 GM Promethazine HCl (Phenergan Tab) 25 mg Q6H PRN PO 07/30/16 19:00 08/29/16 18:59 Senna/Docusate Sodium (Senokot S Tab) 2 tab DAILY PO 07/31/16 08:00 08/30/16 08:59 07/31/16 08:35 2 TAB Pantoprazole Sodium (Protonix Tab) 40 mg QAM PO 07/31/16 08:00 08/30/16 08:59 07/31/16 08:35 40 MG Miscellaneous (Fentanyl Patch Remove & Waste) 1 ea Q3D N/A 08/02/16 21:00 09/01/16 20:59 Miscellaneous Information (Check Fentanyl Patch Placement) 1 ea QS N/A 07/31/16 00:00 08/30/16 00:00 08/01/16 07:48 1 EA Acetaminophen (Tylenol Tab) 650 mg Q4H PRN PO 07/30/16 19:00 08/29/16 18:59 Magnesium Hydroxide (Milk Of Magnesia Susp) 30 ml Q6H PRN PO 07/30/16 19:00 08/29/16 18:59 Diphenhydramine HCl (Benadryl Inj) 25 mg Q4H PRN IV 07/30/16 19:00 08/29/16 18:59 Al Hydrox/Mg Hydrox/ Simethicone 15 ml 15 ml Q4H PRN PO 07/30/16 19:00 08/29/16 18:59 Promethazine HCl/ Sodium Chloride (Phenergan Inj/ Nss 50ml) 50.5 ml @ 202 mls/hr Q4H PRN IV 07/30/16 19:00 08/29/16 18:59 Zolpidem Tartrate (Ambien Tab) 5 mg HSZ PRN PO 07/30/16 19:00 08/29/16 18:59 Ondansetron HCl (Zofran Inj) 4 mg Q6H PRN IV 07/30/16 19:00 08/29/16 18:59 07/30/16 21:03 4 MG Morphine Sulfate (MoRPHine SULFATE INJ) 2 mg Q2H PRN IV 07/30/16 19:00 08/13/16 18:59 Morphine Sulfate 4 mg 4 mg Q2H PRN IV 07/30/16 19:00 08/13/16 18:59 07/30/16 21:03 4 MG Methylprednisolone Sodium Succinate/ Syringe (Solu-Medrol IV/ Syringe) 0.96 ml @ 1.5 mls/min Q6H IV 07/30/16 22:00 08/29/16 21:59 08/01/16 10:41 1.5 MLS/MIN Guaifenesin 600 mg 600 mg BID PO 07/30/16 20:34 08/29/16 20:59 07/31/16 20:34 600 MG Sodium Chloride (Nss 1000ml) 1,000 ml @ 125 mls/hr Q8H IV 07/30/16 21:15 08/29/16 17:22 08/01/16 13:11 125 MLS/HR Ipratropium [place] (Atrovent 0.02% 0.5MG/2.5ML Neb) 0.5 mg Q6R INH 07/31/16 03:00 08/30/16 02:59 08/01/16 14:00 0.5 MG Levalbuterol (Xopenex 1.25MG/ 0.5ML Neb) 1.25 mg Q6R INH 07/31/16 03:00 08/30/16 02:59 08/01/16 14:01 1.25 MG Ipratropium [place] (Atrovent 0.02% 0.5MG/2.5ML Neb) 0.5 mg Q2H PRN INH 07/30/16 21:15 08/29/16 21:14 Levalbuterol 1.25 mg 1.25 mg Q2H PRN INH 07/30/16 21:15 08/29/16 21:14 Piperacillin Sod/ Tazobactam Sod/ Dextrose (Zosyn Iv/D5 100ml) 115 ml @ 28.75 mls/ hr Q8H IV 07/31/16 00:00 08/07/16 00:00 08/01/16 09:00 28.75 MLS/HR Piperacillin Sod/ Tazobactam Sod 1 ea 1 ea UD PRN N/A 07/30/16 21:15 08/29/16 21:14 Levofloxacin 500 mg/Prmx 100 ml @ 100 mls/hr DAILY@1400 IV 07/31/16 14:00 08/05/16 14:59 08/01/16 13:47 100 MLS/HR Lorazepam/Syringe (Ativan Inj/ Syringe) 1 ml @ 1 mls/min Q4H PRN IV 07/30/16 23:00 08/29/16 22:59 08/01/16 07:46 1 MLS/MIN Fentanyl (Duragesic Patch) 50 mcg Q3D@2100 TD 07/30/16 23:50 08/13/16 23:49 07/31/16 00:05 50 MCG Miscellaneous (Fentanyl Patch Remove & Waste) 1 ea Q3D@2059 N/A 08/02/16 20:59 09/01/16 20:58 Miscellaneous Information (Check Fentanyl Patch Placement) 1 ea QS N/A 07/31/16 08:00 08/30/16 07:59 08/01/16 07:48 1 EA Fentanyl (Duragesic Patch) 100 mcg Q3D@2100 TD 08/02/16 21:00 08/16/16 20:59 Ketorolac Tromethamine (Toradol Inj) 15 mg Q6H PRN IV 08/01/16 00:00 08/03/16 00:00 I & O: 24-Hour Column 08/01/16 07:59 Intake Total 2299 ml Balance 2299 ml Vital Signs: Date Time Temp Pulse Resp B/P Pulse Ox O2 Delivery O2 Flow Rate FiO2 08/01/16 14:01 93 18 96 Nasal Cannula 4.0 08/01/16 12:08 36.2 90 18 105/64 96 Nasal Cannula 4.0 08/01/16 08:30 93 Nasal Cannula 4.0 08/01/16 08:02 36.4 93 18 111/70 93 Nasal Cannula 4.0 08/01/16 07:18 87 18 96 Nasal Cannula 4.0 08/01/16 01:55 102 14 94 Nasal Cannula 4.0 08/01/16 00:00 Nasal Cannula 4.0 07/31/16 23:44 36.3 107 18 111/72 98 Nasal Cannula 3.5 07/31/16 20:00 Nasal Cannula 4.0 07/31/16 19:55 100 18 96 Nasal Cannula 4.0 07/31/16 16:30 97 Nasal Cannula 4.0 Laboratory Results: Last 24 Hours Test 08/01/16 05:22 White Blood Count 15.23 K/uL Red Blood Count 2.39 M/uL Hemoglobin 7.7 g/dL Hematocrit 22.9 % Mean Corpuscular Volume 95.8 fL Mean Corpuscular Hemoglobin 32.2 pg Mean Corpuscular Hemoglobin Concent 33.6 g/dl Platelet Count 201 K/uL Mean Platelet Volume 9.4 fL Neutrophils (%) (Auto) 92.5 % Lymphocytes (%) (Auto) 3.0 % Monocytes (%) (Auto) 4.1 % Eosinophils (%) (Auto) 0.1 % Basophils (%) (Auto) 0.0 % Neutrophils # (Auto) 14.08 K/uL Lymphocytes # (Auto) 0.46 K/uL Monocytes # (Auto) 0.63 K/uL Eosinophils # (Auto) 0.01 K/uL Basophils # (Auto) 0.00 K/uL RDW Standard Deviation 74.2 fL RDW Coefficient of Variation 21.4 % Immature Granulocyte % (Auto) 0.3 % Immature Granulocyte # (Auto) 0.05 K/uL Polychromasia 1+ Anisocytosis PRESENT Prothrombin Time 14.2 SECONDS Prothromb Time International Ratio 1.3 Activated Partial Thromboplast Time 27.8 SECONDS Partial Thromboplastin Ratio 1.1 Sodium Level 142 mmol/L Potassium Level 3.4 mmol/L Chloride Level 104 mmol/L Carbon Dioxide Level 29 mmol/L Anion Gap 9.0 mmol/L Blood Urea Nitrogen 18 mg/dl Creatinine 0.82 mg/dl Est Creatinine Clear Calc Drug Dose 90.3 ml/min Estimated GFR () 109.8 Estimated GFR (Non- 94.8 BUN/Creatinine Ratio 22.0 Random Glucose 147 mg/dl Calcium Level 7.7 mg/dl Magnesium Level 2.2 mg/dl Total Bilirubin 0.3 mg/dl Direct Bilirubin 0.1 mg/dl Aspartate Amino Transf (AST/SGOT) 14 U/L Alanine Aminotransferase (ALT/SGPT) 16 U/L Alkaline Phosphatase 78 U/L Total Protein 5.6 gm/dl Albumin 1.9 gm/dl
[2016-08-01] MEDS: KETOROLAC TROMETHAMINE 15 MG/ML VIAL IV PRN (16:39)
[2016-08-01] MEDS: LORAZEPAM 1 MG TAB PO SCH (20:14)
--- NOTE | 2016-08-01 20:44 | Progress Note ---
Subjective Subjective Date of Service: Aug 01, 2016. Pt evaluation today including: conversation w/ patient, physical exam, chart review, review of studies, conversation w/ reservoir engineering consultant (Curtis), review of inpatient medication list Problem List Medical Problems: (1) Fracture of rib of right side Status: Acute (2) Lumbago Status: Chronic (3) Mesothelioma Status: Chronic (4) Pleuritic chest pain Status: Acute (5) Reflux Esophagitis Status: Chronic (6) Right lower lobe lung mass Status: Acute (7) Sepsis Status: Acute Review of Systems Constitutional: No fever ENT: No hearing loss Respiratory: No cough Cardiac: No chest pain Abdomen: No pain Male : No dysuria Neurologic: No memory loss Psychiatric: No depression symptoms Heme: No abnormal bleeding/bruising Physical Exam Vital Signs Vital Signs Past 24 Hours: Date Time Temp Pulse Resp B/P Pulse Ox O2 Delivery O2 Flow Rate FiO2 08/01/16 19:21 103 18 93 Nasal Cannula 3.0 08/01/16 16:30 Nasal Cannula 4.0 08/01/16 16:17 36.5 99 18 100/65 91 Nasal Cannula 3.0 08/01/16 14:01 93 18 96 Nasal Cannula 4.0 08/01/16 12:08 36.2 90 18 105/64 96 Nasal Cannula 4.0 08/01/16 08:30 93 Nasal Cannula 4.0 08/01/16 08:02 36.4 93 18 111/70 93 Nasal Cannula 4.0 08/01/16 07:18 87 18 96 Nasal Cannula 4.0 08/01/16 01:55 102 14 94 Nasal Cannula 4.0 08/01/16 00:00 Nasal Cannula 4.0 07/31/16 23:44 36.3 107 18 111/72 98 Nasal Cannula 3.5 Physical Exam: General Appearance: WD/WN, no apparent distress Eyes: bilateral eyes normal inspection ENT: hearing grossly normal Neck: supple Respiratory/Chest: + decreased breath sounds Cardiovascular: regular rate, rhythm Abdomen: normal bowel sounds Extremities: normal range of motion Neurologic/Psychiatric: alert Skin: normal color Medications Medications: Current Inpatient Medications Medications (Trade) Dose Ordered Sig/Chao Route Start Time Stop Time Status Last Admin Dose Admin Ioversol (Optiray 320) 125 ml UD PRN IV 07/30/16 16:45 2/23/17 16:44 Folic Acid (Folvite Tab) 1 mg DAILY PO 07/31/16 08:00 08/30/16 08:59 07/31/16 08:35 1 MG Lorazepam (Ativan Tab) 1 mg HS PO 07/30/16 21:00 08/29/16 20:59 08/01/16 20:14 1 MG Magnesium Oxide (Mag-Ox Tab) 400 mg Q12 PO 07/30/16 21:00 08/29/16 20:59 08/01/16 20:14 400 MG Polyethylene (Miralax Powder Packet) 17 gm DAILY PO 07/31/16 08:00 08/30/16 08:59 07/31/16 08:35 17 GM Promethazine HCl (Phenergan Tab) 25 mg Q6H PRN PO 07/30/16 19:00 08/29/16 18:59 Senna/Docusate Sodium (Senokot S Tab) 2 tab DAILY PO 07/31/16 08:00 08/30/16 08:59 07/31/16 08:35 2 TAB Pantoprazole Sodium (Protonix Tab) 40 mg QAM PO 07/31/16 08:00 08/30/16 08:59 07/31/16 08:35 40 MG Miscellaneous (Fentanyl Patch Remove & Waste) 1 ea Q3D N/A 08/02/16 21:00 09/01/16 20:59 Miscellaneous Information (Check Fentanyl Patch Placement) 1 ea QS N/A 07/31/16 00:00 08/30/16 00:00 08/01/16 16:22 1 EA Acetaminophen (Tylenol Tab) 650 mg Q4H PRN PO 07/30/16 19:00 08/29/16 18:59 Magnesium Hydroxide (Milk Of Magnesia Susp) 30 ml Q6H PRN PO 07/30/16 19:00 08/29/16 18:59 Diphenhydramine HCl (Benadryl Inj) 25 mg Q4H PRN IV 07/30/16 19:00 08/29/16 18:59 Al Hydrox/Mg Hydrox/ Simethicone 15 ml 15 ml Q4H PRN PO 07/30/16 19:00 08/29/16 18:59 08/01/16 18:35 15 ML Promethazine HCl/ Sodium Chloride (Phenergan Inj/ Nss 50ml) 50.5 ml @ 202 mls/hr Q4H PRN IV 07/30/16 19:00 08/29/16 18:59 Zolpidem Tartrate (Ambien Tab) 5 mg HSZ PRN PO 07/30/16 19:00 08/29/16 18:59 Ondansetron HCl (Zofran Inj) 4 mg Q6H PRN IV 07/30/16 19:00 08/29/16 18:59 07/30/16 21:03 4 MG Morphine Sulfate (MoRPHine SULFATE INJ) 2 mg Q2H PRN IV 07/30/16 19:00 08/13/16 18:59 Morphine Sulfate 4 mg 4 mg Q2H PRN IV 07/30/16 19:00 08/13/16 18:59 07/30/16 21:03 4 MG Methylprednisolone Sodium Succinate/ Syringe (Solu-Medrol IV/ Syringe) 0.96 ml @ 1.5 mls/min Q6H IV 07/30/16 22:00 08/29/16 21:59 08/01/16 20:13 1.5 MLS/MIN Guaifenesin 600 mg 600 mg BID PO 07/30/16 20:34 08/29/16 20:59 08/01/16 20:13 600 MG Sodium Chloride (Nss 1000ml) 1,000 ml @ 125 mls/hr Q8H IV 07/30/16 21:15 08/29/16 17:22 08/01/16 20:14 125 MLS/HR Ipratropium [place] (Atrovent 0.02% 0.5MG/2.5ML Neb) 0.5 mg Q6R INH 07/31/16 03:00 08/30/16 02:59 08/01/16 19:21 0.5 MG Levalbuterol (Xopenex 1.25MG/ 0.5ML Neb) 1.25 mg Q6R INH 07/31/16 03:00 08/30/16 02:59 08/01/16 19:21 1.25 MG Ipratropium [place] (Atrovent 0.02% 0.5MG/2.5ML Neb) 0.5 mg Q2H PRN INH 07/30/16 21:15 08/29/16 21:14 Levalbuterol 1.25 mg 1.25 mg Q2H PRN INH 07/30/16 21:15 08/29/16 21:14 Piperacillin Sod/ Tazobactam Sod/ Dextrose (Zosyn Iv/D5 100ml) 115 ml @ 28.75 mls/ hr Q8H IV 07/31/16 00:00 08/07/16 00:00 08/01/16 16:21 28.75 MLS/HR Piperacillin Sod/ Tazobactam Sod 1 ea 1 ea UD PRN N/A 07/30/16 21:15 08/29/16 21:14 Lorazepam/Syringe (Ativan Inj/ Syringe) 1 ml @ 1 mls/min Q4H PRN IV 07/30/16 23:00 08/29/16 22:59 08/01/16 07:46 1 MLS/MIN Fentanyl (Duragesic Patch) 50 mcg Q3D@2100 TD 07/30/16 23:50 08/13/16 23:49 07/31/16 00:05 50 MCG Miscellaneous (Fentanyl Patch Remove & Waste) 1 ea Q3D@2059 N/A 08/02/16 20:59 09/01/16 20:58 Miscellaneous Information (Check Fentanyl Patch Placement) 1 ea QS N/A 07/31/16 08:00 08/30/16 07:59 08/01/16 16:23 1 EA Fentanyl (Duragesic Patch) 100 mcg Q3D@2100 TD 08/02/16 21:00 08/16/16 20:59 Ketorolac Tromethamine 15 mg 15 mg Q6H PRN IV 08/01/16 00:00 08/03/16 00:00 08/01/16 16:39 15 MG Levofloxacin/Prmx (Levaquin / D5W/ Premixed D5W) 150 ml @ 100 mls/hr DAILY@1400 IV 08/02/16 14:00 08/05/16 14:01 Laboratory Data Labs: Last 24 Hours Test 08/01/16 05:22 White Blood Count 15.23 K/uL Red Blood Count 2.39 M/uL Hemoglobin 7.7 g/dL Hematocrit 22.9 % Mean Corpuscular Volume 95.8 fL Mean Corpuscular Hemoglobin 32.2 pg Mean Corpuscular Hemoglobin Concent 33.6 g/dl Platelet Count 201 K/uL Mean Platelet Volume 9.4 fL Neutrophils (%) (Auto) 92.5 % Lymphocytes (%) (Auto) 3.0 % Monocytes (%) (Auto) 4.1 % Eosinophils (%) (Auto) 0.1 % Basophils (%) (Auto) 0.0 % Neutrophils # (Auto) 14.08 K/uL Lymphocytes # (Auto) 0.46 K/uL Monocytes # (Auto) 0.63 K/uL Eosinophils # (Auto) 0.01 K/uL Basophils # (Auto) 0.00 K/uL RDW Standard Deviation 74.2 fL RDW Coefficient of Variation 21.4 % Immature Granulocyte % (Auto) 0.3 % Immature Granulocyte # (Auto) 0.05 K/uL Polychromasia 1+ Anisocytosis PRESENT Prothrombin Time 14.2 SECONDS Prothromb Time International Ratio 1.3 Activated Partial Thromboplast Time 27.8 SECONDS Partial Thromboplastin Ratio 1.1 Sodium Level 142 mmol/L Potassium Level 3.4 mmol/L Chloride Level 104 mmol/L Carbon Dioxide Level 29 mmol/L Anion Gap 9.0 mmol/L Blood Urea Nitrogen 18 mg/dl Creatinine 0.82 mg/dl Est Creatinine Clear Calc Drug Dose 90.3 ml/min Estimated GFR () 109.8 Estimated GFR (Non- 94.8 BUN/Creatinine Ratio 22.0 Random Glucose 147 mg/dl Calcium Level 7.7 mg/dl Magnesium Level 2.2 mg/dl Total Bilirubin 0.3 mg/dl Direct Bilirubin 0.1 mg/dl Aspartate Amino Transf (AST/SGOT) 14 U/L Alanine Aminotransferase (ALT/SGPT) 16 U/L Alkaline Phosphatase 78 U/L Total Protein 5.6 gm/dl Albumin 1.9 gm/dl Assessment and Plan A 60 yo male comes with Malignant mesothelioma with bilateral pneumonia, pleural effusions, pathologic rib fractures--the patient will be admitted to the oncology unit. continue Solu-Medrol 60 mg IV every 6 hours, vancomycin IV per renal dosing, levofloxacin 750 mg IV every 24 hours, guaifenesin extended release 600 mg by mouth twice a day, and Xopenex with Atrovent nebulizer to use every 6 hours while awake and every 2 hours when necessary. Known to Dr Jensen and Dr Landin, has appt at [facility] Oncology, no chemoTx now due to pneumonia Pleural effusion, parapneumonic vs malignant effusion sec to mesothelioma, consulted pulmonary for possible thoracentesis, however patient is refusing it Chronic pain syndrome with acute worsening secondary to pathologic rib fractures continue fentanyl patch 100 to 150g every 72 hours, and continue oxycodone at 10 mg by mouth increase from every 4 to every 2 hours when necessary. morphine sulfate 2-4 mg IV every 2 hours when necessary Anxiety lorazepam 1 mg by mouth at bedtime to 1 mg by mouth every 4 hours when necessary. GERD pantoprazole 40 mg by mouth daily. Constipation continue Senokot 2 tablets by mouth daily and MiraLAX 17 g by mouth daily. will consider palliative care consult regarding possible home hospice will need to address code status, may need to consult palliative care if continue to refuse thoracentesis
[2016-08-02] MEDS: IPRATROPIUM BROMIDE NEB SOLN 0.02% 2.5 ML VIAL INH SCH ×4 (02:46→19:05)
[2016-08-02] MEDS: LEVALBUTEROL 1.25MG/0.5ML NEB INH SCH ×4 (02:46→19:05)
[2016-08-02] MEDS: METHYLPREDNISOLONE IV 60 MG in SYRINGE 0 ML IV SCH ×3 (03:18→16:14)
[2016-08-02] MEDS: SODIUM CHLORIDE 0.9% 1000ML 1,000 ML IV SCH ×2 (03:19→14:07)
[2016-08-02] MEDS: LORAZEPAM INJ 1 MG in SYRINGE 0.5 ML IV PRN ×2 (03:19→08:36)
[2016-08-02 07:00] LABS: BASO % 0.1 %; BASO ABS # 0.01 K/uL (0-0.2); EOS % 0.1 %; HEMATOCRIT 25.7 % (42-52); IG% 0.6 %; LYMPH % 4.4 %; LYMPH ABS # 0.66 K/uL (1.2-3.4); MEAN CELL VOLUME 99.2 fL (80-100); MEAN CORPUSCULAR HEMOGLOBIN 32.4 pg (25-34); MEAN CORPUSCULAR HGB CONC 32.7 g/dl (32-36); MEAN PLATELET VOLUME 9.3 fL (7.4-10.4); MONO % 1.1 %; NEUT % 93.7 %; PLATELET COUNT 220 K/uL (130-400); RED BLOOD COUNT 2.59 M/uL (4.7-6.1); WHITE BLOOD COUNT 15.05 K/uL (4.8-10.8)
[2016-08-02 07:08] LABS: INR 1.2 (0.9-1.1); PROTHROMBIN TIME (PATIENT) 12.8 SECONDS (9.0-12.0)
[2016-08-02 07:24] LABS: ANISOCYTOSIS PRESENT; COMPLETE YES
[2016-08-02 07:30] VITALS: BP 108/72; PULSE 83; TEMP 36.6; O2SAT 96
[2016-08-02 07:36] LABS: ALT/SGPT 21 U/L (12-78); AST/SGOT 15 U/L (15-37); BLOOD UREA NITROGEN 17 mg/dl (7-18); BUN/CREATININE RATIO 22.5 (10-20); CALCIUM 7.7 mg/dl (8.5-10.1); CARBON DIOXIDE 28 mmol/L (21-32); CHLORIDE 105 mmol/L (98-107); CREATININE 0.76 mg/dl (0.60-1.40); GLUCOSE 136 mg/dl (70-99); MAGNESIUM 2.4 mg/dl (1.8-2.4); POTASSIUM 3.7 mmol/L (3.5-5.1); SODIUM 142 mmol/L (136-145)
[2016-08-02 07:39] LABS: ALKALINE PHOSPHATASE 83 U/L (45-117)
[2016-08-02] MEDS: PIPERACILL/TAZOBAC IV 3.375 GM in DEXTROSE 5% 100ML IV SCH ×3 (08:00→23:28)
[2016-08-02] MEDS: PANTOprazole SOD 40 MG TAB PO SCH (08:19)
[2016-08-02] MEDS: GUAIFENESIN 200 MG TAB PO SCH ×2 (08:20→20:36)
[2016-08-02] MEDS: DOCUSATE SODIUM/SENNA 50/8.6MG TAB PO SCH (08:22)
[2016-08-02 08:33] VITALS: PULSE 88; O2SAT 94
[2016-08-02] MEDS: CHECK FENTANYL PATCH PLACEMENT SCH ×6 (08:35→23:36)
[2016-08-02] MEDS: MAGNESIUM OXIDE 400 MG TAB PO SCH ×2 (08:38→20:35)
[2016-08-02] MEDS: POLYETHYLENE (MIRALAX) 17 GM PACK PO SCH (08:39)
--- NOTE | 2016-08-02 10:44 | Medical Student: [facility] ---
Med Student Progress Note Date of Service Aug 02, 2016. Subjective Pt evaluation today including: conversation w/ patient, conversation w/ family , physical exam, chart review, lab review Patient is 60 year old male who presented with AMS and increasing SOB in the context of advanced mesothelioma, sarcomatoid type. Patient is oriented to person but not place or time. Per his family they do not think his mental status has improved since yesterday. He was able to eat breakfast this morning. He complains of pain especially on his right side, and overall seems fairly aware of his current condition. He was given ativan earlier in the AM due to agitation. His blood cultures continue to demonstrate no growth, however his leukocytosis is still trending at 15. He still has not had a bowel movement and is starting to complain of mild discomfort in the abdomen. After speaking with the family they would like to proceed with thoracocentesis, but would like to understand more in-depth what possible complications may be. They also are concerned about how easily agitated he has been, and wonder if the procedure could be done under sedation. They also are aware that they likely will not be able to get him to [place] on Sunday for his mesothelioma specialist appointment. We discussed what their goals of this hospitalization might be, and they state that the biggest concern they have is his continuously altered mental state. They would not feel comfortable taking him home until the source of his AMS is understood. Furthermore, the patient refused thoracocentesis yesterday, and they are concerned that he does not have the full capacity to make medical decisions at this time. The family has an advance directive and power of securities attorney in place. The paperwork is in their room if needed to be reviewed. Review of Systems Cardiac: + chest pain Abdomen: + constipation Notes: Limited ROS due to patients mental state Objective Vital Signs Date Time Temp Pulse Resp B/P Pulse Ox O2 Delivery O2 Flow Rate FiO2 08/02/16 08:33 88 18 94 Nasal Cannula 3.0 08/02/16 07:30 36.6 83 20 108/72 96 Nasal Cannula 4.0 08/02/16 00:00 Nasal Cannula 4.0 08/01/16 23:25 36.3 90 18 108/64 95 Nasal Cannula 3.0 08/01/16 20:00 Nasal Cannula 4.0 08/01/16 19:21 103 18 93 Nasal Cannula 3.0 08/01/16 16:30 Nasal Cannula 4.0 08/01/16 16:17 36.5 99 18 100/65 91 Nasal Cannula 3.0 08/01/16 14:01 93 18 96 Nasal Cannula 4.0 08/01/16 12:08 36.2 90 18 105/64 96 Nasal Cannula 4.0 Physical Exam General Appearance: WD/WN, no apparent distress Eyes: right eye pertinent finding (Ptosis still present) Neck: supple, no adenopathy, thyroid normal Respiratory/Chest: + decreased breath sounds, + crackles (right middle lobe), + pertinent finding (pain on touch on right side ) Cardiovascular: + pertinent finding (edema b/l lower extremities. R>L) Abdomen: normal bowel sounds, non tender, soft, no organomegaly Extremities: normal range of motion, non-tender, normal inspection, + pedal edema Neurologic/Psychiatric: + disoriented, + pertinent finding (oriented to person) Skin: normal color, warm/dry, no rash Lymphatic: no adenopathy Laboratory Results Last 24 Hours Test 08/02/16 06:35 White Blood Count 15.05 K/uL Red Blood Count 2.59 M/uL Hemoglobin 8.4 g/dL Hematocrit 25.7 % Mean Corpuscular Volume 99.2 fL Mean Corpuscular Hemoglobin 32.4 pg Mean Corpuscular Hemoglobin Concent 32.7 g/dl Platelet Count 220 K/uL Mean Platelet Volume 9.3 fL Neutrophils (%) (Auto) 93.7 % Lymphocytes (%) (Auto) 4.4 % Monocytes (%) (Auto) 1.1 % Eosinophils (%) (Auto) 0.1 % Basophils (%) (Auto) 0.1 % Neutrophils # (Auto) 14.12 K/uL Lymphocytes # (Auto) 0.66 K/uL Monocytes # (Auto) 0.16 K/uL Eosinophils # (Auto) 0.01 K/uL Basophils # (Auto) 0.01 K/uL RDW Standard Deviation 79.4 fL RDW Coefficient of Variation 22.7 % Immature Granulocyte % (Auto) 0.6 % Immature Granulocyte # (Auto) 0.09 K/uL Nucleated RBC Absolute Count (auto) 0.02 K/uL Nucleated Red Blood Cells % 0.1 % Anisocytosis PRESENT Prothrombin Time 12.8 SECONDS Prothromb Time International Ratio 1.2 Activated Partial Thromboplast Time 25.0 SECONDS Partial Thromboplastin Ratio 1.0 Sodium Level 142 mmol/L Potassium Level 3.7 mmol/L Chloride Level 105 mmol/L Carbon Dioxide Level 28 mmol/L Anion Gap 9.0 mmol/L Blood Urea Nitrogen 17 mg/dl Creatinine 0.76 mg/dl Est Creatinine Clear Calc Drug Dose 97.5 ml/min Estimated GFR () 113.3 Estimated GFR (Non- 97.8 BUN/Creatinine Ratio 22.5 Random Glucose 136 mg/dl Calcium Level 7.7 mg/dl Magnesium Level 2.4 mg/dl Total Bilirubin 0.3 mg/dl Direct Bilirubin < 0.1 mg/dl Aspartate Amino Transf (AST/SGOT) 15 U/L Alanine Aminotransferase (ALT/SGPT) 21 U/L Alkaline Phosphatase 83 U/L Total Protein 5.9 gm/dl Albumin 2.0 gm/dl Medications Medications Administered Medications (Trade) Dose Ordered Sig/Chao Route Start Time Stop Time Status Last Admin Dose Admin Fentanyl Citrate (Fentanyl Inj) 50 mcg NOW STAT IV 07/30/16 15:05 07/30/16 15:07 DC 07/30/16 15:29 50 MCG Levalbuterol (Xopenex 1.25MG/ 3ML Neb) 1.25 mg NOW STAT INH 07/30/16 15:05 07/30/16 15:07 DC 07/30/16 15:05 1.25 MG Piperacillin Sod/ Tazobactam Sod 4.5 gm 4.5 gm NOW STAT IV 07/30/16 16:18 07/30/16 16:22 DC 07/30/16 17:00 4.5 GM Vancomycin HCl/ Sodium Chloride (Vancomycin Inj/ Nss 500ml) 530 ml @ 200 mls/hr ONE STAT IV 07/30/16 16:18 07/30/16 18:56 DC 07/30/16 17:45 200 MLS/HR Levofloxacin 750 mg 750 mg NOW STAT IV 07/30/16 16:18 07/30/16 16:22 DC 07/30/16 17:45 750 MG Sodium Chloride 1,000 ml @ 125 mls/hr Q8H STAT IV 07/30/16 17:23 07/30/16 21:02 DC 07/30/16 18:49 125 MLS/HR Sodium Chloride (Nss 500ml) 500 ml @ 999 mls/hr Q31M STAT IV 07/30/16 17:23 07/30/16 17:53 DC 07/30/16 18:04 999 MLS/HR Fentanyl Citrate (Fentanyl Inj) 50 mcg NOW STAT IV 07/30/16 18:35 07/30/16 18:37 DC 07/30/16 18:49 50 MCG Fentanyl (Duragesic Patch) 100 mcg Q72H TD 07/30/16 21:00 07/30/16 21:33 DC 07/30/16 21:05 100 MCG Folic Acid (Folvite Tab) 1 mg DAILY PO 07/31/16 08:00 08/30/16 08:59 08/02/16 08:19 1 MG Lorazepam (Ativan Tab) 1 mg HS PO 07/30/16 21:00 08/29/16 20:59 08/01/16 20:14 1 MG Magnesium Oxide (Mag-Ox Tab) 400 mg Q12 PO 07/30/16 21:00 08/29/16 20:59 08/02/16 08:38 400 MG Polyethylene (Miralax Powder Packet) 17 gm DAILY PO 07/31/16 08:00 08/30/16 08:59 08/02/16 08:39 17 GM Senna/Docusate Sodium (Senokot S Tab) 2 tab DAILY PO 07/31/16 08:00 08/30/16 08:59 08/02/16 08:22 2 TAB Pantoprazole Sodium (Protonix Tab) 40 mg QAM PO 07/31/16 08:00 08/30/16 08:59 08/02/16 08:19 40 MG Miscellaneous Information (Check Fentanyl Patch Placement) 1 ea QS N/A 07/31/16 00:00 08/30/16 00:00 08/02/16 08:35 1 EA Al Hydrox/Mg Hydrox/Simethicone (Maalox Max Susp) 15 ml Q4H PRN PO 07/30/16 19:00 08/29/16 18:59 08/01/16 18:35 15 ML Ondansetron HCl (Zofran Inj) 4 mg Q6H PRN IV 07/30/16 19:00 08/29/16 18:59 07/30/16 21:03 4 MG Morphine Sulfate 4 mg 4 mg Q2H PRN IV 07/30/16 19:00 08/13/16 18:59 07/30/16 21:03 4 MG Methylprednisolone Sodium Succinate/ Syringe (Solu-Medrol IV/ Syringe) 0.96 ml @ 1.5 mls/min Q6H IV 07/30/16 22:00 08/29/16 21:59 08/02/16 03:18 1.5 MLS/MIN Guaifenesin 600 mg 600 mg BID PO 07/30/16 20:34 08/29/16 20:59 08/02/16 08:20 600 MG Sodium Chloride (Nss 1000ml) 1,000 ml @ 125 mls/hr Q8H IV 07/30/16 21:15 08/29/16 17:22 08/02/16 03:19 125 MLS/HR Ipratropium Golden (Atrovent 0.02% 0.5MG/2.5ML Neb) 0.5 mg Q6R INH 07/31/16 03:00 08/30/16 02:59 08/02/16 08:32 0.5 MG Levalbuterol 1.25 mg 1.25 mg Q6R INH 07/31/16 03:00 08/30/16 02:59 08/02/16 08:32 1.25 MG Piperacillin Sod/ Tazobactam Sod 3.375 gm/Dextrose 115 ml @ 28.75 mls/ hr Q8H IV 07/31/16 00:00 08/07/16 00:00 08/02/16 08:00 28.75 MLS/HR Levofloxacin 500 mg/Prmx 100 ml @ 100 mls/hr DAILY@1400 IV 07/31/16 14:00 08/01/16 15:49 DC 08/01/16 13:47 100 MLS/HR Vancomycin HCl 1200 mg/Sodium Chloride 274 ml @ 125 mls/hr Q10H IV 07/31/16 00:00 07/31/16 17:13 DC 07/31/16 10:53 125 MLS/HR Lorazepam/Syringe (Ativan Inj/ Syringe) 1 ml @ 1 mls/min Q4H PRN IV 07/30/16 23:00 08/29/16 22:59 08/02/16 03:19 1 MLS/MIN Fentanyl (Duragesic Patch) 50 mcg Q3D@2100 TD 07/30/16 23:50 08/13/16 23:49 07/31/16 00:05 50 MCG Miscellaneous Information (Check Fentanyl Patch Placement) 1 ea QS N/A 07/31/16 08:00 08/30/16 07:59 08/02/16 08:36 1 EA Miscellaneous (Fentanyl Patch Remove & Waste) 1 ea NOW ONCE N/A 07/31/16 09:00 07/31/16 09:01 DC 07/31/16 10:52 1 EA Ketorolac Tromethamine (Toradol Inj) 30 mg NOW STAT IV 07/31/16 17:52 07/31/16 17:58 DC 07/31/16 18:45 30 MG Ketorolac Tromethamine (Toradol Inj) 15 mg Q6H PRN IV 08/01/16 00:00 08/03/16 00:00 08/01/16 16:39 15 MG Assessment and Plan Assessment and Plan: This is a 60 year old male with bilateral pleural effusions and altered mental status in the context of malignant mesothelioma. Continuing leukocytosis and altered mental status could be due to either pneumonia or malignancy. Thus far, cultures have not grown anything. Malignant mesothelioma with bilateral pleural effusions, pathologic rib fractures -leukocytosis & pleural effusion caused by pneumonia vs. malignancy -family wishes to proceed with thoracocentesis. May need to discuss patient's wishes and ability to make decision. -Solu-Medrol 60 mg IV every 6 hours -vancomycin IV per renal dosing -levofloxacin increased to 750 mg IV every 24 hours -Zosyn IV -guaifenesin extended release 600 mg by mouth twice a day -Xopenex with Atrovent nebulizer to use every 6 hours while awake and every 2 hours when necessary. Altered Mental Status -assessment for decision making capability Chronic pain syndrome with acute worsening secondary to pathologic rib fractures -pain currently controlled adequately -fentanyl patch 100 to 150g every 72 hours -continue oxycodone at 10 mg by mouth increase from every 4 to every 2 hours when necessary. -morphine sulfate 2-4 mg IV every 2 hours when necessary Constipation -no bm since Sunday -may consider KUB to r/o obstruction -continue miralax, sennakot Anxiety -lorazepam 1 mg by mouth at bedtime to 1 mg by mouth every 4 hours when necessary. GERD -pantoprazole 40 mg by mouth daily. Continued [facility] stay due to: multiple IV medications needed
--- NOTE | 2016-08-02 11:22 | Pulmonology Progress Note ---
Pulmonary Progress Note Date of Service Aug 02, 2016. Attending Polo Acevedo Subjective Patient is fatigued and obtunded. Objective obtunded but arousable Vital signs: Stable on 4 L nasal cannula Respiratory: Decreased breath sounds bilaterally greatest on the right hemithorax with dullness a progression of the left lower lobe posterior subsegment Cardiac: Distant heart sounds with S1-S2 Abdomen: Positive bowel sounds soft nontender minimal tenderness right upper quadrant palpation Assessment & Plan 60-year-old gentleman with mesothelioma now increasing left-sided pleural effusion: #1 shortness of breath: the family has decided not to proceed forward with a thoracentesis at this time. They are deciding if they are going to move to hospice care. At this time I will sign off. Data Medications: Current Inpatient Medications Medications (Trade) Dose Ordered Sig/Chao Route Start Time Stop Time Status Last Admin Dose Admin Ioversol (Optiray 320) 125 ml UD PRN IV 07/30/16 16:45 08/03/16 16:44 Folic Acid (Folvite Tab) 1 mg DAILY PO 07/31/16 08:00 08/30/16 08:59 08/02/16 08:19 1 MG Lorazepam (Ativan Tab) 1 mg HS PO 07/30/16 21:00 08/29/16 20:59 08/01/16 20:14 1 MG Magnesium Oxide (Mag-Ox Tab) 400 mg Q12 PO 07/30/16 21:00 08/29/16 20:59 08/02/16 08:38 400 MG Polyethylene (Miralax Powder Packet) 17 gm DAILY PO 07/31/16 08:00 08/30/16 08:59 08/02/16 08:39 17 GM Promethazine HCl (Phenergan Tab) 25 mg Q6H PRN PO 07/30/16 19:00 08/29/16 18:59 Senna/Docusate Sodium (Senokot S Tab) 2 tab DAILY PO 07/31/16 08:00 08/30/16 08:59 08/02/16 08:22 2 TAB Pantoprazole Sodium (Protonix Tab) 40 mg QAM PO 07/31/16 08:00 08/30/16 08:59 08/02/16 08:19 40 MG Miscellaneous (Fentanyl Patch Remove & Waste) 1 ea Q3D N/A 08/02/16 21:00 09/01/16 20:59 Miscellaneous Information (Check Fentanyl Patch Placement) 1 ea QS N/A 07/31/16 00:00 08/30/16 00:00 08/02/16 08:35 1 EA Acetaminophen (Tylenol Tab) 650 mg Q4H PRN PO 07/30/16 19:00 08/29/16 18:59 Magnesium Hydroxide (Milk Of Magnesia Susp) 30 ml Q6H PRN PO 07/30/16 19:00 08/29/16 18:59 Diphenhydramine HCl (Benadryl Inj) 25 mg Q4H PRN IV 07/30/16 19:00 08/29/16 18:59 Al Hydrox/Mg Hydrox/ Simethicone 15 ml 15 ml Q4H PRN PO 07/30/16 19:00 08/29/16 18:59 08/01/16 18:35 15 ML Promethazine HCl/ Sodium Chloride (Phenergan Inj/ Nss 50ml) 50.5 ml @ 202 mls/hr Q4H PRN IV 07/30/16 19:00 08/29/16 18:59 Zolpidem Tartrate (Ambien Tab) 5 mg HSZ PRN PO 07/30/16 19:00 08/29/16 18:59 Ondansetron HCl (Zofran Inj) 4 mg Q6H PRN IV 07/30/16 19:00 08/29/16 18:59 07/30/16 21:03 4 MG Morphine Sulfate (MoRPHine SULFATE INJ) 2 mg Q2H PRN IV 07/30/16 19:00 08/13/16 18:59 Morphine Sulfate 4 mg 4 mg Q2H PRN IV 07/30/16 19:00 08/13/16 18:59 07/30/16 21:03 4 MG Methylprednisolone Sodium Succinate/ Syringe (Solu-Medrol IV/ Syringe) 0.96 ml @ 1.5 mls/min Q6H IV 07/30/16 22:00 08/29/16 21:59 08/02/16 03:18 1.5 MLS/MIN Guaifenesin 600 mg 600 mg BID PO 07/30/16 20:34 08/29/16 20:59 08/02/16 08:20 600 MG Sodium Chloride (Nss 1000ml) 1,000 ml @ 125 mls/hr Q8H IV 07/30/16 21:15 08/29/16 17:22 08/02/16 03:19 125 MLS/HR Ipratropium Alexander (Atrovent 0.02% 0.5MG/2.5ML Neb) 0.5 mg Q6R INH 07/31/16 03:00 08/30/16 02:59 08/02/16 08:32 0.5 MG Levalbuterol (Xopenex 1.25MG/ 0.5ML Neb) 1.25 mg Q6R INH 07/31/16 03:00 08/30/16 02:59 08/02/16 08:32 1.25 MG Ipratropium Alexander (Atrovent 0.02% 0.5MG/2.5ML Neb) 0.5 mg Q2H PRN INH 07/30/16 21:15 08/29/16 21:14 Levalbuterol 1.25 mg 1.25 mg Q2H PRN INH 07/30/16 21:15 08/29/16 21:14 Piperacillin Sod/ Tazobactam Sod/ Dextrose (Zosyn Iv/D5 100ml) 115 ml @ 28.75 mls/ hr Q8H IV 07/31/16 00:00 08/07/16 00:00 08/02/16 08:00 28.75 MLS/HR Piperacillin Sod/ Tazobactam Sod 1 ea 1 ea UD PRN N/A 07/30/16 21:15 08/29/16 21:14 Lorazepam/Syringe (Ativan Inj/ Syringe) 1 ml @ 1 mls/min Q4H PRN IV 07/30/16 23:00 08/29/16 22:59 08/02/16 03:19 1 MLS/MIN Fentanyl (Duragesic Patch) 50 mcg Q3D@2100 TD 07/30/16 23:50 08/13/16 23:49 07/31/16 00:05 50 MCG Miscellaneous (Fentanyl Patch Remove & Waste) 1 ea Q3D@2059 N/A 08/02/16 20:59 09/01/16 20:58 Miscellaneous Information (Check Fentanyl Patch Placement) 1 ea QS N/A 07/31/16 08:00 08/30/16 07:59 08/02/16 08:36 1 EA Fentanyl (Duragesic Patch) 100 mcg Q3D@2100 TD 08/02/16 21:00 08/16/16 20:59 Ketorolac Tromethamine 15 mg 15 mg Q6H PRN IV 08/01/16 00:00 08/03/16 00:00 08/01/16 16:39 15 MG Levofloxacin/Prmx (Levaquin / D5W/ Premixed D5W) 150 ml @ 100 mls/hr DAILY@1400 IV 08/02/16 14:00 08/05/16 14:01 Vital Signs: Date Time Temp Pulse Resp B/P Pulse Ox O2 Delivery O2 Flow Rate FiO2 08/02/16 10:39 Nasal Cannula 4.0 08/02/16 08:33 88 18 94 Nasal Cannula 3.0 08/02/16 07:30 36.6 83 20 108/72 96 Nasal Cannula 4.0 08/02/16 00:00 Nasal Cannula 4.0 08/01/16 23:25 36.3 90 18 108/64 95 Nasal Cannula 3.0 08/01/16 20:00 Nasal Cannula 4.0 08/01/16 19:21 103 18 93 Nasal Cannula 3.0 08/01/16 16:30 Nasal Cannula 4.0 08/01/16 16:17 36.5 99 18 100/65 91 Nasal Cannula 3.0 08/01/16 14:01 93 18 96 Nasal Cannula 4.0 08/01/16 12:08 36.2 90 18 105/64 96 Nasal Cannula 4.0 Laboratory Results: Last 24 Hours Test 08/02/16 06:35 White Blood Count 15.05 K/uL Red Blood Count 2.59 M/uL Hemoglobin 8.4 g/dL Hematocrit 25.7 % Mean Corpuscular Volume 99.2 fL Mean Corpuscular Hemoglobin 32.4 pg Mean Corpuscular Hemoglobin Concent 32.7 g/dl Platelet Count 220 K/uL Mean Platelet Volume 9.3 fL Neutrophils (%) (Auto) 93.7 % Lymphocytes (%) (Auto) 4.4 % Monocytes (%) (Auto) 1.1 % Eosinophils (%) (Auto) 0.1 % Basophils (%) (Auto) 0.1 % Neutrophils # (Auto) 14.12 K/uL Lymphocytes # (Auto) 0.66 K/uL Monocytes # (Auto) 0.16 K/uL Eosinophils # (Auto) 0.01 K/uL Basophils # (Auto) 0.01 K/uL RDW Standard Deviation 79.4 fL RDW Coefficient of Variation 22.7 % Immature Granulocyte % (Auto) 0.6 % Immature Granulocyte # (Auto) 0.09 K/uL Nucleated RBC Absolute Count (auto) 0.02 K/uL Nucleated Red Blood Cells % 0.1 % Anisocytosis PRESENT Prothrombin Time 12.8 SECONDS Prothromb Time International Ratio 1.2 Activated Partial Thromboplast Time 25.0 SECONDS Partial Thromboplastin Ratio 1.0 Sodium Level 142 mmol/L Potassium Level 3.7 mmol/L Chloride Level 105 mmol/L Carbon Dioxide Level 28 mmol/L Anion Gap 9.0 mmol/L Blood Urea Nitrogen 17 mg/dl Creatinine 0.76 mg/dl Est Creatinine Clear Calc Drug Dose 97.5 ml/min Estimated GFR () 113.3 Estimated GFR (Non- 97.8 BUN/Creatinine Ratio 22.5 Random Glucose 136 mg/dl Calcium Level 7.7 mg/dl Magnesium Level 2.4 mg/dl Total Bilirubin 0.3 mg/dl Direct Bilirubin < 0.1 mg/dl Aspartate Amino Transf (AST/SGOT) 15 U/L Alanine Aminotransferase (ALT/SGPT) 21 U/L Alkaline Phosphatase 83 U/L Total Protein 5.9 gm/dl Albumin 2.0 gm/dl
[2016-08-02] MEDS: KETOROLAC TROMETHAMINE 15 MG/ML VIAL IV PRN ×2 (12:27→18:14)
[2016-08-02] MEDS: LEVOFLOXACIN / D5W 750 MG in PREMIXED IN D5W 150 ML IV SCH (14:08)
[2016-08-02 14:32] VITALS: BP 104/71; PULSE 81; TEMP 36.4; O2SAT 93; O2SAT 95
[2016-08-02 14:35] VITALS: PULSE 88; O2SAT 94
--- NOTE | 2016-08-02 17:08 | DIAGNOSTIC IMAGING REPORT ---
HEAD CT NONCONTRAST CT DOSE: 823.94 mGycm HISTORY: Mental status change confusion, CVA TECHNIQUE: Multiaxial CT images of the head were performed without the use of intravenous contrast. Comparison: None. Findings: The paranasal sinuses and mastoid air cells are clear. Osseous structures are unremarkable. There is suggestion of a subtle low density process medially superior to the right lateral ventricle. In addition, there is subtle heterogeneity of density characteristics of the cortical regions throughout both cerebral hemispheres. There is a low density process right occipital lobe possibly associated with a very subtle higher density cortical process medially adjacent to the occipital horn right lateral ventricle. Small findings in the left frontal region. There is a small hyperdense process superior left frontal lobe. Impression: 1. Multifocal areas of subtle changes in density characteristics throughout both cerebral hemispheres. 2. Although possibly secondary to acute/subacute infarct, an MRI of the brain should be obtained with contrast enhancement to exclude metastatic change Electronically signed by: Luigi Sesay M.D. 08/02/2016 5:07 PM Dictated Date/Time: 08/02/2016 5:03 PM
--- NOTE | 2016-08-02 18:39 | Progress Note ---
Subjective Subjective Date of Service: Aug 02, 2016. Pt evaluation today including: conversation w/ patient, conversation w/ family , physical exam, chart review, review of studies, conversation w/ independent beauty consultant ( [place]), review of inpatient medication list Problem List Medical Problems: (1) Fracture of rib of right side Status: Acute (2) Lumbago Status: Chronic (3) Mesothelioma Status: Chronic (4) Pleuritic chest pain Status: Acute (5) Reflux Esophagitis Status: Chronic (6) Right lower lobe lung mass Status: Acute (7) Sepsis Status: Acute Review of Systems Constitutional: No fever ENT: No hearing loss Respiratory: No cough Cardiac: No chest pain Abdomen: No pain Male : No dysuria Neurologic: No memory loss Psychiatric: No depression symptoms Endo: No fatigue Skin: No rash Physical Exam Vital Signs Vital Signs Past 24 Hours: Date Time Temp Pulse Resp B/P Pulse Ox O2 Delivery O2 Flow Rate FiO2 08/02/16 16:00 Nasal Cannula 2.0 08/02/16 14:35 88 18 94 Nasal Cannula 3.0 08/02/16 14:32 36.4 81 20 104/71 95 Nasal Cannula 4.0 08/02/16 10:39 Nasal Cannula 4.0 08/02/16 08:33 88 18 94 Nasal Cannula 3.0 08/02/16 07:30 36.6 83 20 108/72 96 Nasal Cannula 4.0 08/02/16 00:00 Nasal Cannula 4.0 08/01/16 23:25 36.3 90 18 108/64 95 Nasal Cannula 3.0 08/01/16 20:00 Nasal Cannula 4.0 08/01/16 19:21 103 18 93 Nasal Cannula 3.0 Physical Exam: General Appearance: WD/WN, no apparent distress Eyes: bilateral eyes normal inspection ENT: hearing grossly normal, pharynx normal Neck: supple, no JVD Respiratory/Chest: no respiratory distress, + decreased breath sounds, + rales Cardiovascular: no edema, no JVD Abdomen: normal bowel sounds, non tender Extremities: normal range of motion, normal inspection Neurologic/Psychiatric: normal mood/affect, oriented x 3 Skin: normal color Medications Medications: Current Inpatient Medications Medications (Trade) Dose Ordered Sig/Chao Route Start Time Stop Time Status Last Admin Dose Admin Ioversol (Optiray 320) 125 ml UD PRN IV 07/30/16 16:45 08/03/16 16:44 Folic Acid (Folvite Tab) 1 mg DAILY PO 07/31/16 08:00 08/30/16 08:59 08/02/16 08:19 1 MG Lorazepam (Ativan Tab) 1 mg HS PO 07/30/16 21:00 08/29/16 20:59 08/01/16 20:14 1 MG Magnesium Oxide (Mag-Ox Tab) 400 mg Q12 PO 07/30/16 21:00 08/29/16 20:59 08/02/16 08:38 400 MG Polyethylene (Miralax Powder Packet) 17 gm DAILY PO 07/31/16 08:00 08/30/16 08:59 08/02/16 08:39 17 GM Promethazine HCl (Phenergan Tab) 25 mg Q6H PRN PO 07/30/16 19:00 08/29/16 18:59 Senna/Docusate Sodium (Senokot S Tab) 2 tab DAILY PO 07/31/16 08:00 08/30/16 08:59 08/02/16 08:22 2 TAB Pantoprazole Sodium (Protonix Tab) 40 mg QAM PO 07/31/16 08:00 08/30/16 08:59 08/02/16 08:19 40 MG Miscellaneous (Fentanyl Patch Remove & Waste) 1 ea Q3D N/A 08/02/16 21:00 09/01/16 20:59 Miscellaneous Information (Check Fentanyl Patch Placement) 1 ea QS N/A 07/31/16 00:00 08/30/16 00:00 08/02/16 16:14 1 EA Acetaminophen (Tylenol Tab) 650 mg Q4H PRN PO 07/30/16 19:00 08/29/16 18:59 Magnesium Hydroxide (Milk Of Magnesia Susp) 30 ml Q6H PRN PO 07/30/16 19:00 08/29/16 18:59 Diphenhydramine HCl (Benadryl Inj) 25 mg Q4H PRN IV 07/30/16 19:00 08/29/16 18:59 Al Hydrox/Mg Hydrox/ Simethicone 15 ml 15 ml Q4H PRN PO 07/30/16 19:00 08/29/16 18:59 2/21/17 18:35 15 ML Promethazine HCl/ Sodium Chloride (Phenergan Inj/ Nss 50ml) 50.5 ml @ 202 mls/hr Q4H PRN IV 07/30/16 19:00 08/29/16 18:59 Zolpidem Tartrate (Ambien Tab) 5 mg HSZ PRN PO 07/30/16 19:00 08/29/16 18:59 Ondansetron HCl (Zofran Inj) 4 mg Q6H PRN IV 07/30/16 19:00 08/29/16 18:59 07/30/16 21:03 4 MG Morphine Sulfate (MoRPHine SULFATE INJ) 2 mg Q2H PRN IV 07/30/16 19:00 08/13/16 18:59 Morphine Sulfate (MoRPHine SULFATE INJ) 4 mg Q2H PRN IV 07/30/16 19:00 08/13/16 18:59 07/30/16 21:03 4 MG Guaifenesin 600 mg 600 mg BID PO 07/30/16 20:34 08/29/16 20:59 08/02/16 08:20 600 MG Sodium Chloride (Nss 1000ml) 1,000 ml @ 125 mls/hr Q8H IV 07/30/16 21:15 08/29/16 17:22 08/02/16 14:07 125 MLS/HR Ipratropium [place] (Atrovent 0.02% 0.5MG/2.5ML Neb) 0.5 mg Q6R INH 07/31/16 03:00 08/30/16 02:59 08/02/16 14:34 0.5 MG Levalbuterol (Xopenex 1.25MG/ 0.5ML Neb) 1.25 mg Q6R INH 07/31/16 03:00 08/30/16 02:59 08/02/16 14:34 1.25 MG Ipratropium [place] (Atrovent 0.02% 0.5MG/2.5ML Neb) 0.5 mg Q2H PRN INH 07/30/16 21:15 08/29/16 21:14 Levalbuterol 1.25 mg 1.25 mg Q2H PRN INH 07/30/16 21:15 08/29/16 21:14 Piperacillin Sod/ Tazobactam Sod/ Dextrose (Zosyn Iv/D5 100ml) 115 ml @ 28.75 mls/ hr Q8H IV 07/31/16 00:00 08/07/16 00:00 08/02/16 16:14 28.75 MLS/HR Piperacillin Sod/ Tazobactam Sod 1 ea 1 ea UD PRN N/A 07/30/16 21:15 08/29/16 21:14 Lorazepam/Syringe (Ativan Inj/ Syringe) 1 ml @ 1 mls/min Q4H PRN IV 07/30/16 23:00 08/29/16 22:59 08/02/16 08:36 1 MLS/MIN Fentanyl (Duragesic Patch) 50 mcg Q3D@2100 TD 07/30/16 23:50 08/13/16 23:49 07/31/16 00:05 50 MCG Miscellaneous (Fentanyl Patch Remove & Waste) 1 ea Q3D@2059 N/A 08/02/16 20:59 09/01/16 20:58 Miscellaneous Information (Check Fentanyl Patch Placement) 1 ea QS N/A 07/31/16 08:00 08/30/16 07:59 08/02/16 16:14 1 EA Fentanyl (Duragesic Patch) 100 mcg Q3D@2100 TD 08/02/16 21:00 08/16/16 20:59 Ketorolac Tromethamine 15 mg 15 mg Q6H PRN IV 08/01/16 00:00 08/03/16 00:00 08/02/16 18:14 15 MG Levofloxacin 750 mg/Prmx 150 ml @ 100 mls/hr DAILY@1400 IV 08/02/16 14:00 08/05/16 14:01 08/02/16 14:08 100 MLS/HR Methylprednisolone Sodium Succinate/ Syringe (Solu-Medrol IV/ Syringe) 0.64 ml @ 1.5 mls/min Q8H IV 08/03/16 00:00 09/02/16 00:00 Laboratory Data Labs: Last 24 Hours Test 08/02/16 06:35 White Blood Count 15.05 K/uL Red Blood Count 2.59 M/uL Hemoglobin 8.4 g/dL Hematocrit 25.7 % Mean Corpuscular Volume 99.2 fL Mean Corpuscular Hemoglobin 32.4 pg Mean Corpuscular Hemoglobin Concent 32.7 g/dl Platelet Count 220 K/uL Mean Platelet Volume 9.3 fL Neutrophils (%) (Auto) 93.7 % Lymphocytes (%) (Auto) 4.4 % Monocytes (%) (Auto) 1.1 % Eosinophils (%) (Auto) 0.1 % Basophils (%) (Auto) 0.1 % Neutrophils # (Auto) 14.12 K/uL Lymphocytes # (Auto) 0.66 K/uL Monocytes # (Auto) 0.16 K/uL Eosinophils # (Auto) 0.01 K/uL Basophils # (Auto) 0.01 K/uL RDW Standard Deviation 79.4 fL RDW Coefficient of Variation 22.7 % Immature Granulocyte % (Auto) 0.6 % Immature Granulocyte # (Auto) 0.09 K/uL Nucleated RBC Absolute Count (auto) 0.02 K/uL Nucleated Red Blood Cells % 0.1 % Anisocytosis PRESENT Prothrombin Time 12.8 SECONDS Prothromb Time International Ratio 1.2 Activated Partial Thromboplast Time 25.0 SECONDS Partial Thromboplastin Ratio 1.0 Sodium Level 142 mmol/L Potassium Level 3.7 mmol/L Chloride Level 105 mmol/L Carbon Dioxide Level 28 mmol/L Anion Gap 9.0 mmol/L Blood Urea Nitrogen 17 mg/dl Creatinine 0.76 mg/dl Est Creatinine Clear Calc Drug Dose 97.5 ml/min Estimated GFR () 113.3 Estimated GFR (Non- 97.8 BUN/Creatinine Ratio 22.5 Random Glucose 136 mg/dl Calcium Level 7.7 mg/dl Magnesium Level 2.4 mg/dl Total Bilirubin 0.3 mg/dl Direct Bilirubin < 0.1 mg/dl Aspartate Amino Transf (AST/SGOT) 15 U/L Alanine Aminotransferase (ALT/SGPT) 21 U/L Alkaline Phosphatase 83 U/L Total Protein 5.9 gm/dl Albumin 2.0 gm/dl Assessment and Plan A 60 yo male comes with Malignant mesothelioma with bilateral pneumonia, pleural effusions, pathologic rib fractures--the patient will be admitted to the oncology unit. continue Solu-Medrol 60 mg IV every 6 hours, vancomycin IV per renal dosing, levofloxacin 750 mg IV every 24 hours, guaifenesin extended release 600 mg by mouth twice a day, and Xopenex with Atrovent nebulizer to use every 6 hours while awake and every 2 hours when necessary. Known to Dr Jensen and Dr Landin, has appt at [facility] Oncology, no chemoTx now due to pneumonia Pleural effusion, parapneumonic vs malignant effusion sec to mesothelioma, consulted pulmonary for possible thoracentesis, however patient and family wants to wait till sunday to talk to oncologist from [place] regarding clinical trial mesothelioma treatment Chronic pain syndrome with acute worsening secondary to pathologic rib fractures continue fentanyl patch 100 to 150g every 72 hours, and continue oxycodone at 10 mg by mouth increase from every 4 to every 2 hours when necessary. morphine sulfate 2-4 mg IV every 2 hours when necessary Anxiety lorazepam 1 mg by mouth at bedtime to 1 mg by mouth every 4 hours when necessary. GERD pantoprazole 40 mg by mouth daily. Constipation continue Senokot 2 tablets by mouth daily and MiraLAX 17 g by mouth daily. will consider palliative care consult regarding possible home hospice will need to address code status, may need to consult palliative care/hospice if continue to refuse thoracentesis Continued [facility] stay due to: multiple IV medications needed
[2016-08-02] MEDS: MoRPHine SULFATE 2 MG/ML CARP IV PRN (19:01)
[2016-08-02 19:05] VITALS: PULSE 80; O2SAT 94
[2016-08-02] MEDS: ONDANSETRON INJ 2 MG/ML 2 ML VIAL IV PRN ×2 (19:33→19:35)
[2016-08-02] MEDS: LORAZEPAM 1 MG TAB PO SCH (20:36)
[2016-08-02] MEDS: FENTANYL 100 MCG/HR TDSY TD SCH (20:36)
[2016-08-02] MEDS: FENTANYL 50 MCG/HR TDSY TD SCH (20:36)
[2016-08-02] MEDS: FENTANYL PATCH REMOVE & WASTE SCH ×2 (20:37→20:39)
[2016-08-02] MEDS: METHYLPREDNISOLONE IV 40 MG in SYRINGE 0 ML IV SCH (23:31)
[2016-08-02] MEDS: MoRPHine SULFATE 4 MG/ML 1 ML CARP\\VIAL IV PRN (23:41)
[2016-08-03] VITALS (9 sets, daily range): BP systolic 108–126; BP diastolic 69–77; PULSE 78–113; TEMP 36.3–36.5; O2SAT 96–100
[2016-08-03] MEDS: LEVALBUTEROL 1.25MG/0.5ML NEB INH SCH ×4 (01:53→19:48)
[2016-08-03] MEDS: IPRATROPIUM BROMIDE NEB SOLN 0.02% 2.5 ML VIAL INH SCH ×4 (01:53→19:48)
[2016-08-03] MEDS: SODIUM CHLORIDE 0.9% 1000ML 1,000 ML IV SCH ×4 (03:35→22:17)
[2016-08-03] MEDS: METHYLPREDNISOLONE IV 40 MG in SYRINGE 0 ML IV SCH ×2 (08:19→19:57)
[2016-08-03] MEDS: CHECK FENTANYL PATCH PLACEMENT SCH ×4 (08:26→16:07)
[2016-08-03] MEDS: PIPERACILL/TAZOBAC IV 3.375 GM in DEXTROSE 5% 100ML IV SCH (08:27)
[2016-08-03] MEDS: MoRPHine SULFATE 2 MG/ML CARP IV PRN ×2 (08:32→14:16)
[2016-08-03] MEDS: PANTOprazole SOD 40 MG TAB PO SCH (08:40)
[2016-08-03] MEDS: GUAIFENESIN 200 MG TAB PO SCH ×2 (08:40→19:57)
[2016-08-03] MEDS: POLYETHYLENE (MIRALAX) 17 GM PACK PO SCH (08:40)
[2016-08-03] MEDS: DOCUSATE SODIUM/SENNA 50/8.6MG TAB PO SCH (08:41)
[2016-08-03] MEDS: MAGNESIUM OXIDE 400 MG TAB PO SCH ×2 (08:41→22:17)
--- NOTE | 2016-08-03 10:21 | Medical Student: [facility] ---
Med Student Progress Note Date of Service Aug 03, 2016. Subjective Pt evaluation today including: conversation w/ patient, conversation w/ family , physical exam, chart review, lab review This is 60 y/o male with malignant mesothelioma, sarcomatoid type who continues to have altered mental status and pleural effusions b/l. Extensive conversation was had with patient and family yesterday regarding direction of care. Family has elected to wait for input from mesothelioma expert in [place] before making decisions regarding thoracocentesis/further care vs. hospice. They are hopeful that there are some non-chemo based clinical trials that they could pursue. They state he did not tolerate chemo well and it made him too sick. Otherwise, they do not feel that it is worth it to undergo thoracocentesis and subject patient to more pain. There are no changes in patient's state since yesterday. He continues to be disoriented, but he is able to answer some direct questions about his current state. He continues to report some pain, particularly in right side where chest tube was. He still has not had a bowel movement. He is eating some of his meals. Review of Systems Notes: ROS limited by patient's mental status Objective Vital Signs Date Time Temp Pulse Resp B/P Pulse Ox O2 Delivery O2 Flow Rate FiO2 08/03/16 08:20 Room Air 08/03/16 08:00 Nasal Cannula 08/03/16 07:39 78 16 98 Nasal Cannula 2.0 08/03/16 07:22 36.4 90 16 118/77 97 Nasal Cannula 2.0 08/03/16 01:53 87 16 98 Nasal Cannula 3.0 08/03/16 00:19 36.3 84 20 126/70 99 Nasal Cannula 4.0 08/03/16 00:00 Nasal Cannula 3.0 08/02/16 19:05 80 18 94 Nasal Cannula 3.0 08/02/16 16:00 Nasal Cannula 2.0 08/02/16 14:35 88 18 94 Nasal Cannula 3.0 08/02/16 14:32 36.4 81 20 104/71 95 Nasal Cannula 4.0 08/02/16 10:39 Nasal Cannula 4.0 Physical Exam General Appearance: WD/WN, no apparent distress Neck: supple, no adenopathy, thyroid normal Respiratory/Chest: no respiratory distress, no accessory muscle use, + decreased breath sounds, + crackles, + pertinent finding (pain to touch on right side) Cardiovascular: regular rate, rhythm, no gallop Abdomen: normal bowel sounds, non tender, soft, no organomegaly Extremities: + pedal edema (1+ b/l) Neurologic/Psychiatric: no motor/sensory deficits, + disoriented Skin: normal color, warm/dry Lymphatic: no adenopathy Medications Medications Administered Medications (Trade) Dose Ordered Sig/Chao Route Start Time Stop Time Status Last Admin Dose Admin Fentanyl Citrate (Fentanyl Inj) 50 mcg NOW STAT IV 07/30/16 15:05 07/30/16 15:07 DC 07/30/16 15:29 50 MCG Levalbuterol (Xopenex 1.25MG/ 3ML Neb) 1.25 mg NOW STAT INH 07/30/16 15:05 07/30/16 15:07 DC 07/30/16 15:05 1.25 MG Piperacillin Sod/ Tazobactam Sod 4.5 gm 4.5 gm NOW STAT IV 07/30/16 16:18 07/30/16 16:22 DC 07/30/16 17:00 4.5 GM Vancomycin HCl/ Sodium Chloride (Vancomycin Inj/ Nss 500ml) 530 ml @ 200 mls/hr ONE STAT IV 07/30/16 16:18 07/30/16 18:56 DC 07/30/16 17:45 200 MLS/HR Levofloxacin 750 mg 750 mg NOW STAT IV 07/30/16 16:18 07/30/16 16:22 DC 07/30/16 17:45 750 MG Sodium Chloride 1,000 ml @ 125 mls/hr Q8H STAT IV 07/30/16 17:23 07/30/16 21:02 DC 07/30/16 18:49 125 MLS/HR Sodium Chloride (Nss 500ml) 500 ml @ 999 mls/hr Q31M STAT IV 07/30/16 17:23 07/30/16 17:53 DC 07/30/16 18:04 999 MLS/HR Fentanyl Citrate (Fentanyl Inj) 50 mcg NOW STAT IV 07/30/16 18:35 07/30/16 18:37 DC 07/30/16 18:49 50 MCG Fentanyl (Duragesic Patch) 100 mcg Q72H TD 07/30/16 21:00 07/30/16 21:33 DC 07/30/16 21:05 100 MCG Folic Acid (Folvite Tab) 1 mg DAILY PO 07/31/16 08:00 08/30/16 08:59 08/03/16 08:39 1 MG Lorazepam (Ativan Tab) 1 mg HS PO 07/30/16 21:00 08/29/16 20:59 08/02/16 20:36 1 MG Magnesium Oxide (Mag-Ox Tab) 400 mg Q12 PO 07/30/16 21:00 08/29/16 20:59 08/03/16 08:41 400 MG Polyethylene (Miralax Powder Packet) 17 gm DAILY PO 07/31/16 08:00 08/30/16 08:59 08/03/16 08:40 17 GM Senna/Docusate Sodium (Senokot S Tab) 2 tab DAILY PO 07/31/16 08:00 08/30/16 08:59 08/03/16 08:41 2 TAB Pantoprazole Sodium (Protonix Tab) 40 mg QAM PO 07/31/16 08:00 08/30/16 08:59 08/03/16 08:40 40 MG Miscellaneous (Fentanyl Patch Remove & Waste) 1 ea Q3D N/A 08/02/16 21:00 09/01/16 20:59 08/02/16 20:39 1 EA Miscellaneous Information (Check Fentanyl Patch Placement) 1 ea QS N/A 07/31/16 00:00 08/30/16 00:00 08/03/16 08:26 1 EA Al Hydrox/Mg Hydrox/Simethicone (Maalox Max Susp) 15 ml Q4H PRN PO 07/30/16 19:00 08/29/16 18:59 08/01/16 18:35 15 ML Ondansetron HCl (Zofran Inj) 4 mg Q6H PRN IV 07/30/16 19:00 08/29/16 18:59 08/02/16 19:35 4 MG Morphine Sulfate (MoRPHine SULFATE INJ) 2 mg Q2H PRN IV 07/30/16 19:00 08/13/16 18:59 08/03/16 08:32 2 MG Morphine Sulfate 4 mg 4 mg Q2H PRN IV 07/30/16 19:00 08/13/16 18:59 08/02/16 23:41 4 MG Methylprednisolone Sodium Succinate/ Syringe (Solu-Medrol IV/ Syringe) 0.96 ml @ 1.5 mls/min Q6H IV 07/30/16 22:00 08/02/16 16:43 DC 08/02/16 16:14 1.5 MLS/MIN Guaifenesin 600 mg 600 mg BID PO 07/30/16 20:34 08/29/16 20:59 08/03/16 08:40 600 MG Sodium Chloride (Nss 1000ml) 1,000 ml @ 125 mls/hr Q8H IV 07/30/16 21:15 08/29/16 17:22 08/03/16 08:16 125 MLS/HR Ipratropium [place] (Atrovent 0.02% 0.5MG/2.5ML Neb) 0.5 mg Q6R INH 07/31/16 03:00 08/30/16 02:59 08/03/16 07:38 0.5 MG Levalbuterol 1.25 mg 1.25 mg Q6R INH 07/31/16 03:00 08/30/16 02:59 08/03/16 07:39 1.25 MG Piperacillin Sod/ Tazobactam Sod 3.375 gm/Dextrose 115 ml @ 28.75 mls/ hr Q8H IV 07/31/16 00:00 08/07/16 00:00 08/03/16 08:27 28.75 MLS/HR Levofloxacin 500 mg/Prmx 100 ml @ 100 mls/hr DAILY@1400 IV 07/31/16 14:00 08/01/16 15:49 DC 08/01/16 13:47 100 MLS/HR Vancomycin HCl 1200 mg/Sodium Chloride 274 ml @ 125 mls/hr Q10H IV 07/31/16 00:00 07/31/16 17:13 DC 07/31/16 10:53 125 MLS/HR Lorazepam/Syringe (Ativan Inj/ Syringe) 1 ml @ 1 mls/min Q4H PRN IV 07/30/16 23:00 08/29/16 22:59 08/02/16 08:36 1 MLS/MIN Fentanyl (Duragesic Patch) 50 mcg Q3D@2100 TD 07/30/16 23:50 08/13/16 23:49 08/02/16 20:36 50 MCG Miscellaneous (Fentanyl Patch Remove & Waste) 1 ea Q3D@2059 N/A 08/02/16 20:59 09/01/16 20:58 08/02/16 20:37 1 EA Miscellaneous Information (Check Fentanyl Patch Placement) 1 ea QS N/A 07/31/16 08:00 08/30/16 07:59 08/03/16 08:26 1 EA Fentanyl (Duragesic Patch) 100 mcg Q3D@2100 TD 08/02/16 21:00 08/16/16 20:59 08/02/16 20:36 100 MCG Miscellaneous (Fentanyl Patch Remove & Waste) 1 ea NOW ONCE N/A 07/31/16 09:00 07/31/16 09:01 DC 07/31/16 10:52 1 EA Ketorolac Tromethamine (Toradol Inj) 30 mg NOW STAT IV 07/31/16 17:52 07/31/16 17:58 DC 07/31/16 18:45 30 MG Ketorolac Tromethamine 15 mg 15 mg Q6H PRN IV 08/01/16 00:00 08/03/16 00:00 DC 08/02/16 18:14 15 MG Levofloxacin 750 mg/Prmx 150 ml @ 100 mls/hr DAILY@1400 IV 08/02/16 14:00 08/05/16 14:01 08/02/16 14:08 100 MLS/HR Methylprednisolone Sodium Succinate/ Syringe (Solu-Medrol IV/ Syringe) 0.64 ml @ 1.5 mls/min Q8H IV 08/03/16 00:00 09/02/16 00:00 08/03/16 08:19 1.5 MLS/MIN Assessment and Plan Assessment and Plan: Assessment and Plan: This is a 60 year old male with bilateral pleural effusions and altered mental status in the context of malignant mesothelioma. Persistent altered mental status could be due to either pneumonia or malignancy. Thus far, cultures have not grown anything. Family wishes to wait for input from mesothelioma expert in [place] before making decisions regarding thoracentesis/further care vs. hospice. Malignant mesothelioma with bilateral pleural effusions, pathologic rib fractures -pleural effusion/altered mental status caused by pneumonia vs. malignancy -beginning steroid taper ---Solu-Medrol 40 mg IV every 8 hours -vancomycin IV per renal dosing -levofloxacin increased to 750 mg IV every 24 hours -Zosyn IV -guaifenesin extended release 600 mg by mouth twice a day -Xopenex with Atrovent nebulizer to use every 6 hours while awake and every 2 hours when necessary. Altered Mental Status -assessment for decision making capability Chronic pain syndrome with acute worsening secondary to pathologic rib fractures -pain currently controlled adequately -fentanyl patch 100 to 150g every 72 hours -continue oxycodone at 10 mg by mouth increase from every 4 to every 2 hours when necessary. -morphine sulfate 2-4 mg IV every 2 hours when necessary Constipation -no bm since Sunday -may consider KUB to r/o obstruction -continue miralax, sennakot Anxiety -lorazepam 1 mg by mouth at bedtime to 1 mg by mouth every 4 hours when necessary. GERD -pantoprazole 40 mg by mouth daily. Continued [facility] stay due to: multiple IV medications needed
[2016-08-03] MEDS: LEVOFLOXACIN / D5W 750 MG in PREMIXED IN D5W 150 ML IV SCH (13:27)
--- NOTE | 2016-08-03 15:13 | Progress Note ---
Subjective Subjective Date of Service: Aug 03, 2016. Pt evaluation today including: conversation w/ patient, conversation w/ family , physical exam, chart review, review of studies, review of inpatient medication list Notes: mental status improved Problem List Medical Problems: (1) Fracture of rib of right side Status: Acute (2) Lumbago Status: Chronic (3) Mesothelioma Status: Chronic (4) Pleuritic chest pain Status: Acute (5) Reflux Esophagitis Status: Chronic (6) Right lower lobe lung mass Status: Acute (7) Sepsis Status: Acute Review of Systems Constitutional: No fever ENT: No hearing loss Respiratory: No cough Cardiac: No chest pain Abdomen: No pain Male : No dysuria Neurologic: No memory loss Psychiatric: No depression symptoms Heme: No abnormal bleeding/bruising Physical Exam Vital Signs Vital Signs Past 24 Hours: Date Time Temp Pulse Resp B/P Pulse Ox O2 Delivery O2 Flow Rate FiO2 08/03/16 11:53 36.5 85 20 121/75 98 Nasal Cannula 2.0 08/03/16 08:20 Room Air 08/03/16 08:00 Nasal Cannula 08/03/16 07:39 78 16 98 Nasal Cannula 2.0 08/03/16 07:22 36.4 90 16 118/77 97 Nasal Cannula 2.0 08/03/16 01:53 87 16 98 Nasal Cannula 3.0 08/03/16 00:19 36.3 84 20 126/70 99 Nasal Cannula 4.0 08/03/16 00:00 Nasal Cannula 3.0 08/02/16 19:05 80 18 94 Nasal Cannula 3.0 08/02/16 16:00 Nasal Cannula 2.0 Physical Exam: General Appearance: WD/WN, no apparent distress Eyes: bilateral eyes normal inspection ENT: hearing grossly normal, pharynx normal Neck: supple, no JVD Respiratory/Chest: chest non-tender, + rales (bases) Cardiovascular: no edema, no gallop Abdomen: normal bowel sounds, soft Extremities: non-tender Neurologic/Psychiatric: alert Skin: normal color Medications Medications: Current Inpatient Medications Medications (Trade) Dose Ordered Sig/Chao Route Start Time Stop Time Status Last Admin Dose Admin Ioversol (Optiray 320) 125 ml UD PRN IV 07/30/16 16:45 08/03/16 16:44 Folic Acid (Folvite Tab) 1 mg DAILY PO 07/31/16 08:00 08/30/16 08:59 08/03/16 08:39 1 MG Lorazepam (Ativan Tab) 1 mg HS PO 07/30/16 21:00 08/29/16 20:59 08/02/16 20:36 1 MG Magnesium Oxide (Mag-Ox Tab) 400 mg Q12 PO 07/30/16 21:00 08/29/16 20:59 08/03/16 08:41 400 MG Polyethylene (Miralax Powder Packet) 17 gm DAILY PO 07/31/16 08:00 08/30/16 08:59 08/03/16 08:40 17 GM Promethazine HCl (Phenergan Tab) 25 mg Q6H PRN PO 07/30/16 19:00 08/29/16 18:59 Senna/Docusate Sodium (Senokot S Tab) 2 tab DAILY PO 07/31/16 08:00 08/30/16 08:59 08/03/16 08:41 2 TAB Pantoprazole Sodium (Protonix Tab) 40 mg QAM PO 07/31/16 08:00 08/30/16 08:59 08/03/16 08:40 40 MG Miscellaneous (Fentanyl Patch Remove & Waste) 1 ea Q3D N/A 08/02/16 21:00 09/01/16 20:59 08/02/16 20:39 1 EA Miscellaneous Information (Check Fentanyl Patch Placement) 1 ea QS N/A 07/31/16 00:00 08/30/16 00:00 08/03/16 08:26 1 EA Acetaminophen (Tylenol Tab) 650 mg Q4H PRN PO 07/30/16 19:00 08/29/16 18:59 Magnesium Hydroxide (Milk Of Magnesia Susp) 30 ml Q6H PRN PO 07/30/16 19:00 08/29/16 18:59 Diphenhydramine HCl (Benadryl Inj) 25 mg Q4H PRN IV 07/30/16 19:00 08/29/16 18:59 Al Hydrox/Mg Hydrox/ Simethicone 15 ml 15 ml Q4H PRN PO 07/30/16 19:00 08/29/16 18:59 08/01/16 18:35 15 ML Promethazine HCl/ Sodium Chloride (Phenergan Inj/ Nss 50ml) 50.5 ml @ 202 mls/hr Q4H PRN IV 07/30/16 19:00 08/29/16 18:59 Zolpidem Tartrate (Ambien Tab) 5 mg HSZ PRN PO 07/30/16 19:00 08/29/16 18:59 Ondansetron HCl (Zofran Inj) 4 mg Q6H PRN IV 07/30/16 19:00 08/29/16 18:59 08/02/16 19:35 4 MG Morphine Sulfate (MoRPHine SULFATE INJ) 2 mg Q2H PRN IV 07/30/16 19:00 08/13/16 18:59 08/03/16 14:16 2 MG Morphine Sulfate (MoRPHine SULFATE INJ) 4 mg Q2H PRN IV 07/30/16 19:00 08/13/16 18:59 08/02/16 23:41 4 MG Guaifenesin 600 mg 600 mg BID PO 07/30/16 20:34 08/29/16 20:59 08/03/16 08:40 600 MG Sodium Chloride (Nss 1000ml) 1,000 ml @ 125 mls/hr Q8H IV 07/30/16 21:15 08/29/16 17:22 08/03/16 13:24 125 MLS/HR Ipratropium [place] (Atrovent 0.02% 0.5MG/2.5ML Neb) 0.5 mg Q6R INH 07/31/16 03:00 08/30/16 02:59 08/03/16 07:38 0.5 MG Levalbuterol (Xopenex 1.25MG/ 0.5ML Neb) 1.25 mg Q6R INH 07/31/16 03:00 08/30/16 02:59 08/03/16 07:39 1.25 MG Ipratropium [place] (Atrovent 0.02% 0.5MG/2.5ML Neb) 0.5 mg Q2H PRN INH 07/30/16 21:15 08/29/16 21:14 Levalbuterol 1.25 mg 1.25 mg Q2H PRN INH 07/30/16 21:15 08/29/16 21:14 Lorazepam/Syringe (Ativan Inj/ Syringe) 1 ml @ 1 mls/min Q4H PRN IV 07/30/16 23:00 08/29/16 22:59 08/02/16 08:36 1 MLS/MIN Fentanyl (Duragesic Patch) 50 mcg Q3D@2100 TD 07/30/16 23:50 08/13/16 23:49 08/02/16 20:36 50 MCG Miscellaneous (Fentanyl Patch Remove & Waste) 1 ea Q3D@2059 N/A 08/02/16 20:59 09/01/16 20:58 08/02/16 20:37 1 EA Miscellaneous Information (Check Fentanyl Patch Placement) 1 ea QS N/A 07/31/16 08:00 08/30/16 07:59 08/03/16 08:26 1 EA Fentanyl 100 mcg 100 mcg Q3D@2100 TD 08/02/16 21:00 08/16/16 20:59 08/02/16 20:36 100 MCG Levofloxacin 750 mg/Prmx 150 ml @ 100 mls/hr DAILY@1400 IV 08/02/16 14:00 08/05/16 14:01 08/03/16 13:27 100 MLS/HR Methylprednisolone Sodium Succinate/ Syringe (Solu-Medrol IV/ Syringe) 0.64 ml @ 1.5 mls/min Q12H IV 08/03/16 20:00 09/02/16 19:59 Assessment and Plan A 60 yo male comes with Malignant mesothelioma with bilateral pneumonia, pleural effusions, pathologic rib fractures--the patient will be admitted to the oncology unit. decreased Solu-Medrol to 40 mg IV every 12 hours, v cibt levofloxacin 750 mg IV every 24 hours, stop zosyn, cont guaifenesin extended release 600 mg by mouth twice a day, and Xopenex with Atrovent nebulizer to use every 6 hours while awake and every 2 hours when necessary. Known to Dr Jensen and Dr Landin, has appt at [facility] Oncology, no chemoTx now due to pneumonia CT head: 1. Multifocal areas of subtle changes in density characteristics throughout both cerebral hemispheres. 2. Although possibly secondary to acute/subacute infarct, an MRI of the brain should be obtained with contrast enhancement to exclude metastatic change I discussed results with and patient and need of MRI, they want to wait for ordering MRI until talking to [place] oncologist Pleural effusion, parapneumonic vs malignant effusion sec to mesothelioma, consulted pulmonary for possible thoracentesis, however patient and family wants to wait till sunday to talk to oncologist from [place] regarding clinical trial mesothelioma treatment Chronic pain syndrome with acute worsening secondary to pathologic rib fractures continue fentanyl patch 100 to 150g every 72 hours, and continue oxycodone at 10 mg by mouth increase from every 4 to every 2 hours when necessary. morphine sulfate 2-4 mg IV every 2 hours when necessary Anxiety lorazepam 1 mg by mouth at bedtime to 1 mg by mouth every 4 hours when necessary. GERD pantoprazole 40 mg by mouth daily. Constipation continue Senokot 2 tablets by mouth daily and MiraLAX 17 g by mouth daily. will consider palliative care consult regarding possible home hospice will need to address code status, may need to consult palliative care/hospice if continues to refuse thoracentesis Continued [facility] stay due to: multiple IV medications needed
[2016-08-03] MEDS: MoRPHine SULFATE 4 MG/ML 1 ML CARP\\VIAL IV PRN ×2 (16:05→19:55)
[2016-08-03] MEDS ORDERED: KETOROLAC TROMETHAMINE 15 MG/ML VIAL ONE (17:41)
[2016-08-03] MEDS ORDERED: NURSING VERBAL MED ORDER ONE ×2 (17:45→18:30)
[2016-08-03] MEDS ORDERED: KETOROLAC TROMETHAMINE 15 MG/ML VIAL IV. PRN (18:00)
[2016-08-03] MEDS ORDERED: LIDODERM (LIDOCAINE) PATCH 5% TD ONE (18:45)
[2016-08-03] MEDS: LORAZEPAM 1 MG TAB PO SCH (22:17)
[2016-08-04] VITALS (7 sets, daily range): BP systolic 108–127; BP diastolic 69–79; PULSE 83–104; TEMP 36.5–36.6; O2SAT 96–100
[2016-08-04] MEDS: MoRPHine SULFATE 4 MG/ML 1 ML CARP\\VIAL IV PRN ×6 (01:28→21:31)
[2016-08-04] MEDS: LEVALBUTEROL 1.25MG/0.5ML NEB INH SCH ×4 (02:33→20:06)
[2016-08-04] MEDS: IPRATROPIUM BROMIDE NEB SOLN 0.02% 2.5 ML VIAL INH SCH ×4 (02:33→20:06)
[2016-08-04] MEDS: LORAZEPAM INJ 1 MG in SYRINGE 0.5 ML IV PRN ×3 (03:54→18:24)
[2016-08-04] MEDS: SODIUM CHLORIDE 0.9% 1000ML 1,000 ML IV SCH ×2 (05:59→13:57)
[2016-08-04] MEDS: GUAIFENESIN 200 MG TAB PO SCH ×2 (08:53→21:27)
[2016-08-04] MEDS: MAGNESIUM OXIDE 400 MG TAB PO SCH ×2 (08:53→21:28)
[2016-08-04] MEDS: PANTOprazole SOD 40 MG TAB PO SCH (08:53)
[2016-08-04] MEDS: POLYETHYLENE (MIRALAX) 17 GM PACK PO SCH (08:54)
[2016-08-04] MEDS: DOCUSATE SODIUM/SENNA 50/8.6MG TAB PO SCH (08:54)
[2016-08-04] MEDS: METHYLPREDNISOLONE IV 40 MG in SYRINGE 0 ML IV SCH ×3 (08:54→21:26)
[2016-08-04] MEDS: CHECK FENTANYL PATCH PLACEMENT SCH ×6 (08:55→15:54)
[2016-08-04] MEDS: LIDODERM (LIDOCAINE) PATCH 5% TD SCH (08:55)
[2016-08-04 10:23] LABS: BASO % 0.1 %; BASO ABS # 0.01 K/uL (0-0.2); EOS % 6.1 %; HEMATOCRIT 28.3 % (42-52); LYMPH % 5.4 %; LYMPH ABS # 0.98 K/uL (1.2-3.4); MEAN CELL VOLUME 97.9 fL (80-100); MEAN CORPUSCULAR HEMOGLOBIN 32.2 pg (25-34); MEAN CORPUSCULAR HGB CONC 32.9 g/dl (32-36); MEAN PLATELET VOLUME 9.1 fL (7.4-10.4); MONO % 5.1 %; NEUT % 82.3 %; PLATELET COUNT 237 K/uL (130-400); RED BLOOD COUNT 2.89 M/uL (4.7-6.1); WHITE BLOOD COUNT 18.08 K/uL (4.8-10.8)
[2016-08-04 10:54] LABS: ANISOCYTOSIS PRESENT; BUN/CREATININE RATIO 15.3 (10-20); CALCIUM 7.8 mg/dl (8.5-10.1); COMPLETE YES; CREATININE 0.7 mg/dl (0.60-1.40); POLYCHROMASIA 1+; POTASSIUM 3.6 mmol/L (3.5-5.1)
--- NOTE | 2016-08-04 12:55 | PROGRESS NOTE ---
DATE: 08/04/2016 PROBLEM LIST: Includes mesothelioma, large left pleural effusion. SUBJECTIVE: The patient is fatigued and obtunded today according to his . He did not sleep last night, was very agitated, had a lot of pain. At this point, it was decided not to arouse the patient. Did speak with the about potentially keeping him comfortable. The patient's states that Dr. Acevedo had discussed this with her as well and she feels that that may be the most appropriate. They do have a pending call from oncologist in [place], it was noted that his white count is elevated, going up, was 15,000 yesterday is up to 18,000 today. also reports the patient did have an episode of diarrhea today. At this point, I think it would be prudent to check a stool for C. diff to see if this may be accounting for the white count elevation, his reports that his urine was clear this morning, did not appear cloudy and did not have any discomfort with voiding. Otherwise, at this point we are going to continue to monitor until the patient's and family decide what they want to do as far as continuing aggressive means or transitioning to comfort/hospice care.
--- NOTE | 2016-08-04 13:51 | Progress Note ---
Subjective Subjective Date of Service: Aug 04, 2016. Pt evaluation today including: conversation w/ patient, conversation w/ family (), physical exam, chart review, review of studies, review of inpatient medication list Notes: denies complains, confused improved, but back pain is worse Problem List Medical Problems: (1) Fracture of rib of right side Status: Acute (2) Lumbago Status: Chronic (3) Mesothelioma Status: Chronic (4) Pleuritic chest pain Status: Acute (5) Reflux Esophagitis Status: Chronic (6) Right lower lobe lung mass Status: Acute (7) Sepsis Status: Acute Review of Systems Constitutional: No fever ENT: No hearing loss Respiratory: No cough Cardiac: No chest pain Abdomen: No pain Male : No dysuria Neurologic: No memory loss Psychiatric: No depression symptoms Endo: No fatigue Physical Exam Vital Signs Vital Signs Past 24 Hours: Date Time Temp Pulse Resp B/P Pulse Ox O2 Delivery O2 Flow Rate FiO2 08/04/16 08:20 Nasal Cannula 3.0 08/04/16 07:47 36.5 84 20 127/74 100 08/04/16 07:31 84 16 96 Nasal Cannula 2.0 08/03/16 23:42 36.5 113 20 118/74 100 Nasal Cannula 3.0 08/03/16 20:00 Nasal Cannula 3.0 08/03/16 19:49 81 16 96 Nasal Cannula 2.0 08/03/16 16:58 Room Air 08/03/16 15:53 36.5 98 18 108/69 98 Nasal Cannula 3.0 08/03/16 15:01 78 16 98 Nasal Cannula 2.0 Physical Exam: General Appearance: WD/WN, no apparent distress Eyes: bilateral eyes normal inspection ENT: hearing grossly normal, pharynx normal Neck: supple Respiratory/Chest: chest non-tender, + decreased breath sounds, + rales Cardiovascular: no edema Abdomen: normal bowel sounds Extremities: normal range of motion Neurologic/Psychiatric: alert Skin: no rash Medications Medications: Current Inpatient Medications Medications (Trade) Dose Ordered Sig/Chao Route Start Time Stop Time Status Last Admin Dose Admin Folic Acid (Folvite Tab) 1 mg DAILY PO 07/31/16 08:00 08/30/16 08:59 08/04/16 08:53 1 MG Lorazepam (Ativan Tab) 1 mg HS PO 07/30/16 21:00 08/29/16 20:59 08/03/16 22:17 1 MG Magnesium Oxide (Mag-Ox Tab) 400 mg Q12 PO 07/30/16 21:00 08/29/16 20:59 08/04/16 08:53 400 MG Polyethylene (Miralax Powder Packet) 17 gm DAILY PO 07/31/16 08:00 08/30/16 08:59 08/03/16 08:40 17 GM Promethazine HCl (Phenergan Tab) 25 mg Q6H PRN PO 07/30/16 19:00 08/29/16 18:59 Senna/Docusate Sodium (Senokot S Tab) 2 tab DAILY PO 07/31/16 08:00 08/30/16 08:59 08/03/16 08:41 2 TAB Pantoprazole Sodium (Protonix Tab) 40 mg QAM PO 07/31/16 08:00 08/30/16 08:59 08/04/16 08:53 40 MG Miscellaneous (Fentanyl Patch Remove & Waste) 1 ea Q3D N/A 08/02/16 21:00 09/01/16 20:59 08/02/16 20:39 1 EA Miscellaneous Information (Check Fentanyl Patch Placement) 1 ea QS N/A 07/31/16 00:00 08/30/16 00:00 08/04/16 08:55 1 EA Acetaminophen (Tylenol Tab) 650 mg Q4H PRN PO 07/30/16 19:00 08/29/16 18:59 Magnesium Hydroxide (Milk Of Magnesia Susp) 30 ml Q6H PRN PO 07/30/16 19:00 08/29/16 18:59 Diphenhydramine HCl (Benadryl Inj) 25 mg Q4H PRN IV 07/30/16 19:00 08/29/16 18:59 Al Hydrox/Mg Hydrox/ Simethicone 15 ml 15 ml Q4H PRN PO 07/30/16 19:00 08/29/16 18:59 08/01/16 18:35 15 ML Promethazine HCl/ Sodium Chloride (Phenergan Inj/ Nss 50ml) 50.5 ml @ 202 mls/hr Q4H PRN IV 07/30/16 19:00 08/29/16 18:59 Zolpidem Tartrate (Ambien Tab) 5 mg HSZ PRN PO 07/30/16 19:00 08/29/16 18:59 Ondansetron HCl (Zofran Inj) 4 mg Q6H PRN IV 07/30/16 19:00 08/29/16 18:59 08/02/16 19:35 4 MG Morphine Sulfate (MoRPHine SULFATE INJ) 2 mg Q2H PRN IV 07/30/16 19:00 08/13/16 18:59 08/03/16 14:16 2 MG Morphine Sulfate (MoRPHine SULFATE INJ) 4 mg Q2H PRN IV 07/30/16 19:00 08/13/16 18:59 08/04/16 12:11 4 MG Guaifenesin 600 mg 600 mg BID PO 07/30/16 20:34 08/29/16 20:59 08/04/16 08:53 600 MG Sodium Chloride (Nss 1000ml) 1,000 ml @ 125 mls/hr Q8H IV 07/30/16 21:15 08/29/16 17:22 08/04/16 05:59 125 MLS/HR Ipratropium [place] (Atrovent 0.02% 0.5MG/2.5ML Neb) 0.5 mg Q6R INH 07/31/16 03:00 08/30/16 02:59 08/03/16 15:00 0.5 MG Levalbuterol (Xopenex 1.25MG/ 0.5ML Neb) 1.25 mg Q6R INH 07/31/16 03:00 08/30/16 02:59 08/03/16 15:00 1.25 MG Ipratropium [place] (Atrovent 0.02% 0.5MG/2.5ML Neb) 0.5 mg Q2H PRN INH 07/30/16 21:15 08/29/16 21:14 Levalbuterol 1.25 mg 1.25 mg Q2H PRN INH 07/30/16 21:15 08/29/16 21:14 Lorazepam/Syringe (Ativan Inj/ Syringe) 1 ml @ 1 mls/min Q4H PRN IV 07/30/16 23:00 08/29/16 22:59 08/04/16 09:20 1 MLS/MIN Fentanyl (Duragesic Patch) 50 mcg Q3D@2100 TD 2/19/17 23:50 08/13/16 23:49 08/02/16 20:36 50 MCG Miscellaneous (Fentanyl Patch Remove & Waste) 1 ea Q3D@9 N/A 08/02/16 20:59 09/01/16 20:58 08/02/16 20:37 1 EA Miscellaneous Information (Check Fentanyl Patch Placement) 1 ea QS N/A 07/31/16 08:00 08/30/16 07:59 08/04/16 08:55 1 EA Fentanyl 100 mcg 100 mcg Q3D@2100 TD 08/02/16 21:00 08/16/16 20:59 08/02/16 20:36 100 MCG Levofloxacin/Prmx (Levaquin / D5W/ Premixed D5W) 150 ml @ 100 mls/hr DAILY@1400 IV 08/02/16 14:00 08/05/16 14:01 08/03/16 13:27 100 MLS/HR Ketorolac Tromethamine (Toradol Inj) 15 mg Q6H PRN IV. 08/03/16 18:00 08/08/16 17:59 Lidocaine (Lidoderm Patch 5%) 1 patch DAILY@09 TD 08/04/16 09:00 09/03/16 08:59 08/04/16 08:55 1 PATCH Miscellaneous 1 ea 1 ea DAILY@2100 N/A 08/04/16 21:00 09/03/16 20:59 Methylprednisolone Sodium Succinate/ Syringe (Solu-Medrol IV/ Syringe) 0.64 ml @ 1.5 mls/min Q6H IV 08/04/16 14:00 09/03/16 13:59 Laboratory Data Labs: Last 24 Hours Test 08/04/16 10:10 White Blood Count 18.08 K/uL Red Blood Count 2.89 M/uL Hemoglobin 9.3 g/dL Hematocrit 28.3 % Mean Corpuscular Volume 97.9 fL Mean Corpuscular Hemoglobin 32.2 pg Mean Corpuscular Hemoglobin Concent 32.9 g/dl Platelet Count 237 K/uL Mean Platelet Volume 9.1 fL Neutrophils (%) (Auto) 82.3 % Lymphocytes (%) (Auto) 5.4 % Monocytes (%) (Auto) 5.1 % Eosinophils (%) (Auto) 6.1 % Basophils (%) (Auto) 0.1 % Neutrophils # (Auto) 14.87 K/uL Lymphocytes # (Auto) 0.98 K/uL Monocytes # (Auto) 0.93 K/uL Eosinophils # (Auto) 1.11 K/uL Basophils # (Auto) 0.01 K/uL RDW Standard Deviation 79.9 fL RDW Coefficient of Variation 23.1 % Immature Granulocyte % (Auto) 1.0 % Immature Granulocyte # (Auto) 0.18 K/uL Nucleated RBC Absolute Count (auto) 0.04 K/uL Nucleated Red Blood Cells % 0.2 % Polychromasia 1+ Anisocytosis PRESENT Sodium Level 144 mmol/L Potassium Level 3.6 mmol/L Chloride Level 104 mmol/L Carbon Dioxide Level 34 mmol/L Anion Gap 6.0 mmol/L Blood Urea Nitrogen 11 mg/dl Creatinine 0.70 mg/dl Est Creatinine Clear Calc Drug Dose 105.8 ml/min Estimated GFR () 117.2 Estimated GFR (Non- 101.1 BUN/Creatinine Ratio 15.3 Random Glucose 87 mg/dl Calcium Level 7.8 mg/dl Assessment and Plan A 60 yo male comes with Malignant mesothelioma with bilateral pneumonia, pleural effusions, pathologic rib fractures--the patient will be admitted to the oncology unit. changed Solu-Medrol to 40 mg IV every 6 hours, cont levofloxacin 750 mg IV every 24 hours, stop zosyn, cont guaifenesin extended release 600 mg by mouth twice a day, and Xopenex with Atrovent nebulizer to use every 6 hours while awake and every 2 hours when necessary. Known to Dr Jensen and Dr Landin, has appt at [facility] Oncology, no chemoTx now due to pneumonia CT head: 1. Multifocal areas of subtle changes in density characteristics throughout both cerebral hemispheres. 2. Although possibly secondary to acute/subacute infarct, an MRI of the brain should be obtained with contrast enhancement to exclude metastatic change I discussed results with and patient and need of MRI, they want to wait for ordering MRI until talking to [place] oncologist Pleural effusion, parapneumonic vs malignant effusion sec to mesothelioma, consulted pulmonary for possible thoracentesis, however patient and family wants to wait till sunday to talk to oncologist from [place] regarding clinical trial mesothelioma treatment diarrhea: check cdiff gene Chronic pain syndrome with acute worsening secondary to pathologic rib fractures continue fentanyl patch 100 to 150g every 72 hours, and continue oxycodone at 10 mg by mouth increase from every 4 to every 2 hours when necessary. morphine sulfate 2-4 mg IV every 2 hours when necessary Anxiety lorazepam 1 mg by mouth at bedtime to 1 mg by mouth every 4 hours when necessary. GERD pantoprazole 40 mg by mouth daily. Constipation continue Senokot 2 tablets by mouth daily and MiraLAX 17 g by mouth daily. will consider palliative care consult regarding possible home hospice will need to address code status, may need to consult palliative care/hospice if continues to refuse thoracentesis Continued [facility] stay due to: multiple IV medications needed
[2016-08-04] MEDS: LEVOFLOXACIN / D5W 750 MG in PREMIXED IN D5W 150 ML IV SCH (13:57)
[2016-08-04] MEDS: KETOROLAC TROMETHAMINE 30 MG/ML VIAL IV. PRN (17:23)
--- NOTE | 2016-08-04 20:15 | Pain Management Consultation ---
Pain Management Consultation Date of Consultation Aug 04, 2016. Reason for Consultation Patient evaluated and orders written for pain. Full note to follow. Social / Work History Marital Status: Housing Status: lives with family Occupation: retired Allergies Coded Allergies: Adhesives (Verified Allergy, Intermediate, rash blisters, 07/30/16) Hydromorphone (Verified Adverse Reaction, Intermediate, Severe N/V, ) HIS FAMILY DOES NOT WANT HIM TO GET DILAUDID BECAUSE IT MAKES HIM VOMIT Medications Current Inpatient Medications Medications (Trade) Dose Ordered Sig/Chao Route Start Time Stop Time Status Last Admin Dose Admin Folic Acid (Folvite Tab) 1 mg DAILY PO 07/31/16 08:00 08/30/16 08:59 08/04/16 08:53 1 MG Lorazepam (Ativan Tab) 1 mg HS PO 07/30/16 21:00 08/29/16 20:59 08/03/16 22:17 1 MG Magnesium Oxide (Mag-Ox Tab) 400 mg Q12 PO 07/30/16 21:00 08/29/16 20:59 08/04/16 08:53 400 MG Polyethylene (Miralax Powder Packet) 17 gm DAILY PO 07/31/16 08:00 08/30/16 08:59 08/03/16 08:40 17 GM Promethazine HCl (Phenergan Tab) 25 mg Q6H PRN PO 07/30/16 19:00 08/29/16 18:59 Senna/Docusate Sodium (Senokot S Tab) 2 tab DAILY PO 07/31/16 08:00 08/30/16 08:59 08/03/16 08:41 2 TAB Pantoprazole Sodium (Protonix Tab) 40 mg QAM PO 07/31/16 08:00 08/30/16 08:59 08/04/16 08:53 40 MG Miscellaneous (Fentanyl Patch Remove & Waste) 1 ea Q3D N/A 08/02/16 21:00 09/01/16 20:59 08/02/16 20:39 1 EA Miscellaneous Information (Check Fentanyl Patch Placement) 1 ea QS N/A 07/31/16 00:00 08/30/16 00:00 08/04/16 15:53 1 EA Acetaminophen (Tylenol Tab) 650 mg Q4H PRN PO 07/30/16 19:00 08/29/16 18:59 Magnesium Hydroxide (Milk Of Magnesia Susp) 30 ml Q6H PRN PO 07/30/16 19:00 08/29/16 18:59 Diphenhydramine HCl (Benadryl Inj) 25 mg Q4H PRN IV 07/30/16 19:00 08/29/16 18:59 Al Hydrox/Mg Hydrox/ Simethicone 15 ml 15 ml Q4H PRN PO 07/30/16 19:00 08/29/16 18:59 08/01/16 18:35 15 ML Promethazine HCl/ Sodium Chloride (Phenergan Inj/ Nss 50ml) 50.5 ml @ 202 mls/hr Q4H PRN IV 07/30/16 19:00 08/29/16 18:59 Zolpidem Tartrate (Ambien Tab) 5 mg HSZ PRN PO 07/30/16 19:00 08/29/16 18:59 Ondansetron HCl (Zofran Inj) 4 mg Q6H PRN IV 07/30/16 19:00 08/29/16 18:59 08/02/16 19:35 4 MG Morphine Sulfate (MoRPHine SULFATE INJ) 2 mg Q2H PRN IV 07/30/16 19:00 08/13/16 18:59 08/03/16 14:16 2 MG Morphine Sulfate (MoRPHine SULFATE INJ) 4 mg Q2H PRN IV 07/30/16 19:00 08/13/16 18:59 08/04/16 18:24 4 MG Guaifenesin 600 mg 600 mg BID PO 07/30/16 20:34 08/29/16 20:59 08/04/16 08:53 600 MG Sodium Chloride (Nss 1000ml) 1,000 ml @ 125 mls/hr Q8H IV 07/30/16 21:15 08/29/16 17:22 08/04/16 13:57 125 MLS/HR Ipratropium [place] (Atrovent 0.02% 0.5MG/2.5ML Neb) 0.5 mg Q6R INH 07/31/16 03:00 08/30/16 02:59 08/04/16 14:14 0.5 MG Levalbuterol (Xopenex 1.25MG/ 0.5ML Neb) 1.25 mg Q6R INH 07/31/16 03:00 08/30/16 02:59 08/04/16 14:14 1.25 MG Ipratropium [place] (Atrovent 0.02% 0.5MG/2.5ML Neb) 0.5 mg Q2H PRN INH 07/30/16 21:15 08/29/16 21:14 Levalbuterol 1.25 mg 1.25 mg Q2H PRN INH 07/30/16 21:15 08/29/16 21:14 Lorazepam/Syringe (Ativan Inj/ Syringe) 1 ml @ 1 mls/min Q4H PRN IV 07/30/16 23:00 08/29/16 22:59 08/04/16 18:24 1 MLS/MIN Fentanyl (Duragesic Patch) 50 mcg Q3D@2100 TD 07/30/16 23:50 08/13/16 23:49 08/02/16 20:36 50 MCG Miscellaneous (Fentanyl Patch Remove & Waste) 1 ea Q3D@2059 N/A 08/02/16 20:59 09/01/16 20:58 08/02/16 20:37 1 EA Miscellaneous Information (Check Fentanyl Patch Placement) 1 ea QS N/A 07/31/16 08:00 08/30/16 07:59 08/04/16 15:54 1 EA Fentanyl 100 mcg 100 mcg Q3D@2100 TD 08/02/16 21:00 08/16/16 20:59 08/02/16 20:36 100 MCG Levofloxacin/Prmx (Levaquin / D5W/ Premixed D5W) 150 ml @ 100 mls/hr DAILY@1400 IV 08/02/16 14:00 08/05/16 14:01 08/04/16 13:57 100 MLS/HR Lidocaine (Lidoderm Patch 5%) 1 patch DAILY@09 TD 08/04/16 09:00 09/03/16 08:59 08/04/16 08:55 1 PATCH Miscellaneous 1 ea 1 ea DAILY@2100 N/A 08/04/16 21:00 09/03/16 20:59 Methylprednisolone Sodium Succinate/ Syringe (Solu-Medrol IV/ Syringe) 0.64 ml @ 1.5 mls/min Q6H IV 08/04/16 14:00 09/03/16 13:59 08/04/16 14:01 1.5 MLS/MIN Ketorolac Tromethamine (Toradol Inj) 30 mg Q6H PRN IV. 08/04/16 18:00 08/09/16 17:59 08/04/16 17:23 30 MG Physical Exam Height & Weight: Height 5 feet, 8.00 inches. Weight 75.000 (Kilograms) 165 (Pounds) Last Vital Signs Documentation Date Time Temp Pulse Resp B/P Pulse Ox O2 Delivery O2 Flow Rate FiO2 08/04/16 19:38 36.5 90 18 121/78 99 Nasal Cannula 3.0 Laboratory / Imaging Results Laboratory Results (Last CBC): 08/04/16 10:10 Red Blood Count 2.89 L, Mean Corpuscular Volume 97.9, Mean Corpuscular Hemoglobin 32.2, Mean Corpuscular Hemoglobin Concent 32.9, Mean Platelet Volume 9.1, Neutrophils (%) (Auto) 82.3, Lymphocytes (%) (Auto) 5.4, Monocytes (%) ( Auto) 5.1, Eosinophils (%) (Auto) 6.1, Basophils (%) (Auto) 0.1, Neutrophils # ( Auto) 14.87 H, Lymphocytes # (Auto) 0.98 L, Monocytes # (Auto) 0.93 H, Eosinophils # (Auto) 1.11 H, Basophils # (Auto) 0.01 Assessment 1. [] 2. [] 3. [] 4. [] 5. [] Recommendations 1. [] 2. [] 3. [] 4. [] 5. [] Dragon Voice Recognition This chart was completed in part utilizing [employer] Voice Recognition Software. Random word insertions, pronoun errors, and incomplete sentences are an occasional consequence of this system due to software limitations and ambient noise. Any questions or concerns about the content, text or information contained within the body of this dictation should be directly addressed to the provider for clarification.
[2016-08-04] MEDS: LORAZEPAM 1 MG TAB PO SCH (21:30)
[2016-08-04] MEDS ORDERED: GABAPENTIN 100 MG CAP PO STA (22:16)
[2016-08-04] MEDS: FENTANYL 12 MCG/HR TDSY TD SCH (22:17)
[2016-08-05] VITALS (8 sets, daily range): BP systolic 112–126; BP diastolic 73–81; PULSE 86–106; TEMP 36.4–36.9; O2SAT 95–100
[2016-08-05] MEDS: SODIUM CHLORIDE 0.9% 1000ML 1,000 ML IV SCH ×4 (00:24→21:12)
[2016-08-05] MEDS: CHECK FENTANYL PATCH PLACEMENT SCH ×9 (00:25→15:11)
[2016-08-05] MEDS: LORAZEPAM INJ 1 MG in SYRINGE 0.5 ML IV PRN (00:44)
[2016-08-05] MEDS: KETOROLAC TROMETHAMINE 30 MG/ML VIAL IV. PRN (00:46)
[2016-08-05] MEDS: METHYLPREDNISOLONE IV 40 MG in SYRINGE 0 ML IV SCH ×4 (01:12→21:10)
[2016-08-05] MEDS: MoRPHine SULFATE 4 MG/ML 1 ML CARP\\VIAL IV PRN ×6 (01:13→22:05)
[2016-08-05] MEDS: IPRATROPIUM BROMIDE NEB SOLN 0.02% 2.5 ML VIAL INH SCH ×4 (02:39→19:30)
[2016-08-05] MEDS: LEVALBUTEROL 1.25MG/0.5ML NEB INH SCH ×4 (02:39→19:30)
[2016-08-05 06:12] LABS: HEMATOCRIT 34.2 % (42-52); MEAN CELL VOLUME 100.3 fL (80-100); MEAN CORPUSCULAR HEMOGLOBIN 33.1 pg (25-34); MEAN PLATELET VOLUME 9.6 fL (7.4-10.4); PLATELET COUNT 295 K/uL (130-400); RED BLOOD COUNT 3.41 M/uL (4.7-6.1)
[2016-08-05 06:36] LABS: ANISOCYTOSIS PRESENT; BASO % 0.1 %; BASO ABS # 0.02 K/uL (0-0.2); COMPLETE YES; EOS % 0.2 %; IG% 0.8 %; LYMPH % 3.1 %; LYMPH ABS # 0.68 K/uL (1.2-3.4); MONO % 1.5 %; NEUT % 94.3 %; POLYCHROMASIA 1+; TEAR DROP CELLS 1+; VACUOLIZATION 1+
[2016-08-05 06:59] LABS: BUN/CREATININE RATIO 15.1 (10-20); CALCIUM 8.2 mg/dl (8.5-10.1); CREATININE 0.78 mg/dl (0.60-1.40); POTASSIUM 4.2 mmol/L (3.5-5.1)
[2016-08-05] MEDS: DOCUSATE SODIUM/SENNA 50/8.6MG TAB PO SCH (10:50)
[2016-08-05] MEDS: POLYETHYLENE (MIRALAX) 17 GM PACK PO SCH (10:50)
[2016-08-05] MEDS: LIDODERM (LIDOCAINE) PATCH 5% TD SCH (10:51)
[2016-08-05] MEDS: GABAPENTIN 100 MG CAP PO SCH ×3 (10:52→21:10)
[2016-08-05] MEDS: TAPENTADOL HCL 50 MG TAB PO PRN ×3 (10:56→21:09)
[2016-08-05] MEDS: GUAIFENESIN 200 MG TAB PO SCH ×2 (11:32→21:08)
--- NOTE | 2016-08-05 13:29 | Pain Management Consultation ---
Pain Management Consultation Date of Consultation Aug 05, 2016. Reason for Consultation Assistance with pain management. History Mr. Troy Johnston is a 60 male history of mesothelioma. He is admitted to [facility] with pleural effusion, chest pain or shortness of breath. Consultation was requested for assistance in managing his right-sided chest pain. He is currently being treated with transdermal fentanyl at 50 g every 6 hours, oxycodone, as his IV morphine. He was seen yesterday evening, in presence of his family members. Although he was awake, it was not fully cooperative and was unable to answer questions fully. Therefore, this was obtained from the chart and family members. His son and daughter report that he is expressing chronic right-sided chest pain since he was diagnosed of mesothelioma sometime in March or April 2016. Since then, he has been treated with oxycodone as well as transdermal fentanyl. They report to the oxycodone was not efficacious and with the transdermal fentanyl dose 150 g every 6 hours, EMG is reasonable pain relief for up to 48 hours after which he reports increased pain. He has also been hydromorphone orally and intravenusly, but experienced nausea and therfore it was discontinued. Pain is reported to be primarily on the left side of his chest as well as in the paraspinal region with thoracic spine. They also report that he complains typically of substernal chest pain which she describes as a burning sensation. Pain is characterized as a burning sensation on the left side of the chest as well as achy sensation. Symptoms exacerbated by deep breathing and coughing as well as movement. He also reports burning sensation in the lateral chest anterior chest Past Medical/Surgical History (1) Hydropneumothorax (2) Port-a-cath in place (3) History of prostate cancer (4) Hypoxia (5) Vomiting (6) Mesothelioma (7) Fracture of rib of right side (8) Sarcomatoid carcinoma of lung Social / Work History Marital Status: Housing Status: lives with family Occupation: retired Allergies Coded Allergies: Adhesives (Verified Allergy, Intermediate, rash blisters, 07/30/16) Hydromorphone (Verified Adverse Reaction, Intermediate, Severe N/V, ) HIS FAMILY DOES NOT WANT HIM TO GET DILAUDID BECAUSE IT MAKES HIM VOMIT Medications Current Inpatient Medications Medications (Trade) Dose Ordered Sig/Chao Route Start Time Stop Time Status Last Admin Dose Admin Folic Acid (Folvite Tab) 1 mg DAILY PO 07/31/16 08:00 08/30/16 08:59 08/04/16 08:53 1 MG Lorazepam (Ativan Tab) 1 mg HS PO 07/30/16 21:00 08/29/16 20:59 08/04/16 21:30 1 MG Magnesium Oxide (Mag-Ox Tab) 400 mg Q12 PO 07/30/16 21:00 08/29/16 20:59 08/04/16 21:28 400 MG Polyethylene (Miralax Powder Packet) 17 gm DAILY PO 07/31/16 08:00 08/30/16 08:59 08/03/16 08:40 17 GM Promethazine HCl (Phenergan Tab) 25 mg Q6H PRN PO 07/30/16 19:00 08/29/16 18:59 Senna/Docusate Sodium (Senokot S Tab) 2 tab DAILY PO 07/31/16 08:00 08/30/16 08:59 08/03/16 08:41 2 TAB Pantoprazole Sodium (Protonix Tab) 40 mg QAM PO 07/31/16 08:00 08/30/16 08:59 08/04/16 08:53 40 MG Miscellaneous (Fentanyl Patch Remove & Waste) 1 ea Q3D N/A 08/02/16 21:00 09/01/16 20:59 08/02/16 20:39 1 EA Miscellaneous Information (Check Fentanyl Patch Placement) 1 ea QS N/A 07/31/16 00:00 08/30/16 00:00 08/05/16 10:56 1 EA Acetaminophen (Tylenol Tab) 650 mg Q4H PRN PO 07/30/16 19:00 08/29/16 18:59 Magnesium Hydroxide (Milk Of Magnesia Susp) 30 ml Q6H PRN PO 07/30/16 19:00 08/29/16 18:59 Diphenhydramine HCl (Benadryl Inj) 25 mg Q4H PRN IV 07/30/16 19:00 08/29/16 18:59 Al Hydrox/Mg Hydrox/ Simethicone 15 ml 15 ml Q4H PRN PO 07/30/16 19:00 08/29/16 18:59 08/01/16 18:35 15 ML Promethazine HCl/ Sodium Chloride (Phenergan Inj/ Nss 50ml) 50.5 ml @ 202 mls/hr Q4H PRN IV 07/30/16 19:00 08/29/16 18:59 Zolpidem Tartrate (Ambien Tab) 5 mg HSZ PRN PO 07/30/16 19:00 08/29/16 18:59 Ondansetron HCl (Zofran Inj) 4 mg Q6H PRN IV 07/30/16 19:00 08/29/16 18:59 08/02/16 19:35 4 MG Morphine Sulfate (MoRPHine SULFATE INJ) 2 mg Q2H PRN IV 07/30/16 19:00 08/13/16 18:59 08/03/16 14:16 2 MG Morphine Sulfate (MoRPHine SULFATE INJ) 4 mg Q2H PRN IV 07/30/16 19:00 08/13/16 18:59 08/05/16 11:44 4 MG Guaifenesin 600 mg 600 mg BID PO 07/30/16 20:34 08/29/16 20:59 08/04/16 21:27 600 MG Sodium Chloride (Nss 1000ml) 1,000 ml @ 125 mls/hr Q8H IV 07/30/16 21:15 08/29/16 17:22 08/05/16 05:28 125 MLS/HR Ipratropium [place] (Atrovent 0.02% 0.5MG/2.5ML Neb) 0.5 mg Q6R INH 07/31/16 03:00 08/30/16 02:59 08/05/16 07:52 0.5 MG Levalbuterol (Xopenex 1.25MG/ 0.5ML Neb) 1.25 mg Q6R INH 07/31/16 03:00 08/30/16 02:59 08/05/16 07:52 1.25 MG Ipratropium [place] (Atrovent 0.02% 0.5MG/2.5ML Neb) 0.5 mg Q2H PRN INH 07/30/16 21:15 08/29/16 21:14 Levalbuterol 1.25 mg 1.25 mg Q2H PRN INH 07/30/16 21:15 08/29/16 21:14 Lorazepam/Syringe (Ativan Inj/ Syringe) 1 ml @ 1 mls/min Q4H PRN IV 07/30/16 23:00 08/29/16 22:59 08/05/16 00:44 1 MLS/MIN Fentanyl (Duragesic Patch) 50 mcg Q3D@2100 TD 07/30/16 23:50 08/13/16 23:49 08/02/16 20:36 50 MCG Miscellaneous (Fentanyl Patch Remove & Waste) 1 ea Q3D@2059 N/A 08/02/16 20:59 09/01/16 20:58 08/02/16 20:37 1 EA Miscellaneous Information (Check Fentanyl Patch Placement) 1 ea QS N/A 07/31/16 08:00 08/30/16 07:59 08/05/16 10:56 1 EA Fentanyl 100 mcg 100 mcg Q3D@2100 TD 08/02/16 21:00 08/16/16 20:59 08/02/16 20:36 100 MCG Levofloxacin/Prmx (Levaquin / D5W/ Premixed D5W) 150 ml @ 100 mls/hr DAILY@1400 IV 08/02/16 14:00 08/05/16 14:01 08/04/16 13:57 100 MLS/HR Lidocaine (Lidoderm Patch 5%) 1 patch DAILY@09 TD 08/04/16 09:00 09/03/16 08:59 08/05/16 10:51 1 PATCH Miscellaneous 1 ea 1 ea DAILY@2100 N/A 08/04/16 21:00 09/03/16 20:59 08/04/16 21:28 1 EA Methylprednisolone Sodium Succinate/ Syringe (Solu-Medrol IV/ Syringe) 0.64 ml @ 1.5 mls/min Q6H IV 08/04/16 14:00 09/03/16 13:59 08/05/16 10:47 1.5 MLS/MIN Ketorolac Tromethamine (Toradol Inj) 30 mg Q6H PRN IV. 08/04/16 18:00 08/09/16 17:59 08/05/16 00:46 30 MG Fentanyl (Duragesic Patch) 12 mcg Q3D@2100 TD 08/04/16 20:15 08/18/16 20:14 08/04/16 22:17 12 MCG Miscellaneous (Fentanyl Patch Remove & Waste) 1 ea Q3D@2058 N/A 08/05/16 20:59 09/04/16 20:58 Miscellaneous Information (Check Fentanyl Patch Placement) 1 ea QS N/A 08/05/16 00:00 09/04/16 00:00 08/05/16 10:56 1 EA Tapentadol (Nucynta Tab) 50 mg Q4H PRN PO 08/04/16 20:15 08/18/16 20:14 08/05/16 10:56 50 MG Gabapentin (Neurontin Cap) 100 mg TID PO 08/05/16 08:00 09/04/16 07:59 08/05/16 10:52 100 MG Review of Systems Appears older then his stated age. Has mild sob at rest. In pain with deep breathing and coughing. Exam of thoracic spine shows loss of thoracic kyphosis. There is diffuse tenderness in the right paraspinous region of the mid thoracic spine. Ther is hyperpathia over the mid right lateral chest. There is tenderness to palpation of the ribs on the right side over the mid thorax. Lung sounds are diminished on the right side. Physical Exam Height & Weight: Height 5 feet, 8.00 inches. Weight 72.400 (Kilograms) 159 (Pounds) Last Vital Signs Documentation Date Time Temp Pulse Resp B/P Pulse Ox O2 Delivery O2 Flow Rate FiO2 08/05/16 11:54 36.9 97 20 120/81 97 Nasal Cannula 3.0 Laboratory / Imaging Results Laboratory Results (Last CBC): 08/05/16 05:40 Red Blood Count 3.41 L, Mean Corpuscular Volume 100.3 H, Mean Corpuscular Hemoglobin 33.1, Mean Corpuscular Hemoglobin Concent 33.0, Mean Platelet Volume 9.6, Neutrophils (%) (Auto) 94.3, Lymphocytes (%) (Auto) 3.1, Monocytes (%) ( Auto) 1.5, Eosinophils (%) (Auto) 0.2, Basophils (%) (Auto) 0.1, Neutrophils # ( Auto) 20.55 H, Lymphocytes # (Auto) 0.68 L, Monocytes # (Auto) 0.33, Eosinophils # (Auto) 0.04, Basophils # (Auto) 0.02 Assessment 1. Mesothelioma 2. Hydropneumothorax 3. Rib fractures 4. Intercostal neuralgia. Recommendations 1. Increase fentanyl chery to 162 mcg q 72 hrs x 48 hrs and reassess. 2. Add Tapentedol immediate release to his regime for breakthrough pain. 3. If he continues to experience pain despite adjustment of his medications or experiences side effects, he can undergo intercostal nerve blocks/RFA as outpatient. 4. Add gabapentin for anti neuropathic effect. 5. Will follow. [employer] Voice Recognition This chart was completed in part utilizing [employer] Voice Recognition Software. Random word insertions, pronoun errors, and incomplete sentences are an occasional consequence of this system due to software limitations and ambient noise. Any questions or concerns about the content, text or information contained within the body of this dictation should be directly addressed to the provider for clarification.
[2016-08-05] MEDS: LEVOFLOXACIN / D5W 750 MG in PREMIXED IN D5W 150 ML IV SCH (13:43)
[2016-08-05] MEDS: PANTOprazole SOD 40 MG TAB PO SCH (13:45)
[2016-08-05] MEDS: MAGNESIUM OXIDE 400 MG TAB PO SCH ×2 (13:46→21:09)
--- NOTE | 2016-08-05 14:30 | Progress Note ---
Subjective Subjective Date of Service: Aug 05, 2016. Pt evaluation today including: conversation w/ patient, conversation w/ family , physical exam, chart review, review of studies, review of inpatient medication list Notes: met with family, patient wants thoracentesis done Problem List Medical Problems: (1) Fracture of rib of right side Status: Acute (2) Lumbago Status: Chronic (3) Mesothelioma Status: Chronic (4) Pleuritic chest pain Status: Acute (5) Reflux Esophagitis Status: Chronic (6) Right lower lobe lung mass Status: Acute (7) Sepsis Status: Acute Review of Systems Constitutional: No fever Eyes: No worsening of vision ENT: No hearing loss Respiratory: No cough Cardiac: No chest pain Abdomen: No pain Male : No dysuria Neurologic: No memory loss Psychiatric: No depression symptoms Physical Exam Vital Signs Vital Signs Past 24 Hours: Date Time Temp Pulse Resp B/P Pulse Ox O2 Delivery O2 Flow Rate FiO2 08/05/16 11:54 36.9 97 20 120/81 97 Nasal Cannula 3.0 08/05/16 08:45 Nasal Cannula 3.0 08/05/16 08:10 36.4 88 20 124/81 99 3.0 08/05/16 07:52 92 20 98 Nasal Cannula 3.0 08/05/16 03:53 36.6 86 18 126/81 100 Nasal Cannula 3.0 08/05/16 00:00 Nasal Cannula 3.0 08/04/16 23:51 36.6 83 16 108/69 100 Nasal Cannula 3.0 08/04/16 19:38 36.5 90 18 121/78 99 Nasal Cannula 3.0 08/04/16 16:00 99 Nasal Cannula 3.0 08/04/16 15:05 36.6 104 18 122/79 96 Physical Exam: General Appearance: no apparent distress Eyes: bilateral eyes normal inspection ENT: hearing grossly normal, pharynx normal Neck: supple Respiratory/Chest: chest non-tender, + decreased breath sounds, + rales Cardiovascular: no edema Abdomen: non tender Extremities: normal range of motion Neurologic/Psychiatric: alert Medications Medications: Current Inpatient Medications Medications (Trade) Dose Ordered Sig/[place] Route Start Time Stop Time Status Last Admin Dose Admin Folic Acid (Folvite Tab) 1 mg DAILY PO 07/31/16 08:00 08/30/16 08:59 08/05/16 13:45 1 MG Lorazepam (Ativan Tab) 1 mg HS PO 07/30/16 21:00 08/29/16 20:59 08/04/16 21:30 1 MG Magnesium Oxide (Mag-Ox Tab) 400 mg Q12 PO 07/30/16 21:00 08/29/16 20:59 08/05/16 13:46 400 MG Polyethylene (Miralax Powder Packet) 17 gm DAILY PO 07/31/16 08:00 08/30/16 08:59 08/03/16 08:40 17 GM Promethazine HCl (Phenergan Tab) 25 mg Q6H PRN PO 07/30/16 19:00 08/29/16 18:59 Senna/Docusate Sodium (Senokot S Tab) 2 tab DAILY PO 07/31/16 08:00 08/30/16 08:59 08/03/16 08:41 2 TAB Pantoprazole Sodium (Protonix Tab) 40 mg QAM PO 07/31/16 08:00 08/30/16 08:59 08/05/16 13:45 40 MG Miscellaneous (Fentanyl Patch Remove & Waste) 1 ea Q3D N/A 08/02/16 21:00 09/01/16 20:59 08/02/16 20:39 1 EA Miscellaneous Information (Check Fentanyl Patch Placement) 1 ea QS N/A 07/31/16 00:00 08/30/16 00:00 08/05/16 10:56 1 EA Acetaminophen (Tylenol Tab) 650 mg Q4H PRN PO 07/30/16 19:00 08/29/16 18:59 Magnesium Hydroxide (Milk Of Magnesia Susp) 30 ml Q6H PRN PO 07/30/16 19:00 08/29/16 18:59 Diphenhydramine HCl (Benadryl Inj) 25 mg Q4H PRN IV 07/30/16 19:00 08/29/16 18:59 Al Hydrox/Mg Hydrox/ Simethicone 15 ml 15 ml Q4H PRN PO 07/30/16 19:00 08/29/16 18:59 08/01/16 18:35 15 ML Promethazine HCl/ Sodium Chloride (Phenergan Inj/ Nss 50ml) 50.5 ml @ 202 mls/hr Q4H PRN IV 07/30/16 19:00 08/29/16 18:59 Zolpidem Tartrate (Ambien Tab) 5 mg HSZ PRN PO 07/30/16 19:00 08/29/16 18:59 Ondansetron HCl (Zofran Inj) 4 mg Q6H PRN IV 07/30/16 19:00 08/29/16 18:59 08/02/16 19:35 4 MG Morphine Sulfate (MoRPHine SULFATE INJ) 2 mg Q2H PRN IV 07/30/16 19:00 08/13/16 18:59 08/03/16 14:16 2 MG Morphine Sulfate (MoRPHine SULFATE INJ) 4 mg Q2H PRN IV 07/30/16 19:00 08/13/16 18:59 08/05/16 11:44 4 MG Guaifenesin 600 mg 600 mg BID PO 07/30/16 20:34 08/29/16 20:59 08/04/16 21:27 600 MG Sodium Chloride (Nss 1000ml) 1,000 ml @ 125 mls/hr Q8H IV 07/30/16 21:15 08/29/16 17:22 08/05/16 13:42 125 MLS/HR Ipratropium [place] (Atrovent 0.02% 0.5MG/2.5ML Neb) 0.5 mg Q6R INH 07/31/16 03:00 08/30/16 02:59 08/05/16 07:52 0.5 MG Levalbuterol (Xopenex 1.25MG/ 0.5ML Neb) 1.25 mg Q6R INH 07/31/16 03:00 08/30/16 02:59 08/05/16 07:52 1.25 MG Ipratropium [place] (Atrovent 0.02% 0.5MG/2.5ML Neb) 0.5 mg Q2H PRN INH 07/30/16 21:15 08/29/16 21:14 Levalbuterol 1.25 mg 1.25 mg Q2H PRN INH 07/30/16 21:15 08/29/16 21:14 Lorazepam/Syringe (Ativan Inj/ Syringe) 1 ml @ 1 mls/min Q4H PRN IV 07/30/16 23:00 08/29/16 22:59 08/05/16 00:44 1 MLS/MIN Fentanyl (Duragesic Patch) 50 mcg Q3D@2100 TD 07/30/16 23:50 08/13/16 23:49 08/02/16 20:36 50 MCG Miscellaneous (Fentanyl Patch Remove & Waste) 1 ea Q3D@2059 N/A 08/02/16 20:59 09/01/16 20:58 08/02/16 20:37 1 EA Miscellaneous Information (Check Fentanyl Patch Placement) 1 ea QS N/A 07/31/16 08:00 08/30/16 07:59 08/05/16 10:56 1 EA Fentanyl (Duragesic Patch) 100 mcg Q3D@2100 TD 08/02/16 21:00 08/16/16 20:59 08/02/16 20:36 100 MCG Lidocaine (Lidoderm Patch 5%) 1 patch DAILY@09 TD 08/04/16 09:00 09/03/16 08:59 08/05/16 10:51 1 PATCH Miscellaneous 1 ea 1 ea DAILY@2100 N/A 08/04/16 21:00 09/03/16 20:59 08/04/16 21:28 1 EA Methylprednisolone Sodium Succinate/ Syringe (Solu-Medrol IV/ Syringe) 0.64 ml @ 1.5 mls/min Q6H IV 08/04/16 14:00 09/03/16 13:59 08/05/16 13:44 1.5 MLS/MIN Ketorolac Tromethamine (Toradol Inj) 30 mg Q6H PRN IV. 08/04/16 18:00 08/09/16 17:59 08/05/16 00:46 30 MG Fentanyl (Duragesic Patch) 12 mcg Q3D@2100 TD 08/04/16 20:15 08/18/16 20:14 08/04/16 22:17 12 MCG Miscellaneous (Fentanyl Patch Remove & Waste) 1 ea Q3D@9 N/A 08/05/16 20:59 09/04/16 20:58 Miscellaneous Information (Check Fentanyl Patch Placement) 1 ea QS N/A 08/05/16 00:00 09/04/16 00:00 08/05/16 10:56 1 EA Tapentadol (Nucynta Tab) 50 mg Q4H PRN PO 2/24/17 20:15 08/18/16 20:14 08/05/16 10:56 50 MG Gabapentin (Neurontin Cap) 100 mg TID PO 08/05/16 08:00 09/04/16 07:59 08/05/16 13:46 100 MG Laboratory Data Labs: Last 24 Hours Test 08/05/16 05:40 White Blood Count 21.80 K/uL Red Blood Count 3.41 M/uL Hemoglobin 11.3 g/dL Hematocrit 34.2 % Mean Corpuscular Volume 100.3 fL Mean Corpuscular Hemoglobin 33.1 pg Mean Corpuscular Hemoglobin Concent 33.0 g/dl Platelet Count 295 K/uL Mean Platelet Volume 9.6 fL Neutrophils (%) (Auto) 94.3 % Lymphocytes (%) (Auto) 3.1 % Monocytes (%) (Auto) 1.5 % Eosinophils (%) (Auto) 0.2 % Basophils (%) (Auto) 0.1 % Neutrophils # (Auto) 20.55 K/uL Lymphocytes # (Auto) 0.68 K/uL Monocytes # (Auto) 0.33 K/uL Eosinophils # (Auto) 0.04 K/uL Basophils # (Auto) 0.02 K/uL RDW Standard Deviation 80.6 fL RDW Coefficient of Variation 23.1 % Immature Granulocyte % (Auto) 0.8 % Immature Granulocyte # (Auto) 0.18 K/uL Nucleated RBC Absolute Count (auto) 0.02 K/uL Nucleated Red Blood Cells % 0.1 % Toxic Vacuolation 1+ Polychromasia 1+ Anisocytosis PRESENT Tear Drop Cells 1+ Sodium Level 139 mmol/L Potassium Level 4.2 mmol/L Chloride Level 100 mmol/L Carbon Dioxide Level 31 mmol/L Anion Gap 8.0 mmol/L Blood Urea Nitrogen 12 mg/dl Creatinine 0.78 mg/dl Est Creatinine Clear Calc Drug Dose 95.0 ml/min Estimated GFR () 112.1 Estimated GFR (Non- 96.7 BUN/Creatinine Ratio 15.1 Random Glucose 133 mg/dl Calcium Level 8.2 mg/dl Assessment and Plan A 60 yo male comes with Malignant mesothelioma with bilateral pneumonia, pleural effusions, pathologic rib fractures--the patient will be admitted to the oncology unit. changed Solu-Medrol to 40 mg IV every 6 hours, cont levofloxacin 750 mg IV every 24 hours, stop zosyn, cont guaifenesin extended release 600 mg by mouth twice a day, and Xopenex with Atrovent nebulizer to use every 6 hours while awake and every 2 hours when necessary. Known to Dr Jensen and Dr Landin, has appt at [facility] Oncology, no chemoTx now due to pneumonia CT head: 1. Multifocal areas of subtle changes in density characteristics throughout both cerebral hemispheres. 2. Although possibly secondary to acute/subacute infarct, an MRI of the brain should be obtained with contrast enhancement to exclude metastatic change I discussed results with and patient and need of MRI, family do not want MRI Pleural effusion, parapneumonic vs malignant effusion sec to mesothelioma, consulted pulmonary for possible thoracentesis, diarrhea: check cdiff gene Chronic pain syndrome with acute worsening secondary to pathologic rib fractures continue fentanyl patch 100 to 150g every 72 hours, and continue oxycodone at 10 mg by mouth increase from every 4 to every 2 hours when necessary. morphine sulfate 2-4 mg IV every 2 hours when necessary Anxiety lorazepam 1 mg by mouth at bedtime to 1 mg by mouth every 4 hours when necessary. GERD pantoprazole 40 mg by mouth daily. Constipation continue Senokot 2 tablets by mouth daily and MiraLAX 17 g by mouth daily. met with family, patient wants thoracentesis done for palliative purposes to make his breathing better family talked to oncologist (Dr Easley) from [place] regarding clinical trial mesothelioma treatment, he said he does not qualify for trial treatments. FAmily and patient wants to have thoracentesis done and then go home with hospice next week, they requested to continue all treatments until thoracentesis is done palliative care consult regarding possible home hospice Continued [facility] stay due to: multiple IV medications needed
[2016-08-05] MEDS ORDERED: FENTANYL PATCH REMOVE & WASTE SCH (20:59)
[2016-08-05] MEDS: LORAZEPAM 1 MG TAB PO SCH (21:08)
[2016-08-05] MEDS: FENTANYL 50 MCG/HR TDSY TD SCH (21:11)
[2016-08-05] MEDS: FENTANYL 100 MCG/HR TDSY TD SCH (21:11)
[2016-08-05] MEDS: FENTANYL PATCH REMOVE & WASTE SCH ×2 (21:16→21:17)
[2016-08-05] MEDS: FENTANYL 12 MCG/HR TDSY TD SCH (21:20)
[2016-08-06] VITALS (10 sets, daily range): BP systolic 118–144; BP diastolic 68–86; PULSE 77–108; TEMP 36.4–36.7; O2SAT 90–100
[2016-08-06] MEDS: MoRPHine SULFATE 4 MG/ML 1 ML CARP\\VIAL IV PRN (00:25)
[2016-08-06] MEDS: LORAZEPAM INJ 1 MG in SYRINGE 0.5 ML IV PRN ×2 (00:26→19:35)
[2016-08-06] MEDS: CHECK FENTANYL PATCH PLACEMENT SCH ×9 (00:28→15:56)
[2016-08-06] MEDS: IPRATROPIUM BROMIDE NEB SOLN 0.02% 2.5 ML VIAL INH SCH ×4 (02:03→18:14)
[2016-08-06] MEDS: METHYLPREDNISOLONE IV 40 MG in SYRINGE 0 ML IV SCH ×4 (02:03→19:35)
[2016-08-06] MEDS: LEVALBUTEROL 1.25MG/0.5ML NEB INH SCH ×4 (02:03→18:14)
[2016-08-06] MEDS: MoRPHine SULFATE 2 MG/ML CARP IV PRN (03:49)
[2016-08-06] MEDS: SODIUM CHLORIDE 0.9% 1000ML 1,000 ML IV SCH ×3 (05:55→21:21)
[2016-08-06] MEDS: TAPENTADOL HCL 50 MG TAB PO PRN ×4 (06:09→22:25)
[2016-08-06] MEDS: GABAPENTIN 100 MG CAP PO SCH ×3 (08:33→22:26)
[2016-08-06] MEDS: GUAIFENESIN 200 MG TAB PO SCH ×2 (08:33→22:26)
[2016-08-06 08:34] LABS: BASO ABS # 0.01 K/uL (0-0.2); HEMATOCRIT 31.3 % (42-52); IG% 0.6 %; LYMPH % 3.4 %; LYMPH ABS # 0.72 K/uL (1.2-3.4); MEAN CORPUSCULAR HEMOGLOBIN 33.5 pg (25-34); MEAN CORPUSCULAR HGB CONC 33.5 g/dl (32-36); MEAN PLATELET VOLUME 9.6 fL (7.4-10.4); MONO % 1.7 %; NEUT % 94.3 %; PLATELET COUNT 237 K/uL (130-400); RED BLOOD COUNT 3.13 M/uL (4.7-6.1); WHITE BLOOD COUNT 21.15 K/uL (4.8-10.8)
[2016-08-06] MEDS: PANTOprazole SOD 40 MG TAB PO SCH (08:34)
[2016-08-06] MEDS: POLYETHYLENE (MIRALAX) 17 GM PACK PO SCH (08:35)
[2016-08-06] MEDS: DOCUSATE SODIUM/SENNA 50/8.6MG TAB PO SCH (08:35)
[2016-08-06] MEDS: MAGNESIUM OXIDE 400 MG TAB PO SCH ×2 (08:35→22:26)
[2016-08-06] MEDS: LIDODERM (LIDOCAINE) PATCH 5% TD SCH (08:43)
[2016-08-06 09:01] LABS: BUN/CREATININE RATIO 19.7 (10-20); CALCIUM 8.3 mg/dl (8.5-10.1); CREATININE 0.68 mg/dl (0.60-1.40)
[2016-08-06 09:18] LABS: ANISOCYTOSIS PRESENT; COMPLETE YES; POLYCHROMASIA 1+; TEAR DROP CELLS OCCASIONAL; VACUOLIZATION 1+
--- NOTE | 2016-08-06 10:48 | Progress Note ---
Subjective Subjective Date of Service: Aug 06, 2016. Pt evaluation today including: conversation w/ patient, conversation w/ family , physical exam, chart review, review of studies, review of inpatient medication list Notes: patient mentioned pain somewhat improved, daughter at bedside Problem List Medical Problems: (1) Fracture of rib of right side Status: Acute (2) Lumbago Status: Chronic (3) Mesothelioma Status: Chronic (4) Pleuritic chest pain Status: Acute (5) Reflux Esophagitis Status: Chronic (6) Right lower lobe lung mass Status: Acute (7) Sepsis Status: Acute Review of Systems Constitutional: No fever ENT: No hearing loss Respiratory: No cough Cardiac: No chest pain Abdomen: No pain Male : No dysuria Neurologic: No memory loss Psychiatric: No depression symptoms Endo: No fatigue Physical Exam Vital Signs Vital Signs Past 24 Hours: Date Time Temp Pulse Resp B/P Pulse Ox O2 Delivery O2 Flow Rate FiO2 08/06/16 08:40 Nasal Cannula 2.0 08/06/16 07:55 36.4 81 18 127/86 100 Nasal Cannula 2.0 08/06/16 07:16 82 18 93 Nasal Cannula 1.0 08/06/16 03:32 36.6 103 21 124/81 93 Nasal Cannula 2.0 08/06/16 02:03 77 18 93 Nasal Cannula 0.5 08/06/16 00:02 36.6 94 20 118/74 90 1.0 08/05/16 23:59 Nasal Cannula 3.0 08/05/16 20:00 Nasal Cannula 3.0 08/05/16 19:40 106 20 97 Nasal Cannula 2.0 08/05/16 19:38 36.5 98 18 112/74 95 Nasal Cannula 2.0 08/05/16 15:06 Nasal Cannula 3.0 08/05/16 14:40 36.6 100 16 117/73 98 08/05/16 14:35 95 20 98 Nasal Cannula 3.0 08/05/16 11:54 36.9 97 20 120/81 97 Nasal Cannula 3.0 Physical Exam: General Appearance: WD/WN, no apparent distress Eyes: bilateral eyes normal inspection ENT: hearing grossly normal, pharynx normal Neck: supple, no JVD Respiratory/Chest: no respiratory distress, + decreased breath sounds, + rales Cardiovascular: no edema, no JVD Abdomen: normal bowel sounds, soft, no organomegaly Extremities: normal range of motion, normal inspection Neurologic/Psychiatric: alert Skin: normal color, no rash Medications Medications: Current Inpatient Medications Medications (Trade) Dose Ordered Sig/Chao Route Start Time Stop Time Status Last Admin Dose Admin Folic Acid (Folvite Tab) 1 mg DAILY PO 07/31/16 08:00 08/30/16 08:59 08/06/16 08:35 1 MG Lorazepam (Ativan Tab) 1 mg HS PO 07/30/16 21:00 08/29/16 20:59 08/05/16 21:08 1 MG Magnesium Oxide (Mag-Ox Tab) 400 mg Q12 PO 07/30/16 21:00 08/29/16 20:59 08/06/16 08:35 400 MG Polyethylene (Miralax Powder Packet) 17 gm DAILY PO 07/31/16 08:00 08/30/16 08:59 08/03/16 08:40 17 GM Promethazine HCl (Phenergan Tab) 25 mg Q6H PRN PO 07/30/16 19:00 08/29/16 18:59 Senna/Docusate Sodium (Senokot S Tab) 2 tab DAILY PO 07/31/16 08:00 08/30/16 08:59 08/06/16 08:35 2 TAB Pantoprazole Sodium (Protonix Tab) 40 mg QAM PO 07/31/16 08:00 08/30/16 08:59 08/06/16 08:34 40 MG Miscellaneous (Fentanyl Patch Remove & Waste) 1 ea Q3D N/A 08/02/16 21:00 09/01/16 20:59 08/05/16 21:17 1 EA Miscellaneous Information (Check Fentanyl Patch Placement) 1 ea QS N/A 07/31/16 00:00 08/30/16 00:00 08/06/16 08:36 1 EA Acetaminophen (Tylenol Tab) 650 mg Q4H PRN PO 07/30/16 19:00 08/29/16 18:59 Magnesium Hydroxide (Milk Of Magnesia Susp) 30 ml Q6H PRN PO 07/30/16 19:00 08/29/16 18:59 Diphenhydramine HCl (Benadryl Inj) 25 mg Q4H PRN IV 07/30/16 19:00 08/29/16 18:59 Al Hydrox/Mg Hydrox/ Simethicone 15 ml 15 ml Q4H PRN PO 07/30/16 19:00 08/29/16 18:59 08/01/16 18:35 15 ML Promethazine HCl/ Sodium Chloride (Phenergan Inj/ Nss 50ml) 50.5 ml @ 202 mls/hr Q4H PRN IV 07/30/16 19:00 08/29/16 18:59 Zolpidem Tartrate (Ambien Tab) 5 mg HSZ PRN PO 07/30/16 19:00 08/29/16 18:59 Ondansetron HCl (Zofran Inj) 4 mg Q6H PRN IV 07/30/16 19:00 08/29/16 18:59 08/02/16 19:35 4 MG Morphine Sulfate (MoRPHine SULFATE INJ) 2 mg Q2H PRN IV 07/30/16 19:00 08/13/16 18:59 08/06/16 03:49 2 MG Morphine Sulfate (MoRPHine SULFATE INJ) 4 mg Q2H PRN IV 07/30/16 19:00 08/13/16 18:59 08/06/16 00:25 4 MG Guaifenesin 600 mg 600 mg BID PO 07/30/16 20:34 08/29/16 20:59 08/06/16 08:33 600 MG Sodium Chloride (Nss 1000ml) 1,000 ml @ 125 mls/hr Q8H IV 07/30/16 21:15 08/29/16 17:22 08/06/16 05:55 125 MLS/HR Ipratropium [place] (Atrovent 0.02% 0.5MG/2.5ML Neb) 0.5 mg Q6R INH 07/31/16 03:00 08/30/16 02:59 08/06/16 07:16 0.5 MG Levalbuterol (Xopenex 1.25MG/ 0.5ML Neb) 1.25 mg Q6R INH 07/31/16 03:00 08/30/16 02:59 08/06/16 07:16 1.25 MG Ipratropium [place] (Atrovent 0.02% 0.5MG/2.5ML Neb) 0.5 mg Q2H PRN INH 07/30/16 21:15 08/29/16 21:14 Levalbuterol 1.25 mg 1.25 mg Q2H PRN INH 07/30/16 21:15 08/29/16 21:14 Lorazepam/Syringe (Ativan Inj/ Syringe) 1 ml @ 1 mls/min Q4H PRN IV 07/30/16 23:00 08/29/16 22:59 08/06/16 00:26 1 MLS/MIN Fentanyl (Duragesic Patch) 50 mcg Q3D@2100 TD 07/30/16 23:50 08/13/16 23:49 08/05/16 21:11 50 MCG Miscellaneous (Fentanyl Patch Remove & Waste) 1 ea Q3D@2059 N/A 08/02/16 20:59 09/01/16 20:58 08/05/16 21:16 1 EA Miscellaneous Information (Check Fentanyl Patch Placement) 1 ea QS N/A 07/31/16 08:00 08/30/16 07:59 08/06/16 08:36 1 EA Fentanyl (Duragesic Patch) 100 mcg Q3D@2100 TD 08/02/16 21:00 08/16/16 20:59 08/05/16 21:11 100 MCG Lidocaine (Lidoderm Patch 5%) 1 patch DAILY@09 TD 08/04/16 09:00 09/03/16 08:59 08/06/16 08:43 1 PATCH Miscellaneous 1 ea 1 ea DAILY@2100 N/A 08/04/16 21:00 09/03/16 20:59 08/05/16 21:18 1 EA Methylprednisolone Sodium Succinate/ Syringe (Solu-Medrol IV/ Syringe) 0.64 ml @ 1.5 mls/min Q6H IV 08/04/16 14:00 09/03/16 13:59 08/06/16 08:36 1.5 MLS/MIN Ketorolac Tromethamine (Toradol Inj) 30 mg Q6H PRN IV. 08/04/16 18:00 08/09/16 17:59 08/05/16 00:46 30 MG Fentanyl (Duragesic Patch) 12 mcg Q3D@2100 TD 08/04/16 20:15 08/18/16 20:14 08/05/16 21:20 12 MCG Miscellaneous (Fentanyl Patch Remove & Waste) 1 ea Q3D@2058 N/A 08/05/16 20:59 09/04/16 20:58 08/05/16 21:10 1 EA Miscellaneous Information (Check Fentanyl Patch Placement) 1 ea QS N/A 08/05/16 00:00 09/04/16 00:00 08/06/16 08:36 1 EA Tapentadol (Nucynta Tab) 50 mg Q4H PRN PO 08/04/16 20:15 08/18/16 20:14 08/06/16 06:09 50 MG Gabapentin (Neurontin Cap) 100 mg TID PO 08/05/16 08:00 09/04/16 07:59 08/06/16 08:33 100 MG Laboratory Data Labs: Last 24 Hours Test 08/06/16 07:47 White Blood Count 21.15 K/uL Red Blood Count 3.13 M/uL Hemoglobin 10.5 g/dL Hematocrit 31.3 % Mean Corpuscular Volume 100.0 fL Mean Corpuscular Hemoglobin 33.5 pg Mean Corpuscular Hemoglobin Concent 33.5 g/dl Platelet Count 237 K/uL Mean Platelet Volume 9.6 fL Neutrophils (%) (Auto) 94.3 % Lymphocytes (%) (Auto) 3.4 % Monocytes (%) (Auto) 1.7 % Eosinophils (%) (Auto) 0.0 % Basophils (%) (Auto) 0.0 % Neutrophils # (Auto) 19.93 K/uL Lymphocytes # (Auto) 0.72 K/uL Monocytes # (Auto) 0.36 K/uL Eosinophils # (Auto) 0.01 K/uL Basophils # (Auto) 0.01 K/uL RDW Standard Deviation 81.5 fL RDW Coefficient of Variation 23.4 % Immature Granulocyte % (Auto) 0.6 % Immature Granulocyte # (Auto) 0.12 K/uL Toxic Vacuolation 1+ Polychromasia 1+ Anisocytosis PRESENT Tear Drop Cells OCCASIONAL Sodium Level 136 mmol/L Potassium Level 4.0 mmol/L Chloride Level 98 mmol/L Carbon Dioxide Level 32 mmol/L Anion Gap 6.0 mmol/L Blood Urea Nitrogen 13 mg/dl Creatinine 0.68 mg/dl Est Creatinine Clear Calc Drug Dose 108.9 ml/min Estimated GFR () 118.6 Estimated GFR (Non- 102.4 BUN/Creatinine Ratio 19.7 Random Glucose 134 mg/dl Calcium Level 8.3 mg/dl Assessment and Plan A 60 yo male comes with Malignant mesothelioma with bilateral pneumonia, pleural effusions, pathologic rib fractures, improved cont levofloxacin 750 mg IV every 24 hours, stopped iv zosyn, cont guaifenesin extended release 600 mg by mouth twice a day, and Xopenex with Atrovent nebulizer to use every 6 hours while awake and every 2 hours when necessary. Known to Dr Jensen and Dr Landin, has appt at [facility] Oncology, no chemoTx now due to pneumonia CT head w/o contrast: 1. Multifocal areas of subtle changes in density characteristics throughout both cerebral hemispheres. 2. Although possibly secondary to acute/subacute infarct, an MRI of the brain should be obtained with contrast enhancement to exclude metastatic change I discussed results with and patient and need of MRI, family do not want MRI Pleural effusion, parapneumonic vs malignant effusion sec to mesothelioma, consulted CT surgery for possible thoracentesis Chronic pain syndrome with acute worsening secondary to pathologic rib fractures appreciated pain mx consult fentanyl patch 12 g every 72 hours, and continue oxycodone at 10 mg by mouth increase from every 4 to every 2 hours when necessary. added Tapentadol and gabapentin cont IV morphine sulfate 2-4 mg IV every 2 hours when necessary Solu-Medrol to 40 mg IV every 6 hours was added in addition to above to control his pain, taper as tolerated Anxiety lorazepam 1 mg by mouth at bedtime to 1 mg by mouth every 4 hours when necessary. GERD pantoprazole 40 mg by mouth daily. Constipation continue Senokot 2 tablets by mouth daily and MiraLAX 17 g by mouth daily. met with family, patient wants thoracentesis done for palliative purposes to make his breathing better family talked to oncologist (Dr Easley) from [place] regarding clinical trial mesothelioma treatment, he said he does not qualify for any trial treatments. Family and patient wants to have thoracentesis done and then go home with hospice next week, they requested to continue all treatments until thoracentesis is done. I talked to Dr Kessler regarding this case and consulted Dr Thompson palliative care consult regarding possible home hospice He should be d/c home in next few days after palliative thoracentesis is done with hospice. His is ok with stopping all medications on d/c that prolonging suffering and starting morphine and ativan prn DNR Continued [facility] stay due to: multiple IV medications needed
--- NOTE | 2016-08-06 11:43 | Medical Consult ---
Consultation Note Date of Service Aug 06, 2016. Consultation Note Consult Dictated #[id number]
--- NOTE | 2016-08-06 12:37 | Progress Note ---
Progress Note Date of Service Aug 06, 2016. Progress Note talked to and patient, they do not want thoracentesis, and want to go home tomorrow with transition to hospice in 1-2 weeks after seeing his PCP. I will cancel Dr Thompson consult. Patient is DNR as per advance directives (reviewed and copied to chart)
--- NOTE | 2016-08-06 13:27 | CONSULTATION REPORT ---
DATE OF CONSULTATION: 08/06/2016 REASON FOR CONSULTATION: Pleural effusions. HISTORY OF PRESENT ILLNESS: This is a 60-year-old male who is known to the service of Dr. Thompson. We originally saw the patient on July 19 of this year. This patient has a history of malignant mesothelioma. He receives the majority of his care at [facility], where he underwent a right video-assisted thoracoscopy and a right PleurX catheter placement. As he lives locally in the [facility], he was admitted to [facility] on July 18 of this year secondary to pleuritic chest pain. We were asked to participate in his care due to indwelling PleurX catheter. At that time, the patient reported that he was getting minimal drainage from his PleurX catheter and after review of x-rays, it was determined that the best course of action was removal of his PleurX catheter, which is undertaken. The patient has since followed with an oncologist in [place] as well as local oncologist and as the patient has a metastatic mesothelioma, he is not going to receive any further oncologic treatments at this time. The patient was admitted to [facility] most recently on July 30 of this year secondary to hypoxia and bilateral pneumonia. The patient was previously seen in consultation by Dr. Polo Acevedo in pulmonary medicine and the patient declined any type of thoracentesis or further diagnostic evaluation at that time. We have now been asked to participate in the patient's care as he is not considering having a diagnostic and therapeutic thoracentesis. I visited with the patient at bedside and he says that his breathing is fine while he is at rest. I questioned him on numerous other symptoms and he has not had any falls, head injuries or visual changes. He denies any tinnitus or sore throat. He denies neck pain or chest pain at this time. He says that he does get some shortness of breath with activity, but while at rest, he is okay. He currently denies any fever, shakes, or chills. He denies nausea, vomiting, abdominal pain or myalgias. No dysuria is noted. He does not report any history of stroke, seizure, DVT or PE. Diagnostic data was reviewed and most recent labs were from today, which showed a white blood cell count of 21.5, hemoglobin and hematocrit 10.5 and 31.3 and platelet count is within the normal range. It should be noted that at time of admission, his white blood cell count was 18.2. Coagulation studies revealed an INR of 1.2. Chemistry profile showed sodium, potassium, BUN and creatinine all within the normal range. He has had a urinalysis that was negative for infection and he also had serology for influenza A and B, both of which were negative. He has had blood cultures that have no growth and these are the final results and an MRSA nasal swab was noted to be negative. Notable imaging this study was a chest x-ray from the that showed findings showing small bilateral pleural effusions. He did have a CT scan of the chest that showed that the patient was noted to have progressive metastatic disease in both hemithoraces when compared to prior films. This study was noted to be negative for pulmonary emboli. The patient was noted to have a small right hydropneumothorax with a progressive right pleural effusion and he is also noted to have a moderate left pleural effusion. CT scan of his head was also performed that showed multiple areas of subtle changes that were concerning for either acute or subacute infarct versus metastatic changes. PAST MEDICAL HISTORY: Includes, 1. Malignant mesothelioma. 2. GERD. 3. Prostate cancer. PAST SURGICAL HISTORY: Includes, 1. Right video-assisted thoracoscopy. 2. Right PleurX catheter insertion. 3. Right PleurX catheter removal. 4. Lumbar spine surgery. 5. Prostatectomy. 6. Right ulnar nerve decompression. ALLERGIES: INCLUDE ADHESIVES AND HYDROMORPHONE. OUTPATIENT MEDICATIONS: Include, 1. Vitamin B12 injection every 90 days. 2. Nexium 40 mg daily. 3. Fentanyl patch 100 mcg every 72 hours. 4. Folic acid 1 mg daily. 5. Advil as needed. 6. Ativan 1 mg at bedtime. 7. Mag ox 400 mg every 12 hours. 8. Oxycodone 10 mg every 4 hours. 9. MiraLax 17 grams daily. 10. Phenergan as needed. 11. Colace 2 tablets daily. SOCIAL HISTORY: The patient previously worked at [employer], where he believes he was exposed to asbestos. FAMILY HISTORY: Significant for diabetes. REVIEW OF SYSTEMS: As described above. PHYSICAL EXAMINATION: VITAL SIGNS: The patient is currently afebrile with a temperature of 36.7. It is noteworthy to mention he has been afebrile since the time of admission. Pulse 94 and regular, respirations are 18 and unlabored, blood pressure 121/68, and pulse ox is 90% on room air. SKIN: Warm with good turgor. GENERAL: He is alert and oriented x3 in no distress. HEENT: Head is atraumatic and normocephalic. EYES: Pupils equal, round and reactive to light and accommodation. Extraocular motions are intact. EARS: Auditory acuity is grossly intact. NOSE: Nasal patency was intact. Sinuses are nontender. Mouth is moist without exudates. NECK: Supple. There is no JVD. CARDIOVASCULAR: Regular rate and rhythm. LUNGS: Breath sounds were decreased bilaterally at the bases. There are no rales, rhonchi, wheezing or use of accessory muscles. ABDOMEN: Soft and nontender. EXTREMITIES: Revealed no cyanosis, clubbing or edema. NEUROLOGIC: Revealed cranial nerves II through XII are grossly intact. No focal deficits are noted. DIAGNOSTIC DATA: As noted above. IMPRESSION: A 60-year-old male with bilateral pleural effusions. PLAN: I had a lengthy discussion with the patient and his at the bedside, outlining of the possible causes of his pleural effusions. Certainly, both pleural effusions could be the result of malignant process from his mesothelioma; however, he has been admitted with bilateral pneumonia and certainly, this effusions could be parapneumonic. The patient was offered a diagnostic and therapeutic thoracentesis, which they declined at this time. I did discuss also the possibility that if the patient does undergo thoracentesis, fluid could merely recur and discussed the possibility of placing a PleurX catheter; however, the patient says that he is not interested in this at this time. The patient and his note that they have several obligations that they need to take care of at home and they realized that any possible procedural intervention could have potential complications, which is why they are reluctant to undergo any procedural intervention and asked if they could return to have this done as an outpatient. I did discuss with them that this is a possibility; however, informed them keeping in mind that his effusions could get worse, causing worsening dyspnea on exertion. I also discussed with him that the possibility that this is a parapneumonic effusion, this may result in sepsis. Despite outlining these risks, the patient did express the understanding and again does not wish to undergo a thoracentesis or any other procedural intervention at this time. The patient notes that he is not being discharged today and asked that we revisit him tomorrow morning after he and his had a chance to further think about possible procedural intervention and we will reconsider possible thoracentesis at that time. We will follow along while the patient is in the hospital.
[2016-08-06] MEDS: LORAZEPAM 1 MG TAB PO SCH (22:26)
[2016-08-07] VITALS (8 sets, daily range): BP systolic 118–140; BP diastolic 76–80; PULSE 85–107; TEMP 36.4–36.7; O2SAT 87–97
[2016-08-07] MEDS: METHYLPREDNISOLONE IV 40 MG in SYRINGE 0 ML IV SCH ×2 (01:42→08:51)
[2016-08-07] MEDS: LEVALBUTEROL 1.25MG/0.5ML NEB INH SCH ×3 (01:43→14:08)
[2016-08-07] MEDS: IPRATROPIUM BROMIDE NEB SOLN 0.02% 2.5 ML VIAL INH SCH ×3 (01:43→14:08)
[2016-08-07] MEDS: SODIUM CHLORIDE 0.9% 1000ML 1,000 ML IV SCH (05:13)
[2016-08-07 07:55] LABS: HEMATOCRIT 31.4 % (42-52); MEAN CELL VOLUME 97.5 fL (80-100); MEAN CORPUSCULAR HEMOGLOBIN 32.6 pg (25-34); MEAN CORPUSCULAR HGB CONC 33.4 g/dl (32-36); MEAN PLATELET VOLUME 9.3 fL (7.4-10.4); PLATELET COUNT 201 K/uL (130-400); RED BLOOD COUNT 3.22 M/uL (4.7-6.1); WHITE BLOOD COUNT 24.13 K/uL (4.8-10.8)
[2016-08-07 08:23] LABS: BUN/CREATININE RATIO 20.3 (10-20); CALCIUM 8.1 mg/dl (8.5-10.1); CREATININE 0.75 mg/dl (0.60-1.40); POTASSIUM 3.8 mmol/L (3.5-5.1)
[2016-08-07] MEDS: POLYETHYLENE (MIRALAX) 17 GM PACK PO SCH (08:42)
[2016-08-07] MEDS: DOCUSATE SODIUM/SENNA 50/8.6MG TAB PO SCH (08:43)
[2016-08-07] MEDS: CHECK FENTANYL PATCH PLACEMENT SCH ×6 (08:50→08:51)
[2016-08-07] MEDS: GUAIFENESIN 200 MG TAB PO SCH (08:54)
[2016-08-07] MEDS: GABAPENTIN 100 MG CAP PO SCH (08:54)
[2016-08-07] MEDS: TAPENTADOL HCL 50 MG TAB PO PRN ×2 (08:55→14:20)
[2016-08-07] MEDS: PANTOprazole SOD 40 MG TAB PO SCH (08:55)
[2016-08-07] MEDS: MAGNESIUM OXIDE 400 MG TAB PO SCH (08:55)
[2016-08-07] MEDS: LIDODERM (LIDOCAINE) PATCH 5% TD SCH (09:00)
[2016-08-07 09:05] LABS: ANISOCYTOSIS PRESENT; BASO ABS # 0.01 K/uL (0-0.2); COMPLETE YES; IG% 0.8 %; LYMPH % 5.6 %; LYMPH ABS # 1.34 K/uL (1.2-3.4); MONO % 0.7 %; NEUT % 92.9 %; POLYCHROMASIA 1+; VACUOLIZATION 3+
--- NOTE | 2016-08-07 11:06 | PROGRESS NOTE ---
DATE: 08/07/2016 Plan of care discussed with Dr. Baltazar. CHIEF COMPLAINT: Right-sided chest wall pain. SUBJECTIVE: Mr. Johnston is a 60-year-old white male with a history of malignant mesothelioma, who was recently admitted for pleural effusions, chest pain, and shortness of breath. The patient indicates adequate pain control at this time with use of fentanyl at 162 mcg q. 72 hours as well as Nucynta 50 mg q. 4 h. on a p.r.n. basis for breakthrough pain. The patient is tolerating Nucynta without side effects and adequate pain control. He has had significant difficulties tolerating hydromorphone in the past secondary to nausea/vomiting and minimal efficacy from prior utilization of oxycodone and OxyContin. He is also utilizing Lidoderm patch and gabapentin was initiated during this inpatient admission. He is tolerating these medications without notable side effects, which he does find to be efficacious as well. The patient has chosen to defer any further treatment directed at his malignant mesothelioma and has also deferred thoracentesis or PleurX catheter placement upon this admission. The patient denies change in location or characteristics of his typical pain which remains in the right posterolateral chest wall location, which he describes as aching and burning in characteristic. He has no further constitutional complaints at today's visit. OBJECTIVE: VITAL SIGNS: Temperature 36.7 degrees Celsius, pulse 99, respirations 24, BP 118/76, pulse oximetry 95 with O2 via nasal cannula at 2 liters. GENERAL: The patient is lying quietly upon entering the room, accompanied by his , in no acute distress. Speech and thought process are appropriate. Mood and affect are appropriate. His cognition is intact. CHEST WALL: The patient is moderately tender to palpation over the right posterolateral and anterior chest wall to palpation. He is moderately tender with AP as well as lateral compression. There is no evidence of skin breakdown. Lidoderm patch is not in place at this time. Fentanyl patches were noted to be in place in the right suprascapular location without evidence of skin irritation. NEUROLOGIC: Cranial nerves are grossly intact. Ambulatory function not witnessed. ASSESSMENT: 1. Malignant mesothelioma. 2. Rib fractures. 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 4. Hydropneumothorax. TREATMENT AND RECOMMENDATIONS: 1. Will recommend maintaining fentanyl at 162 mcg q. 72 hours at this time. 2. Maintain utilization of Lidoderm patch, on for 12 hours, off for 12 hours. 3. Will progress gabapentin to 200 mg t.i.d. 4. Will recommend utilization of Nucynta 50 mg q. 4 h. on a p.r.n. basis for p.r.n. breakthrough pain control as the patient has had significant difficulties tolerating hydromorphone in the past and has found oxycodone to be without efficacy. We again did discuss intercostal nerve block with persisting breakthrough pain in the outpatient setting which has been discussed on multiple occasions. He will have followup in the pain clinic upon discharge. 5. Will continue to follow the patient during hospitalization. SHILA
[2016-08-07] MEDS ORDERED: DRGTP12 TD (11:49)
[2016-08-07] MEDS ORDERED: PRD20 PO (11:49)
[2016-08-07] MEDS ORDERED: DRGTP50 TD (11:49)
[2016-08-07] MEDS ORDERED: ATRINS INH (11:49)
[2016-08-07] MEDS ORDERED: PRD10 PO (11:49)
[2016-08-07] MEDS ORDERED: NRN100 PO (11:49)
[2016-08-07] MEDS ORDERED: GUAI1TAB68 PO (11:49)
[2016-08-07] MEDS ORDERED: XPNINS1255 INH (11:49)
[2016-08-07] MEDS ORDERED: DRGTP100 TD (11:49)
[2016-08-07] MEDS ORDERED: NCY50 PO (11:49)
[2016-08-07] MEDS ORDERED: LDDP5 TD (12:00)
[2016-08-07] MEDS ORDERED: LEVO1TAB35 PO (12:00)
--- NOTE | 2016-08-07 12:02 | Discharge Instructions ---
Discharge Instructions Admission Reason for Admission: Bilateral Pneumonia,Hypoxia Discharge Discharge Diagnosis / Problem: Bilateral pleural effusions Discharge Goals Goal(s): Decrease discomfort, Improve function Activity Recommendations Activity Limitations: resume your previous activity . Instructions / Follow-Up Instructions / Follow-Up Pneumonia/shortness of breath: - Use Levaquin 750 mg for 3 more days - Use Prednisone as directed 60 mg daily for 4 days( 3 X20 mg tab) 40 mg daily for 4 days ( 2x20 mg tabs) 20 mg daily for 4 days( 1X20 mg tab) 10 mg daily for 4 days and stop - You may use Atrovent and Xopenex as needed every 6 hours for wheezing and shortness of breath - You may use guaifenesin 600 mg twice daily - You will be provided with oxygen to use at home by the hospice agency Pain control: - Fentanyl patch 162 Mcg every 72 hours - Oxy IR 10 mg every 4 hours - Gabapentin 200 mg three times daily - Lidocaine patch on for 12 hours and off for 12 hours - Nucynta 50 mg every 4 hours for breakthrough pain - Follow up with pain management as an outpatient Agitation: - You may use 1 mg Ativan at bedtime or every 4 hours as needed for agitation GERD pantoprazole 40 mg by mouth daily. Constipation: continue Senokot 2 tablets by mouth daily and MiraLAX 17 g by mouth daily. Current Hospital Diet Patient's current hospital diet: Regular Diet Discharge Diet Recommended Diet: Regular Diet Pending Studies Studies pending at discharge: no Laboratory Results Last 24 Hours Test 08/07/16 07:48 White Blood Count 24.13 K/uL Red Blood Count 3.22 M/uL Hemoglobin 10.5 g/dL Hematocrit 31.4 % Mean Corpuscular Volume 97.5 fL Mean Corpuscular Hemoglobin 32.6 pg Mean Corpuscular Hemoglobin Concent 33.4 g/dl Platelet Count 201 K/uL Mean Platelet Volume 9.3 fL Neutrophils (%) (Auto) 92.9 % Lymphocytes (%) (Auto) 5.6 % Monocytes (%) (Auto) 0.7 % Eosinophils (%) (Auto) 0.0 % Basophils (%) (Auto) 0.0 % Neutrophils # (Auto) 22.41 K/uL Lymphocytes # (Auto) 1.34 K/uL Monocytes # (Auto) 0.17 K/uL Eosinophils # (Auto) 0.00 K/uL Basophils # (Auto) 0.01 K/uL RDW Standard Deviation 81.2 fL RDW Coefficient of Variation 23.5 % Immature Granulocyte % (Auto) 0.8 % Immature Granulocyte # (Auto) 0.20 K/uL Toxic Vacuolation 3+ Polychromasia 1+ Anisocytosis PRESENT Sodium Level 137 mmol/L Potassium Level 3.8 mmol/L Chloride Level 98 mmol/L Carbon Dioxide Level 31 mmol/L Anion Gap 8.0 mmol/L Blood Urea Nitrogen 15 mg/dl Creatinine 0.75 mg/dl Est Creatinine Clear Calc Drug Dose 98.8 ml/min Estimated GFR () 113.9 Estimated GFR (Non- 98.3 BUN/Creatinine Ratio 20.3 Random Glucose 124 mg/dl Calcium Level 8.1 mg/dl Medical Emergencies . Who to Call and When: Medical Emergencies: If at any time you feel your situation is an emergency, please call 911 immediately. . Non-Emergent Contact Non-Emergency issues call your: Primary Care Provider . Past History Medical & Surgical History: (1) History of prostate cancer (2) Mesothelioma . "Provider Documentation" section prepared by Ruth Albaardo. VTE Core Measure Inpt VTE Proph given/why not?: SCD's
[2016-08-07] MEDS ORDERED: GABAPENTIN 100 MG CAP PO SCH (14:00)
--- NOTE | 2016-08-07 14:22 | Discharge Summary ---
Discharge Summary Date of Service Aug 07, 2016. (Ruth Albarado MD) Discharge Summary Admission Date: Jul 30, 2016 at 18:53 Discharge Date: Aug 07, 2016 Discharge Disposition: Home with services Principal Diagnosis: Bilateral pleural efffusions, mesothelioma Problems/Secondary Diagnoses: (1) Lumbago Status: Chronic (2) Mesothelioma Status: Chronic (3) Reflux Esophagitis Status: Chronic Consultations: Pulmonology. Cardiothoracic surgery. Pain management (Ruth Albarado MD) Medication Reconciliation New Medications: Levofloxacin (Levaquin) 750 Mg Tab 750 MG PO DAILY for 3 Days, TAB Prednisone (Prednisone) 10 Mg Tab 10 MG PO DAILY, #4 TABS Prednisone (Prednisone) 20 Mg Tab 20 MG PO DAILY, #24 TAB Fentanyl (Fentanyl) 100 Mcg Tdsy 100 MCG TD Q3D@2100 for 15 Days Fentanyl (Fentanyl) 12 Mcg Tdsy 12 MCG TD Q3D@2100 for 15 Days Fentanyl (Fentanyl) 50 Mcg Tdsy 50 MCG TD Q3D@2100 for 15 Days Gabapentin (Gabapentin) 100 Mg Cap 200 MG PO TID for 30 Days, CAP Guaifenesin (Organ-I Nr) 200 Mg Tab 600 MG PO BID for 7 Days, TAB Ipratropium [place] (Ipratropium [place]) 0.5 Mg/2.5 Ml Nebu 0.5 MG INH Q6R PRN for Shortness of Breath for 30 Days Levalbuterol (Levalbuterol) 1.25 Mg/0.5 Ml Nebu 1.25 MG INH Q6R PRN for Shortness of Breath for 30 Days Lidocaine (Lidocaine) 1 Patch Tdsy 1 PATCH TD DAILY@09 for 15 Days On for 12 hours and off for 12 hours Tapentadol HCl (Nucynta) 50 Mg Tab 50 MG PO Q4H PRN for Pain, #30 TAB Continued Medications: Cyanocobalamin (B-12 Compliance Injection) 1,000 Mcg/Ml Kit 1000 MCG INJ UD GETS EVERY 90 DAYS Esomeprazole Magnesium (Nexium) 40 Mg Capcr 40 MG PO DAILY, CAP Folic Acid (Folvite) 1 Mg Tab 1 MG PO DAILY Ibuprofen Tab (Advil) 200 Mg Tab 200-600 MG PO Q4H PRN for Pain, TAB Lorazepam (Ativan) 1 Mg Tab 1 MG PO HS, TAB Magnesium Oxide (Magnesium-Oxide) 400 Mg Tab 400 MG PO Q12 for 7 Days Oxycodone Hcl (Oxycodone Hcl) 5 Mg Cap 10 MG PO Q4H Polyethylene (Miralax) 17 Gm Pow 17 GM PO DAILY Promethazine Hcl (Phenergan) 25 Mg Tab 25 MG PO Q6H PRN for Nausea, #12 TAB Sennosides-Docusate Sodium (Docusate Sodium/Senna) 1 Tab Tab 2 TAB PO DAILY Discontinued Medications: Fentanyl (Fentanyl) 100 Mcg Tdsy 100 MCG TD Q72H for 12 Days, #4 Discharge Exam Doing better. wanted to go home to "take care of a legal matter' and had declined thoracocentesis. denies chest pain , breathing is better though he thinks he gets a "little excited" sometimes and gets out of breath . Review of Systems: Constitutional: No chills, No fever Eyes: No worsening of vision ENT: No hearing loss Respiratory: No sputum Cardiovascular: No chest pain Abdomen: No nausea, No pain Physical Exam: General Appearance: WD/WN, no apparent distress Eyes: normal inspection ENT: normal ENT inspection, hearing grossly normal Neck: supple Respiratory/Chest: chest non-tender, + decreased breath sounds Cardiovascular: regular rate, rhythm Abdomen / GI: normal bowel sounds, non tender, soft Extremities: no pedal edema Neurologic/Psychiatric: alert, normal mood/affect Skin: normal color (Ruth Albarado MD) Hospital Course The patient is a 60-year-old male, diagnosed with mesothelioma April 2016, and referred by Dr. Grossman for worsening chest pain. He was recently treated for a hydropneumothorax with chest tube, which was removed last week. He is presently undergoing chemotherapy. His pain is managed with fentanyl patch 100 g per hour, which he feels is effective, but his breakthrough medication of oxycodone 5 mg by mouth every 4-6 hours is not as effective. His oncologist is Dr. Bermudez, and and to this point has undergone 21 rounds of chemotherapy and 10 radiation treatments. He is scheduled to see a mesothelioma specialist in [place] on Sunday in 5 days. His son reports that he's had 3 previous rib fractures. He also reports that his father has become more disoriented over the past week, and at times becomes more difficult to deal with. The son also attributes this to worsening pain and worsening anxiety. Malignant mesothelioma with bilateral pneumonia, pleural effusions, pathologic rib fractures - Continue oxygen ( to be provided for by hospice) - Received IV Levaquin for 7 days, discharged with 3 days of PO Levaquin 750 mg - cont guaifenesin extended release 600 mg by mouth twice a day, and Xopenex with Atrovent nebulizer to use every 6 hours as needed - prednisone taper starting at [address] head w/o contrast: 1. Multifocal areas of subtle changes in density characteristics throughout both cerebral hemispheres. 2. Although possibly secondary to acute/subacute infarct, an MRI of the brain should be obtained with contrast enhancement to exclude metastatic change discussed results with and patient and need of MRI, family do not want MRI Pleural effusion, parapneumonic vs malignant effusion sec to mesothelioma, consulted CT surgery for possible thoracentesis- patient declined thoracocentesis Chronic pain syndrome with acute worsening secondary to pathologic rib fractures - Pain management was consulted - Fentanyl patch 162 g every 72 hours, and continue oxycodone at 10 mg by mouth every 4 hours when necessary. - Lidocaine patch on for 12 hours and off for 12 hours - added Tapentadol for breakthrough pain and gabapentin 200 mg TID for neuropathic pain - To follow up with pain management as an outpatient Anxiety lorazepam 1 mg by mouth at bedtime to 1 mg by mouth every 4 hours when necessary. GERD pantoprazole 40 mg by mouth daily. Constipation: continue Senokot 2 tablets by mouth daily and MiraLAX 17 g by mouth daily. Discussed with his and him about hospice, they needed to go home to sort a legal matter and wanted to defer thoracocentesis at this time. Requested a referral for hospice who will also provide them with oxygen .Referral was made to hospice care Total Time Spent: Greater than 30 minutes This includes examination of the patient, discharge planning, medication reconciliation, and communication with other providers. (Ruth Albarado MD) Total Time Spent: Greater than 30 minutes Resident Physician Supervision Note: I was present with Dr. Albarado during the history and exam. I discussed the case with the resident and agree with the findings and plan as documented in the note. Any exceptions or clarifications are listed here: With the at bedside, I reviewed all of the options available, including the option of home hospice. At this point, oncology is not recommending additional curative therapies and the patient and his are interested in a more symptom- management/palliative approach. Additionally, there is a legal matter which he needs to attend to over the coming for days and, while he did not divulge the facts of the legal issues, it sounds as if this is important to him. Based on a review of the available medical records, combined with the patient's intent to pursue a palliative approach, he is an appropriate candidate for hospice care with a life expectancy less than six months should the disease take its normal trajectory. Documented By: Julian Petersen (Julian Petersen.,D.O.) Discharge Instructions Please refer to the electronic Patient Visit Report (Discharge Instructions) for additional information. (Ruth Albarado MD)
--- NOTE | 2016-08-10 10:47 | EDITING REQUIRED CODING QUERY ---
SEPSIS To promote full compliance with coding requirements relating to patient care, physician participation is requested in all cases of data report analyst uncertainty. Please assist us with the question(s) below: In responding to this query, please exercise your independent professional judgement. The fact that a question is asked does not imply that any particular answer is desired or expected. We appreciate your clarification on this issue. Throughout the medical record, you have clearly documented a localized infection and your patient has clinical evidence of a generalized sepsis or severe sepsis. The term urosepsis is a nonspecific entity and is coded as an UTI. If the patient has sepsis, severe sepsis, from an urinary source or some other source, please clarify in your response below. The medical record reflects the following clinical findings: Patient admitted with malignant mesothelioma, hydropneumothorax ,pneumonia, & leukocystosis. Levaquin ordered_ Please check below the condition you treated. Thank you. DELORIS Simmons CCS ( )Bacteremia (Nonspecific laboratory finding of bacteria in the blood) Specify Organism ( ) Present on Admission ( ) Not present on admission ( ) Unable to clinically determine ( ) Septicemia (Systemic disease associated with the presence of pathogenic microorganisms in the blood): Specify Organism ( ) Present on Admission ( ) Not present on admission ( ) Unable to clinically determine ( ) Sepsis Specify Organism Specify Associated Condition/Diagnosis ( ) Present on Admission ( ) Not present on admission ( ) Unable to clinically determine ( ) Severe Sepsis (Sepsis associated with acute organ dysfunction) Specify Organism Specify Associated Condition/Diagnosis ( ) Present on Admission ( ) Not present on admission ( ) Unable to clinically determine ( ) Septic Shock (Severe sepsis with acute circulatory failure, unexplained by other causes) ( ) Present on Admission ( ) Not present on admission ( ) Unable to clinically determine (X) Other, patient has: B/L pneumonia
== END 2016-08-07 15:45 | disposition hospice, home (50) | DRG 843 ==
LOC: ENRESERVDT → ENRESERVTM → EDBD 13:59 → C.EDA 14:01 → C.4E 18:53 → EDBEDREQSVC 19:09
PROVIDERS: ADMIT Hospitalist; ATTEND Family Medicine
DX: C45.9 Mesothelioma, unspecified (principal); J18.9 Pneumonia, unspecified organism; J94.8 Other specified pleural conditions; J91.0 Malignant pleural effusion; C78.7 Secondary malignant neoplasm of liver and intrahepatic bile duct; R09.02 Hypoxemia; K21.9 Gastro-esophageal reflux disease without esophagitis; Z83.3 Family history of diabetes mellitus; M84.58XS Pathological fracture in neoplastic disease, other specified site, sequela; Z87.891 Personal history of nicotine dependence; G89.3 Neoplasm related pain (acute) (chronic); K59.00 Constipation, unspecified; Z51.5 Encounter for palliative care; M79.2 Neuralgia and neuritis, unspecified; Z85.46 Personal history of malignant neoplasm of prostate; I50.9 Heart failure, unspecified; Z66 Do not resuscitate; F41.9 Anxiety disorder, unspecified; Z92.3 Personal history of irradiation; Z53.29 Procedure and treatment not carried out because of patient's decision for other reasons; G89.4 Chronic pain syndrome